=== PATIENT | female | born 1965 | race Caucasian/White ===

== ENCOUNTER 2024-10-20 07:59 | Outpatient (AMB) | payer BC, SELFPAY ==
--- NOTE | 2024-10-19 09:06 | MHC.NURWM ---
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
[2024-10-19 09:09] VITALS: BMI 35.2
--- NOTE | 2024-10-19 14:45 | MHC.NURWM ---
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
--- OUTSIDE RECORDS SUMMARY | 2024-10-20 08:08 | XMS_ITS | Encounter Summary ---
Author Organization [facility]: [facility] & [facility] Address [address] [facility] [address] [place] [address] Care Team Providers Care Crude Oil Treater Name Role Phone Generic, Provider Primary Care Provider [phone] Encounter Details Date Type Department Care Team (Late st Contact Info) Description 12/24/2011 [facility] Medicine at [address] [address] [address] Horner Social History Tobacco Use Types Packs/Day Years Used Date Smoking Tobacco: Every Day Cigarettes Comments:intermittent > 10 y ears Alcohol Use Standard Drinks/Week Comments Yes 0 (1 standard drink = 0.6 oz pur e alcohol) occasionally Sex and Gender Information Value Date Recorded Sex Assigned at Not on file Gender Identity Not on file Sexual Orientation Not on file documented as of this encounter Plan of Treatment Not on file documented as of this encounter Visit Diagnoses Not on filedocumented in this encounter Care Teams Crude Oil Treater Relationship Specialty Start Date End Date Generic, Provider [address] [address] PCP - General Generic/Test/No PCP 09/06/12 documented as of this encounter
--- OUTSIDE RECORDS SUMMARY | 2024-10-20 08:08 | XMS_ITS | Clinical Summary ---
Author Organization [facility] Address [address] [facility] [address] [place] [address] Care Team Providers Care Bush Hog Operator Name Role Phone No Pcp, Per Patient Primary Care Provider Unavai lable Allergies Active Allergy Reactions Criticality Noted Date Comments Codeine High 04/24/2024 Medications Medication Sig Dispensed Refills Start Date End Date Status ibuprofen 100 mg chewable tablet Chew 400 mg every 8 (eight) hours if needed for pain score 1-3. Active minoxidil (Loniten) 2.5 mg tabletIndications:And rogenetic alopecia Take 1/2 tablet nightly by mouth. 45 tablet 2 04/24/2024 Active finasteride (Proscar) 5 mg tabletIndications:And rogenetic alopecia TAKE 1 TABLET BY MOUTH DAILY BY MOUTH. 90 tablet 07/21/2024 Active Active Problems No known active problems Social History Tobacco Use Types Packs/Day Years Used Date Smoking Tobacco: Former Cigarettes Smokeless Tobacco: Never Tobacco Cessation:Counseling Given: Not Answered Sex and Gender Information Value Date Recorded Sex Assigned at Not on file Gender Identity Not on file Sexual Orientation Not on file Job Start Date Occupation Industry Not on file Not on file Not on file Plan of Treatment Upcoming Encounters Date Type Department Care Team (Late st Contact Info) Description 11/13/2024 4:00 PM EDT Office Visit [facility] Dermatology [address] [place] [address] Jade Jernigan MD [address] [place] [address] Health Maintenance Due Date Last Done Comments CT Colonography 1966 Colonoscopy 1966 Colorectal Cancer Screening 1966 FIT-DNA 1966 FIT 1966 FOBT 1966 HIV Screening 1966 Sigmoidoscopy 1966 Hepatitis B Vaccines (1 of 3 - 19+ 3-dose series) 1985 HPV/Cotest 02/04/1996 Pneumococcal Vaccine: 50+ Years (1 of 1 - PCV) 02/04/2016 COVID-19 Vaccine (4 - 2023-2 5 season) 2024 07/15/2021, 09/28/2020, 08/31/2020 Depression Screening 07/19/2024 Mammogram 09/02/2024 09/02/2022 Influenza Vaccine (Season Ended) 2025 Cervical Cancer Screening 07/27/2025 Pap Smear 07/27/2025 07/27/2022 DTaP/Tdap/Td Vaccines (2 - T d or Tdap) 04/17/2029 04/17/2019 Hepatitis A Vaccines Aged Out 04/17/2019 No long er eligible based on patient's age to complete this topic MMR Vaccines Completed 04/17/2019 Hepatitis C Screening Completed 07/27/2022 Zoster Vaccines Completed 08/04/2023, 04/18/2023 HIB Vaccines Aged Out No longer eligi ble based on patient's age to complete this topic HPV Vaccines Aged Out No longer eligi ble based on patient's age to complete this topic IPV Vaccines Aged Out No longer eligi ble based on patient's age to complete this topic Meningococcal B Vaccine Aged Out No l onger eligible based on patient's age to complete this topic Meningococcal Vaccine Aged Out No delfina arsenio eligible based on patient's age to complete this topic Rotavirus Vaccines Aged Out No longer eligible based on patient's age to complete this topic Care Teams Bush Hog Operator Relationship Specialty Start Date End Date No Pcp, Per Patient [place] PCP - General Seat Scooper Machine 04/24/24
--- OUTSIDE RECORDS SUMMARY | 2024-10-20 08:08 | XMS_ITS | Clinical Summary ---
Author Organization [facility] Address [address] [place] [phone] Phone Care Team Providers Care Pick Remover Name Role Phone Yas Alvarez MD Primary Care Provider [phone] Yas Alvarez MD Unavailable [phone] Allergies Active Allergy Reactions Criticality Noted Date Comments Codeine 02/07/2019 Medications Medication Sig Dispensed Refills Start Date End Date Status ergocalciferol (DRISDOL) 50,000 unit capsule take 1 capsule by mouth one time per week 8 capsule 5 03/21/2024 Active diclofenac sodium (VOLTAREN) 75 MG EC tablet TAKE 1 TABLET BY MOUTH TWICE A DAY NEEDED 60 tablet 5 08/22/2024 Active finasteride (PROSCAR) 5 mg tablet Take 5 mg by mouth daily. 07/21/2024 Active hydroCHLOROthiazide 12.5 mg capsuleIndications:L eg swelling Take 1 capsule (12.5 mg total) by mouth daily as needed (leg swelling). 30 capsule 3 10/18/2024 Active tirzepatide, weight loss, (ZEPBOUND) 2.5 mg/0.5 mL subcutaneous injection INJECT 0.5 ML (2.5 MG TOTAL) UNDER THE SKIN EVERY 7 DAYS 2 mL 1 01/03/2024 Discontinue d(No longer taking) tirzepatide, weight loss, (ZEPBOUND) 5 mg/0.5 mL subcutaneous injection Inject 0.5 mL (5 mg total) under the skin every 7 days. 4 mL 01/17/2024 Discontinue d(No longer taking) ondansetron (ZOFRAN-ODT) 4 MG disintegrating tablet Take 1 tablet (4 mg total) by mouth every 8 (eight) hours as needed for nausea. 20 tablet 01/17/2024 Discontinue d(No longer taking) Active Problems Problem Noted Date Diagnosed Date Class 1 obesity without seri ous comorbidity with body mass index (BMI) of 32.0 to 32.9 in adult 10/19/2024 Assessment & Plan (10/19/2024 8:25 AM EDT): Unable to tolerate GLP-1 medication She has consult with Dr. Tyrell Lr, I will send note and labs to his office Lab work she will do tomorrow through [facility] when she's fasting Prediabetes 10/19/2024 Assessment & Plan (10/19/2024 8:25 AM EDT): Recheck A1c today Low carb diet Weight loss Leg swelling 10/19/2024 Assessment & Plan (10/19/2024 8:26 AM EDT): She has responded well to HCTZ in the past She can use it as needed to help with the swelling Her BP is also borderline today. If her BP remains elevated, then she may need to be on this daily Weight loss, low sodium, and exercise will decrease BP too, and will help with the swelling Pre-op evaluation 01/17/2024 Assessment & Plan (01/17/2024 9:14 AM EDT): Cleared for surgery VSS, PE normal Meds: taking NSAIDs, which she will stop 1 week prior to surgery Previous surgeries: tolerated well without issue Denies personal or family history of bleeding/clotting disorder Cardiac: EKG not needed. Age <65, no history. BP normal, HR normal, heart sounds normal Respiratory: LS normal, normal O2 sat Blood work: CBC, CMP and PT/INR ordered Low risk for procedure Will fax note to: Dr. Lucia [phone]. Will send labs with the note Hyperlipidemia 08/03/2023 Assessment & Plan (10/19/2024 8:25 AM EDT): Recheck lipid panel Low fat diet, weight loss Grief reaction 01/01/2023 Assessment & Plan (01/01/2023 1:54 PM EDT): Low mood due to grief I recommend she speak with a therapist Go to [employer] to find someone, she would prefer to go in person As her mood stabilizes, I expect her compensatory reaction to gravitate towards sweets should subside as well If mood not getting better, then reach out and we can discuss medication management if she desires Hammer toe of left foot 11/05/2021 Toe pain, right 11/05/2021 Resolved Problems Problem Noted Date Diagnosed Date Resolved Date Overweight (BMI 25.0-29.9) 04/16/2023 0 10/19/2024 Assessment & Plan (01/17/2024 9:16 AM EDT): She is no longer obese, BMI is 29.57 Zepbound working well with tolerable side effects The left shoulder injury has impacted her ability to exercise, but after surgery/repair/rehab, she should be able to exercise more Continue with low carb diet Continue with Zepbound F/u in 6 months Assessment & Plan (06/25/2023 1:50 PM EST): Current weight of 194, she's lost 10lbs per our scale, since starting medication, which is greater than 5% of body weight Tolerating without any side effects She continues to qualify for Wegovy usage. Send this note along to get prior authorization Continue monitoring for symptoms and monitoring weight at home Continue with physical activity and low carb diet F/u in July for annual exam or sooner as needed Assessment & Plan (04/16/2023 11:35 AM EDT): Wegovy still in shortaged Ozempic too expensive OOP I will try to get this authorized again d/t continued supply issues with Wegovy. If we are unable to get it authorized, then she will go to [facility] prescribed if we start ozempic F/u in Jul or sooner as needed Hypertension 04/17/2019 08/09/2023 Lower extremity edema 06/27/2018 01/01/20232023 Assessment & Plan (06/25/2023 1:51 PM EST): No longer needs HCTZ d/t weight loss and swelling going away Assessment & Plan (04/16/2023 11:33 AM EDT): Better on 12.5 HCTZ. She never increased, stayed on this dose Continue, BP stable Hopefully she can come off the medicine once she loses weight Assessment & Plan (01/01/2023 1:53 PM EDT): She had edema in the past with weight gain, tried furosemide which didn't help I will try HCTZ. Reviewed SE. Her blood pressure is stable today. She has a BP cuff at home and at work that she can use to periodically check while taking Keep legs as elevated as she can She could also try compression stockings Agree with dietary changes- decreased carb/sugar consumption. She already follows low sodium diet Follow up in 1-2 months Encounters Date Type Department Care Team Description 10/18/2024 2:30 PM EDT Follow-Up [address] [address] Claire John, KID CLUB ATTENDANT Class 1 obesity without serious comorbidity with body mass index (BMI) of 32.0 to 32.9 in adult, unspecified obesity type (Primary Dx); Leg swelling; Vitamin D deficiency, unspecified; Iron deficiency; Prediabetes; Hyperlipidemia, unspecified hyperlipidemia type 08/22/[address] [address] Yas Alvarez MD Medication Refill from Last 3 Months Immunizations Name Administration Dates Next Due Hepatitis A, Adult 04/17/2019 MMR 04/17/2019 Tdap 04/17/2019 Typhoid, ViCPs 04/17/2019 Yellow Fever 04/17/2019,04/17/2019 Zoster recombinant 08/04/2023,04/18/2023 Family History Medical History Relation Comments Cardiomyopathy Father Diabetes Mother Colon cancer Paternal Grandmother Heart disease Paternal Uncle tachycardia Breast cancer Neg Hx Dementia Neg Hx Melanoma Neg Hx Stroke Neg Hx Relation Status Comments Father Alive Mother Alive Paternal Grandmother Paternal Uncle Social History Tobacco Use Types Packs/Day Years Used Date Smoking Tobacco: Former Cigarettes 0.3 15.6 1 08/02/2000 - 01/16/2017 Smokeless Tobacco: Never Tobacco Cessation:Counseling Given: Not Answered Alcohol Use Standard Drinks/Week Comments Never 0 (1 standard drink = 0.6 oz pur e alcohol) Education Answer Date Recorded Are you interested in more education? Not on shakeel e 11/13/2022 Are you concerned about learning? Not on file 11/13/2022 No 11/13/2022 No 11/13/2022 Digital Access Answer Date Recorded No 12/14/2022 No 12/14/2022 Reliable internet access at home? Not on file 12/14/2022 Device with a working camera? Not on file Sex and Gender Information Value Date Recorded Sex Assigned at Female 10/13/2024 10:44 AM EDT Gender Identity Female 10/13/2024 10:44 AM EDT Sexual Orientation Straight 10/13/2024 10 :44 AM EDT Last Filed Vital Signs Vital Sign Reading Time Taken Comments Blood Pressure 140/70 10/18/2024 2:40 PM EDT Pulse 73 10/18/2024 2:40 PM EDT Temperature 36.5 ??C (97.7 ??F) 10/18/2024 2:40 PM ED T Respiratory Rate - - Oxygen Saturation 95% 10/18/2024 2:40 PM EDT Inhaled Oxygen Concentration - - Weight 94.8 kg (209 lb) 10/18/2024 2:40 PM EDT Height 170 cm (5' 6.93 ) 08/03/2023 2:37 PM EST Body Mass Index 32.8 08/03/2023 2:37 PM EST Plan of Treatment Health Maintenance Due Date Last Done Comments COLOGUARD 2011 FIT TEST 2011 FOBT 2011 SIGMOIDOSCOPY 2011 VIRTUAL COLONOSCOPY 2011 PNEUMOCOCCAL VACCINES (50+ years) (1 of 1 - PCV) 02/04/2016 INFLUENZA VACCINE (#1) 2024 COVID-19 VACCINE (4 - 2023- season) 2024 07/15/2021, 09/28/2020, 08/31/2020 MAMMOGRAM 09/02/2024 09/02/2022, 09/02/2022 POTASSIUM LEVEL 01/16/2025 01/17/2024, 07/20, 07/27/2022, Additional history exists PAP SMEAR 07/27/2025 07/27/2022, 05/19, 02/07/2019, Additional history exists DEPRESSION SCREENING 10/18/2025 10/18/2024, 10/19/19 SCREENING FOR DIABETES 01/16/2027 01/17/2024, 2023 COLONOSCOPY 10/24/2027 10/23/2022 COLORECTAL CANCER SCREENING 10/24/2027 HIV ONE-TIME SCREENING (18-65 YEARS) 05/19/2028 Postponed from 02/04/1984 (Patient Declines / Guardian Declines) LIPID PANEL 08/12/2028 08/12/2023, 03/2023, 07/27/2022, Additional history exists SMOKING STATUS SCREENING (Every 5 Years) 01/16/2029 01/17/2024 Adult Td,Tdap Booster 04/17/2029 04/17/2019 HEPATITIS A VACCINES Aged Out 04/17/2019 No long er eligible based on patient's age to complete this topic HEPATITIS C SCREENING Completed 07/27/2022, 023 ZOSTER VACCINES Completed 08/04/2023, 04/18/2023 HIB VACCINES Aged Out No longer eligi ble based on patient's age to complete this topic MENINGOCOCCAL VACCINES (ACWY) Aged Out No longer eligible based on patient's age to complete this topic Medical Devices Not on file Procedures Procedure Name Priority Date/Time Associated Diagnosis Comments COMPREHENSIVE METABOLIC PANEL Routine 01/17/2024 5:12 PM EDT LIPID PANEL Routine 08/12/2023 11:16 AM EST HM COLONOSCOPY FOR RESULT ENTRY ONLY Routine 10/23/2022 THINPREP PAP & HPV Routine 07/27/2022 7: 10 PM EST HEPATITIS C ANTIBODY, QUALITATIVE Routine 07/27/2022 7:08 PM EST from Last 3 Months or Most Recently Relevant to Health Maintenance Results * Comprehensive metabolic panel (01/17/2024 5:12 PM EDT) Sodium 146 135 - 146 mEq/L [facility] Potassium 4.2 3.5 - 5.3 mEq/L [facility] Chloride 107 98 - 107 mEq/L [facility] CO2 30 20 - 31 mEq/L [facility] Anion Gap 9 4 - 14 [facility] Glucose 84 70 - 99 mg/dL [facility] BUN 13 6 - 20 mg/dL [facility] Creatinine 0.8 0.6 - 1.1 mg/dL [facility] GFR 77 >60 mL/min/1.7 3m^2 [facility] Calcium 10.1 8.4 - 10.2 mg/dL [facility] Corrected Calcium 9.6 8.4 - 10.2 mg/dL [facility] Protein, Total 6.8 6.2 - 8.2 g/dL [facility] Alkaline Phosphatase 51 0 - 130 U/L [facility] Albumin 4.6 3.4 - 5.2 g/dL [facility] ALT (SGPT) 16 0 - 40 U/L [facility] AST (SGOT) 14 0 - 33 U/L [facility] Bilirubin, Total 0.5 0.3 - 1.2 mg/dL [facility] 01/17/2024 5:12 PM EDT 01/17/2024 5:12 PM EDT Narrative Resulting Agency Comment No Claire John KID CLUB ATTENDANT LAB BLOOD ORDERABLES [facility] [address] [place] [address], [facility] * (ABNORMAL) Lipid panel (08/12/2023 11:16 AM EST) Cholesterol 228(H) <200 mg/dL [facility] Triglycerides 178(H) <150 mg/dL [facility] Cholesterol, HDL 51 >40 mg/dL [facility] LDL Cholesterol, Calculated 141(H) <129 mg/dL [facility] Cholesterol/HDL Ratio 4.47(H) <4.43 [facility] 08/12/2023 11:1 6 AM EST 08/12/2023 11:16 AM EST Narrative Resulting Agency Comment No Yas Alvarez MD LAB BLOOD ORDERABLES [facility] [address] * COLONOSCOPY FOR RESULT ENTRY ONLY (10/23/2022) Historical Provider [facility] * ThinPrep Pap & HPV (07/27/2022 7:10 PM EST) Clinical Information: Routine exam [facility] LMP: 0 [facility] Prev. PAP: NONE GIVEN [facility] Prev. BX: NONE GIVEN [facility] Source: Cervix [facility] Statement of Adequacy: Satisfactory for evaluation. Endocervical/camara sformation zone component present. [facility] Interpretation/ Result: Negative for intraepithelial lesion or malignancy. [facility] Comment: This Pap test has been evaluated with computer assisted technology. [facility] Cytotechnologis t: SXA, CT(ASCP) CT screening location: [address] LABORATORY Comment SEE NOTE [facility] Comment: EXPLANATORY NOTE: The Pap is a screening test for cervical cancer. It is not a diagnostic test and is subject to false negative and false positive results. It is most reliable when a satisfactory sample, regularly obtained, is submitted with relevant clinical findings and history, and when the Pap result is evaluated along with historic and current clinical information. HPV MRNA E6/E7 Not Detected Not Detected [facility] Comment: Methodology: Development Manager-Mediated Amplification This assay detects E6/E7 viral messenger RNA (mRNA) from 14 high-risk HPV types (16,18,31,33,35,39,45,51,52,56,58,59,66,68). Cervical sources are required for HPV testing. If a vaginal source from a patient who has had a total hysterectomy with removal of cervix was submitted, please contact the testing laboratory for alternative testing options. For additional information, please refer to http://education.[employer]/faq/DVS199k0 (This link if provided for information/ educational purposes only.) 07/27/2022 7:10 PM EST 07/27/2022 7:[address] [facility] - 07/31/2022 12:34 PM EST Testing performed at: [employer] [facility], [address] [place] [address] ([facility], [address], [place] Judge: ANTON TYLER MD Resulting Agency Comment No Yas Alvarez MD LAB BLOOD ORDERABLES Performing Organization Address [facility] Co de Phone Number [facility] [address] [address], [facility] * Hepatitis C antibody, qualitative (07/27/2022 7:08 PM EST) HepC AB Non Reactive Non Reactive;E quivocal;R eactive [facility] 07/27/2022 7:08 PM EST 07/27/2022 7:08 PM EST Yas Alvarez MD LAB BLOOD ORDERABLES Performing Organization Address [facility] [place] [address] from Last 3 Months or Most Recently Relevant to Health Maintenance Shikha Maloney M Personal/Family Self 1965 [address] [facility] [place] Joann Leonard, Shikha M Personal/Family Self 1965 [address] [place], [place] Joann Leonard, Shikha M Personal/Family Self 1965 [address] [place], [place] Joann Leonard, Shikha M Personal/Family Self 1965 [address] [place], [place] Shikha Maloney M Personal/Family Self 1965 [address] [place] [address]Shikha Beverly M Personal/Family Self 1965 [address] [place], [place] Shikha Maloney M Personal/Family Self 1965 [address] [place] Shikha Maloney M Personal/Family Self 1965 [address] [place], [place] Shikha Maloney M Personal/Family Self 1965 [address] [place], [place] Richard Maloneyna M Personal/Family Self 1965 [address] [place], [place] Shikha Maloney M Personal/Family Self 1965 [address] [place], [place] Joann Care Teams Pick Remover Relationship Specialty Start Date End Date Yas Alvarez MD [address] [place] [address] LOGAN Barnes [address] [email or web address] PCP - General Internal Medicine 02/07/19 Yas Alvarez MD [address] [place] [address] [place] [address] [email or web address] Insurance Assigned Provider 10/23/23 Additional Source Comments The information contained in this document represents components of the legal health record. It is not the complete legal health record.[facility]
--- OUTSIDE RECORDS SUMMARY | 2024-10-20 08:08 | XMS_ITS | Data Portability ---
Author Organization [place] [facility], [facility] Address [address] [place] [address] Care Team Providers Care Manager Of Compliance Name Role Phone JULIUS FLOREZ Primary Care Provider [phone] Assessment No assessment recorded. Plan of Treatment Reminders Order Date Submit Date Provider Last Modified By Organization Details Last Modified Time Details Appointments None recorded. Lab None recorded. Referral physical therapist referral - S/P Arthrosco pic Cuff Repair-Le ft Shoulder 2023 024 [email or web address] [facility] Physical [facility]), [address], [place], [address], 4 11:14:48 physical therapist referral - S/P Arthrosco pic Cuff Repair-Le ft Shoulder 2023 024 [facility] 2 [facility]), [address], [place], [address], 4 13:38:56 physical therapist referral - S/P LEFT Arthrosco pic Cuff Repair 2023 024 LAURA [facility]), [address], [place], [address], 4 15:27:23 Procedures None recorded. Surgeries None recorded. Imaging None recorded. Medication Orders Celebrex 200 mg capsule 2023 024 [email or web address] [facility] #[id number], [address] [place], [address], 13:26:02 tramadol 50 mg tablet 2023 024 [id number], [address] [place], [address], 13:37:14 tramadol 50 mg tablet 2023 024 [facility] #[id number], [address] [place], [address], 13:37:14 Patient TargetsNo targets recorded. Patient InstructionsNo instructions recorded. Reason for Referral Physical Therapist Referral for Rupture of rotator cuff of left shoulder POST OP REHAB S/P LEFT Arthroscopic Cuff Repair IF BICEP TENODESIS: NO ACTIVE ELBOW FLEXION X 3WEEKS NO RESISITED ELBOW FLEXION X 8 WEEKS Referring Physician: Saundra Chase, Physician Volunteer Services Assistant, Encounter Date: 02/11/2024 Physical Therapist Referral for Shoulder pain POST OP REHAB S/P Arthroscopic Cuff Repair-Left Shoulder IF BICEP TENODESIS: NO ACTIVE ELBOW FLEXION X 3WEEKS NO RESISITED ELBOW FLEXION X 8 WEEKS Referring Physician: Gertrude Lucia, Orthopedic Surgery, Encounter Date: 03/14/2024 Physical Therapist Referral for Strain of rotator cuff of shoulder POST OP REHAB S/P Arthroscopic Cuff Repair-Left Shoulder IF BICEP TENODESIS: NO ACTIVE ELBOW FLEXION X 3WEEKS NO RESISITED ELBOW FLEXION X 8 WEEKS Referring Physician: Gertrude Lucia, Orthopedic Surgery, Encounter Date: 04/25/2024 Problems No Known Problems Procedures Surgical History Date Name Laterality Status Provider Name and Address Organization Details Recorded Time 4 Orthopaedic Surgery completed Donnie Joy [facility] 02/11/2024 13:20:10 5 Other completed Murali Bowie [facility] 10/29/2023 08:58:29 Imaging Results None recorded. Procedure Notes None recorded. Medical Equipment None Reported. Allergies Allergen ID Allergen Name Allergen Category Reaction Reaction Severity Criticality Documentation Date Start Date Code Code System Note Provider Name and Address Organization Details Recorded Time [id number] codeine medicatio n Not available Not available Not available 10/29/2023 2670 RxNorm Murali mora [facility] 08:58:21 Medications Name Sig Start Date Stop Date Status Note LastModified by Organization Details LastModified Time hydrocodon e 5 mg-acetami nophen 325 mg tablet Take 1 tabs every 4-6 hours by oral route PRN pain. 02/10 completed Not Available Not Available Not Available tramadol 50 mg tablet 1 PO Q HS PRN PAIN 04/25 completed Not Available Not Available Not Available Kenalog 40 mg/mL suspension for injection Take 2 mL by injectio n route. 03/14 completed US Guided Not Available Not Available Not Available Celebrex 200 mg capsule 2023 active Not Available Not Available Not Avai lable Advil 200 mg tablet Take 2 tablets every 12 hours by oral route. active Not Available Not Available No t Available finasterid e active Not Available Not Available Not Available diclofenac sodium active Not Available Not Available Not Available Tylenol active prn Not Available Not Avail able Not Available Vitals Date Recorded Body height Provider Name an d Address Organization Details Last Updated DateTime 02/11/2024 170.18 cm Donnie Joy [facility] 02/11/2024 13:19:44 Date Recorded Body height Body mass index (BMI) Body weight Provider Name and Address Organization Details Last Updated DateTime 03/14/2024 170.18 cm 28.2 kg/m2 12619.63 g Shea booth [facility] 03/14/2024 12:52:38 Date Recorded Body height Provider Name an d Address Organization Details Last Updated DateTime 04/25/2024 170.18 cm Shea Amos [facility] 04/25/2024 13:37:04 Date Recorded Body height Provider Name an d Address Organization Details Last Updated DateTime 06/27/2024 170.18 cm Josefina Kong [facility] Kareem riddle [facility] 06/27/2024 13:17:05 Date Recorded Body height Provider Name an d Address Organization Details Last Updated DateTime 08/31/2024 170.18 cm Donnie Joy [facility] 08/31/2024 17:02:54 Social History Question Answer Notes LastModified by Organizat ion Details LastModified Time Tobacco Smoking Status Former Smoker Murali mora [facility] 10/29/2023 08:58:26 What Is Your Level Of Alcohol Consumption? None [email or web address] Information not available 10/29/2023 Are You Currently Employed? Yes Information not available 03/14/2024 Do You Or Have You Ever Used E-cigarettes Or Vape? 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 1-2 Times Per Week Information not available 03/14/2024 Do You Or Have You Ever Used Smokeless Tobacco? Never Used Smokeless Tobacco [email or web address] Information not available 10/29/2023 How Much Tobacco Do You Smoke? No [email or web address] Information not available 10/29/2023 How Many Years Have You Smoked Tobacco? 10 Information not available 03/14/2024 Sex: Unknown Functional Status Question Answer Note LastModified by Organizat ion Details LastModified Time What is your exercise level? Occasional Information not available 03/14/2024 Mental Status None recorded. Family History Relationship Description Onset Age of this Age Resolved Age Notes LastModified by Organization Details LastModified Time Maternal Uncle Pulmonary embolism Not available 2023 12:55:13 Maternal Grandmother Deep venous thrombosis Not available 03/14 12:55:22 Medical History Condition Response HIV or AIDS N High Blood Pressure N Irregular Heartbeat N MRSA N Any Other Significant Medical Issues Y Weight Gain / Loss N Hearing Loss N Angina, Heart Failure or Attack N Night Sweats N Seizures / Epilepsy N Osteoarthritis / Rheumatoid arthritis / Other N Cancer N Stroke N Ulcer / Stomach Bleeding / Indigestion N Visual Loss or Glaucoma N Blood Clots / Phlebitis N Heart Problems N Depression or Anxiety N Emphysema / Chronic Bronchitis N Reaction to General/Local Anesthesia N Hepatitis / Jaundice N Kidney / Bladder Infections N Diabetes N Bleeding Disorder N Chemical Dependency / Alcoholism N Psoriasis / Skin Rash N Thyroid Disorder N Heart Disease N Asthma / Shortness of Breath / Sleep Party Plan Sales Unit Advisor ea (please specify) N Pulmonary Embolism N Gynecological HistoryNo gynecological history recorded. Obstetrics History GPAL:G 0 P 0 0 0 0 Past Encounters Encounter ID Performer Location Encounter Start Date Encounter Closed Date Diagnosis/Indication Diagnosis SNOMED-CT Code Diagnosis ICD10 Code Diagnosis Note [id number] RASHMI DEL VALLE [facility] [address] [place] [address] 10/29/2023 08:21:29 10/29/2023 09:25:25 Bursitis of left shoulder 5340305392 97908 M75.52 [id number] RASHMI DEL VALLE [address] [address] 11/08/2023 14:12:08 11/08/2023 15:05:40 Strain of rotator cuff of shoulder 216806113 S46.012A [id number] GERTRUDE LUCIA MD [address] [address] 11/11/2023 13:25:14 11/11/2023 14:52:31 Bursitis of left shoulder 3247234690 05112 M75.52 Impingemen t syndrome of left shoulder region 1226600705 52429 M75.42 Pain of ri ght shoulder joint 8930547990 5827780 M25.511 Strain of rotator cuff of shoulder 683246964 S46.011A [id number] RASHMI DEL VALLE [address] [address] 12/02/2023 09:45:14 12/02/2023 11:30:03 Bone spur of left shoulder 9059880367 46174 M25.712 Impingemen t syndrome of left shoulder region 1904574189 43414 M75.42 [id number] RASHMI DEL VALLE [facility] Office [address] [address] 02/11/2024 13:00:48 02/11/2024 13:59:33 Pain of left shoulder joint 0253612649 3690647 M25.512 Rupture of rotator cuff of left shoulder 5284806195 5465694 M75.102 Shoulder pain 48609149 M 25.229 [id number] [facility] [address] [place] [address] 03/14/2024 12:47:57 03/14/2024 13:38:56 Strain of rotator cuff of shoulder 972602210 S46.012A Shoulder pain 11799807 M 25.623 [id number] [facility] [address] [place] [address] 04/25/2024 13:34:23 04/25/2024 13:59:12 Strain of rotator cuff of shoulder 059700224 S46.012D [id number] GERTRUDE LUCIA MD [facility] [address] [place] [address] 06/27/2024 13:08:38 06/27/2024 14:00:23 Bursitis of left shoulder 2451510268 94177 M75.52 Bone spur of left shoulder 9238022557 43735 M25.712 Impingemen t syndrome of left shoulder region 4590682737 97921 M75.42 Strain of rotator cuff of shoulder 236336540 S46.012D [id number] Gertrude Lucia MD [place] [facility] [address] [place] [address] 08/31/2024 17:02:38 08/31/2024 18:04:43 Strain of rotator cuff of shoulder 218867301 S46.011D Health Concerns Section Related Observation LastModified by Organization Detai ls LastModified Time None Recorded Concern Status LastModified by Organization Details LastModified Time None Recorded Advance Directives Directive None Recorded Payers Encounter Date Sequence Insurance Name Policy Number Policy Jin Covered Member ID Jin Member ID Guarantor Name 02/11/2024 1 [place] [id number] Herminio Leonard [id number] Shikha Leonard 03/14/2024 1 [place] [id number] Herminio Leonard [id number] Shikha Leonard 04/25/2024 1 [place] [id number] Herminio Leonard [id number] Shikha Leonard 06/27/2024 1 [place] [id number] Herminio Destini AlbertoHoracio [id number] Shikha Leonard 08/31/2024 1 [place] [id number] Herminio Leonard [id number] Shikha Leonard Notes Date Note Type Note Provider Name and Address Organization Details Recorded Time 02/11/2024 text/html Shikha presents today for her first postop visit status post left shoulder rotator cuff repair. He is doing okay. Nighttime is the worst for her. On exam, portals are healing well without evidence of infection, there is no erythema, no drainage. Sutures are removed today. Normal elbow, wrist and hand motion. Neurovascular intact. We discussed post op care. We reviewed the surgery. Physical therapy can start next week, one - two times per week. Sling is to be worn at all times including bedtime, but should be removed multiple times a day, typically meals and showers are a good time to do this. Ice and anti-inflammatories are recommended for pain. No lifting or overhead activities at this time. Follow up is [address] Lucia. RASHMI DEL VALLE [address] [place] [address], [phone], [facility] 02/15/2024 17:37:34 03/14/2024 text/html Shikha comes in today, doing okay. She is very protective of the shoulder that is a bit stiff, so I have encouraged her to wean out of the sling, really work on stretching. Continue physical therapy. Back in 6 weeks. GERTRUDE LUCIA MD [address] [place] [address], [phone], [facility] 03/15/2024 08:20:55 04/25/2024 text/html Shikha is doing great 3 months out, full range of motion, minimal discomfort. Very happy with where she is. Continue PT. Let us add some massage for rhomboid pain and recheck in 2 months. GERTRUDE LUCIA MD [address] [place] [address], [phone], [facility] 04/26/2024 08:24:44 06/27/2024 text/html Shikha comes in today 5 months out, doing remarkably well. She has full range of motion. No pain. She is very happy with her progress. Home exercise program. Recheck via telehealth in 2 months. GERTRUDE LUCIA MD [address] [place] [address], [phone], [facility] 06/28/2024 10:53:21 08/31/2024 text/html Shikha is a cqmd-[id number]-j-half months out from repair of the rotator cuff, doing great. She has great motion except for internal rotation is improving, but she has no pain. She can continue home exercise program. Follow up p.r.n., [id number] encounter. This visit was conducted as a real time interactive TeleHealth audio & visual via [employer]. The patient was identified by name and date of and consented to this TeleHealth visit. The patient was at their home in [place] and I was at my [place] office. Participants of the telehealth visit included myself and the patient. This was done over the course of 10 minutes including record review. Gertrude Lucia MD [address] [place] [address], [place], [phone], [facility] 09/01/2024 08:04:46 OBGyn Episode No OBEpisode recorded.
--- OUTSIDE RECORDS SUMMARY | 2024-10-20 08:08 | XMS_ITS | Referral Summary ---
Author Organization [facility]: [facility] & [facility] Care Address [address] [place] [address] [address] [place] [address] Care Team Providers Care Breast Worker Name Role Phone Generic, Provider Primary Care Provider +[phone] [phone] Allergies Active Allergy Reactions Criticality Noted Date Comments Codeine 11/15/2009 Medications Medication Sig Dispensed Refills Start Date End Date Status buPROPion SR (WELLBUTRIN-SR) 100 MG PO TB12 Take 1 Tab by mouth DAILY. Wellbutrin SR 30 3 11/15/2009 Active Social History Tobacco Use Types Packs/Day Years Used Date Smoking Tobacco: Every Day Cigarettes Comments:intermittent > 10 y ears Alcohol Use Standard Drinks/Week Comments Yes 0 (1 standard drink = 0.6 oz pur e alcohol) occasionally Sex and Gender Information Value Date Recorded Sex Assigned at Not on file Gender Identity Not on file Sexual Orientation Not on file Last Filed Vital Signs Vital Sign Reading Time Taken Comments Blood Pressure 108/72 11/15/2009 3:40 PM EDT Pulse - - Temperature - - Respiratory Rate - - Oxygen Saturation - - Inhaled Oxygen Concentration - - Weight 75.8 kg (167 lb) 11/15/2009 3:40 PM EDT Height 172.7 cm (5' 8 ) 11/15/2009 3:40 PM EDT Body Mass Index 25.39 11/15/2009 3:40 PM EDT Plan of Treatment Not on file Care Teams Breast Worker Relationship Specialty Start Date End Date Generic, Provider [address] [address] PCP - General Generic/Test/No PCP 09/06/12
--- OUTSIDE RECORDS SUMMARY | 2024-10-20 08:08 | XMS_ITS | Clinical Summary ---
Author Organization [facility] lin Address [address] [facility] [place] [address] Care Team Providers Care Dish Carrier Name Role Phone Unavailable Primary Care Provider Unavailabl e Immunizations Name Administration Dates Next Due Shingrix Recombinant Dose 04/18/2023 Social History Tobacco Use Types Packs/Day Years Used Date Smoking Tobacco: Never Assessed Comments Unknown Sex and Gender Information Value Date Recorded Sex Assigned at Not on file Legal Sex Female 8:35 PM EDT Gender Identity Not on file Sexual Orientation Not on file Plan of Treatment Health Maintenance Due Date Last Done Comments Colorectal Cancer: COLONOSCO PY Screening every 10 yrs (or Modifier) 1966 Depression: Screening Annual ly using PHQ-2/9 in Adults 18 yrs or above (or HM Modifier)([facility]) 02/04/1984 Hepatitis C Virus Infection in Adolescents and Adults: Screening (or Modifier) ([facility]) 02/04/1984 [facility] Screening Reminder: Kaylene barahona for all adults ([facility]) 02/04/1984 Tobacco Smoking Cessation: i n Adults excluding Women: Behavioral and Pharmacotherapy Interventions ([facility]) 02/04/1984 Cervical Cancer Screenin 1-65 yrs of age (or Modifier) 1987 Cervical Cancer Screening: P ap every 3 yrs pts age 21-65 1987 Cervical Cancer: Pap Screeni ng with Modifier timing ([facility]) 1987 Cervical Cancer: hrHPV alone or with cotesting Pap for Pts 30-65yrs screening every 5yrs ([facility]) 1987 Colorectal Cancer Screening 45 -75 Yrs (or HM Modifier) 2011 Colorectal Cancer: FLEXIBLE SIGMOIDOSCOPY Screening every 5 yrs 2011 Colorectal Cancer: Fecal Immunochemical Test (FIT) Annually [facility] 2011 Colorectal Cancer: High-sens itivity gFOBT Screening Annually [facility] 2011 Colorectal Cancer: Stool Col oguard Screening every 3 yrs 2011 Colorectal Cancer:CT Colonog owen Screening every 5 yrs 2011 Lipid Screening: Every 5 yrs for Women aged 45+ (or HM Modifier) ([facility]) 02/04/2012 Breast Cancer: Screening Kaylene ually age 50-74 yrs (or HM Modifier)([facility]) 02/04/2016 Zoster/Shingles Vaccine Seri es Screening: Adults aged 18+ yrs (or HM Modifiers)([facility]) (2 of 2) 06/13/2023 04/18/2023 Flu Vaccination: Yearly for ages 18mos through 64 years (or Modifier)([facility]) 02/17/2024 COVID-19 Vaccine Screening: Initial Series and Booster Status ([facility]) ( - 2023- season) 2024 DTaP/Tdap/Td Vaccines ([facility]) (2 - Td or Tdap) 04/17/2029 04/17/2019 Pneumococcal Vaccination Scr eening: Pts 0-19 & 19-49 yrs of age ([facility]) Aged Out No longer eligible b ased on patient's age to complete this topic Medical Devices Not on file Insurance [facility]
--- OUTSIDE RECORDS SUMMARY | 2024-10-20 08:08 | XMS_ITS | Encounter Summary ---
Author Organization [facility]: [facility] & [facility] Care Address [address] [facility] [address] [place] [address] Care Team Providers Care Freight Car Cleaner Name Role Phone Generic, Provider Primary Care Provider +1-000-0 00-0000 Encounter Details Date Type Department Care Team (Late st Contact Info) Description 03/04/2010 [facility] at [address] [address] MRI of the Lumbar Spine-02/28/10 Social History Tobacco Use Types Packs/Day Years [...] on filedocumented in this encounter Care Teams Freight Car Cleaner Relationship Specialty Start Date End Date Generic, Provider [address] [address] PCP - General Generic/Test/No PCP 09/06/12 documented as of this encounter
--- OUTSIDE RECORDS SUMMARY | 2024-10-20 08:08 | XMS_ITS | Encounter Summary ---
Author Organization [facility] Address [address] [facility] [address] [place] [address] Care Team Providers Care Data Integrity Specialist Name Role Phone No Pcp, Per Patient Primary Care Provider Unajenniferi labbubba Reason for Visit * Reason Comments Med Refill Encounter Details Date Type Department Care Team (Late st Contact Info) Description 07/21/2024 Refill [facility] [address] [place] [address] Jade Jernigan MD [address] [place] [address] Androgenetic alopecia Social History Tobacco Use Types Packs/Day Years Used Date Smoking Tobacco: Former Cigarettes Smokeless Tobacco: Never Sex and Gender Information Value Date Recorded Sex Assigned at Not on file Gender Identity Not on file Sexual Orientation Not on file Job Start Date Occupation Industry Not on file Not on file Not on file documented as of this encounter Miscellaneous Notes * Telephone Encounter - Jade Jernigan MD - 07/21/2024 1:14 PM EST Approving, but needs appt for additional refills. * Telephone Encounter - Claire Wilkinson - 07/21/2024 12:57 PM EST LV 04/24/24, rx pended. documented in this encounter Plan of Treatment Upcoming Encounters Date Type Department Care Team (Late st Contact Info) Description 11/13/2024 4:00 PM EDT Office Visit [facility] [address] [place] [address] Jade Jernigan MD [address] [place] [address] documented as of this encounter Visit Diagnoses Diagnosis Androgenetic alopecia documented in this encounter Care Teams Data Integrity Specialist Relationship Specialty Start Date End Date No Pcp, Per Patient NM PCP - General Radiotelegraphist 04/24/24 documented as of this encounter
--- OUTSIDE RECORDS SUMMARY | 2024-10-20 08:08 | XMS_ITS | Clinical Summary ---
Author Organization [facility]: [facility] & [facility] Care Address [address] [place] [address] [address] [facility] [address] [place] [address] Care Team Providers Care Regional Ehs Manager Name Role Phone Generic, Provider Primary Care Provider +1-000-0 00-0000 Allergies Active Allergy Reactions Criticality Noted Date Comments Codeine 11/15/2009 Medications Medication Sig Dispensed Refills Start Date End Date Status buPROPion SR (WELLBUTRIN-SR) 100 MG PO TB12 Take 1 Tab by mouth DAILY. Wellbutrin SR 30 3 11/15/2009 Active Family History Medical History Relation Comments GI Father diverticolosis Diabetes Type 1 Mother Colon Cancer Paternal Grandmother Heart Disorder Paternal Grandmother cardiomyopt hy Heart Surgery Paternal Uncle cardiomyopathy Relation Status Comments Father Mother Paternal Grandmother Paternal Uncle Social History Tobacco [...] 11/15/2009 3:40 PM EDT Plan of Treatment Health Maintenance Due Date Last Done Comments Cholesterol 1966 HIV Screening 1981 Hepatitis C Screening 02/04/1984 DTaP/Tdap/Td Vaccines (1 - Tdap) 1985 Hepatitis B Vaccines (1 of 3 - 19+ 3-dose series) 1985 PAP Smear 1987 Colonoscopy 2011 Colorectal Cancer Screening 2011 FIT-DNA 2011 FIT 2011 FOBT 2011 Flexible Sigmoidoscopy 2011 Zoster (Shingles) Vaccines ( 1 of 2) 02/04/2016 COVID-19 Vaccine (2023-2 5 season) 2024 Influenza Vaccine (#1) 2024 Screening Mammogram Discontinued 07/18/2008 HIB Vaccines Aged Out No longer eligi ble based on patient's age to complete this topic HPV Vaccines Aged Out No longer eligi ble based on patient's age to complete this topic Hepatitis A Vaccines Aged Out No long er eligible based on patient's age to complete this topic IPV Vaccines Aged Out No longer eligi ble based on patient's age to complete this topic Meningococcal B (MenB) Vaccines Aged Out No longer eligible based on patient's age to complete this topic Meningococcal Vaccines Aged Out No lo nger eligible based on patient's age to complete this topic Pneumococcal Vaccine: Pediat rics (0-5 years) and At-Risk Patients (6-50 years) Aged Out No longer eligible b ased on patient's age to complete this topic Care Teams Regional Ehs Manager Relationship Specialty Start Date End Date Generic, Provider [address] [address] PCP - General Generic/Test/No PCP 09/06/12
--- OUTSIDE RECORDS SUMMARY | 2024-10-20 08:08 | XMS_ITS | Encounter Summary ---
Author Organization Formerly [facility] Address [address] [place] [address] [place] [phone] Phone Care Team Providers Care Dyed Raw Stock Blower Feeder Name Role Phone Yas Alvarez MD Primary Care Provider [phone] Yas Alvarez MD Unavailable [phone] Encounter Details Date Type Department Care Team (Late st Contact Info) Description 10/18/2024 2:30 PM EDT Follow-Up [facility] [address] [address] Claire John, [facility] [address] [facility]. [address] [place] [address] Class 1 obesity without serious comorbidity with body mass index (BMI) of 32.0 to 32.9 in adult, unspecified obesity type (Primary Dx); Leg swelling; Vitamin D deficiency, unspecified; Iron deficiency; Prediabetes; Hyperlipidemia, unspecified hyperlipidemia type Social History Tobacco Use Types Packs/Day Years Used Date Smoking Tobacco: Former Cigarettes 0.3 15.6 1 08/02/2000 - 01/16/2017 Smokeless Tobacco: Never Alcohol Use Standard Drinks/Week Comments Never 0 [...] Orientation Straight 10/13/2024 10 :44 AM EDT documented as of this encounter Last Filed Vital Signs Vital Sign Reading Time Taken Comments Blood Pressure 140/70 10/18/2024 2:40 PM EDT Pulse 73 10/18/2024 2:40 PM EDT Temperature 36.5 ??C (97.7 ??F) 10/18/2024 2:40 PM ED T Respiratory Rate - - Oxygen Saturation 95% 10/18/2024 2:40 PM EDT Inhaled Oxygen Concentration - - Weight 94.8 kg (209 lb) 10/18/2024 2:40 PM EDT Height - - Body Mass Index 32.8 08/03/2023 2:37 PM EST documented in this encounter Progress Notes * Claire John, S[employer] - 10/18/2024 2:30 PM EDT HPI: Shikha is a 59 yo F with PMHx including but not limited to obesity, hair loss, and HLD presenting for follow up on obesity chronic problems. She has recovered well since her left shoulder surgery lastsummer. Now has a new job she likes. However, her weight continues to be a source of stress for her. She tried using injectable GLP medication, but was unable to tolerate them. When she has some weight gain, she gets swelling and often pitting edema in her legs. This causes pain, and then she can'texercise, so she gains more weight. She also sometimes uses food as a coping mechanism. She doesn'tfeel good with the added weight- increased anxiety, lower mood, fatigue, joint pain. She also worries about the potential for chronic disease, such as diabetes and heart disease. She has a consult with bariatric surgeon, Dr. Tyrell Lr this Wednesday. Problem List: Patient Active Problem List Diagnosis Hammer toe of left foot Toe pain, right Grief reaction Hyperlipidemia Pre-op evaluation Class 1 obesity without serious comorbidity with body mass index (BMI) of 32.0 to 32.9 in adult Prediabetes Leg swelling Current Medications: Current Outpatient Medications Medication Sig Dispense Refill Last Dispense diclofenac sodium (VOLTAREN) 75 MG EC tablet TAKE 1 TABLET BY MOUTH TWICE A DAY NEEDED 60 tablet5 Unknown (outside pharmacy) finasteride (PROSCAR) 5 mg tablet Take 5 mg by mouth daily. Unknown (patient-reported) ergocalciferol (DRISDOL) 50,000 unit capsule take 1 capsule by mouth one time per week 8 capsule 5 Unknown (outside pharmacy) hydroCHLOROthiazide 12.5 mg capsule Take 1 capsule (12.5 mg total) by mouth daily as needed (leg swelling). 30 capsule 3 Unknown (outside pharmacy) No current facility-administered medications for this visit. Allergies Allergies Allergen Reactions Codeine Review of Systems: Review of Systems Constitutional: Positive for fatigue. Negative for fever. Respiratory: Negative for cough and shortness of breath. Cardiovascular: Positive for leg swelling. Negative for palpitations. Gastrointestinal: Negative for constipation, diarrhea and vomiting. Musculoskeletal: Positive for arthralgias. Neurological: Negative for dizziness. Vitals: Vitals: 10/18/24 1440 BP: (!) 140/70 Pulse: 73 Temp: 36.5 ??C (97.7 ??F) SpO2: 95% Weight: 94.8 kg (209 lb) Body mass index is 32.8 kg/m??. Physical Exam: Physical Exam Vitals reviewed. Constitutional: Appearance: She is obese. She is not ill-appearing. Eyes: General: No scleral icterus. Extraocular Movements: Extraocular movements intact. Cardiovascular: Rate and Rhythm: Normal rate. Pulmonary: Effort: Pulmonary effort is normal. Neurological: Mental Status: She is alert and oriented to person, place, and time. Gait: Gait normal. Assessment/Plan: Problem List Items Addressed This Visit Endocrine Hyperlipidemia Current Assessment & Plan Recheck lipid panel Low fat diet, weight loss Relevant Orders Lipid panel Class 1 obesity without serious comorbidity with body mass index (BMI) of 32.0 to 32.9 in adult Current Assessment & Plan Unable to tolerate GLP-1 medication She has consult with Dr. Tyrell Lr, I will send note and labs to his office Lab work she will do tomorrow through [facility] when she's fasting Relevant Orders Hemoglobin A1c CBC and differential Comprehensive metabolic panel Prediabetes Current Assessment & Plan Recheck A1c today Low carb diet Weight loss Relevant Orders Hemoglobin A1c RESOLVED: Overweight (BMI 25.0-29.9) Other Leg swelling Current Assessment & Plan She has responded well to HCTZ in the past She can use it as needed to help with the swelling Her BP is also borderline today. If her BP remains elevated, then she may need to be on this daily Weight loss, low sodium, and exercise will decrease BP too, and will help with the swelling Relevant Medications hydroCHLOROthiazide 12.5 mg capsule Other Visit Diagnoses Vitamin D deficiency, unspecified Relevant Orders 25-OH vitamin D Iron deficiency Relevant Orders CBC and differential Iron and iron binding capacity Ferritin documented in this encounter Miscellaneous Notes * Assessment & Plan Note - Claire John FNP - 10/19/2024 8:26 AM EDT Associated Problem(s): Leg swelling She has responded well to HCTZ in the past She can use it as needed to help with the swelling Her BP is also borderline today. If her BP remains elevated, then she may need to be on this daily Weight loss, low sodium, and exercise will decrease BP too, and will help with the swelling * Assessment & Plan Note - Claire John FNP - 10/19/2024 8:25 AM EDT Associated Problem(s): Hyperlipidemia Recheck lipid panel Low fat diet, weight loss * Assessment & Plan Note - Claire John FNP - 10/19/2024 8:25 AM EDT Associated Problem(s): Prediabetes Recheck A1c today Low carb diet Weight loss * Assessment & Plan Note - Claire John FNP - 10/19/2024 8:25 AM EDT Associated Problem(s): Class 1 obesity without serious comorbidity with body mass index (BMI) of 32.0 to 32.9 in adult Unable to tolerate GLP-1 medication She has consult with Dr. Tyrell Lr, I will send note and labs to his office Lab work she will do tomorrow through [facility] when she's fasting documented in this encounter Plan of Treatment Scheduled Orders Name Type Priority Associated Diagnoses Orde r Schedule Hemoglobin A1c Lab Routine Prediabetes Class 1 obesity without serious comorbidity with body mass index (BMI) of 32.0 to 32.9 in adult, unspecified obesity type Expected: 10/18/2024, Expires: 10/18/2025 CBC and differential Lab Routine Iron deficiency Class 1 obesity without serious comorbidity with body mass index (BMI) of 32.0 to 32.9 in adult, unspecified obesity type Expected: 10/18/2024, Expires: 10/18/2025 Iron and iron binding capacity Lab Routine Iron deficiency Expected: 10/18/2024, Expires: 10/18/2025 Comprehensive metabolic panel Lab Routine Class 1 obesity without serious comorbidity with body mass index (BMI) of 32.0 to 32.9 in adult, unspecified obesity type Expected: 10/18/2024, Expires: 10/18/2025 Lipid panel Lab Routine Hyperlipidemia, unspecified hyperlipidemia type Expected: 10/18/2024, Expires: 10/18/2025 25-OH vitamin D Lab Routine Vitamin D deficiency, unspecified Expected: 10/18/2024, Expires: 10/18/2025 Ferritin Lab Routine Iron deficiency Expected: 10/18/2024, Expires: 10/18/2025 documented as of this encounter Visit Diagnoses Diagnosis Class 1 obesity without serious comorbidity with body mass index (BMI) of 32.0 to 32.9 in adult, unspecified obesity type- Primary Leg swelling Swelling of limb Vitamin D deficiency, unspecified Iron deficiency Disorders of iron metabolism Prediabetes Other abnormal glucose Hyperlipidemia, unspecified hyperlipidemia type documented in this encounter Additional Health Concerns Assessment Noted Time PHQ-9 Depression Total Score: 5 10/19/19 25 2:44 PM EDT PHQ-2 Depression Total Score: 2 10/19/19 25 2:44 PM EDT documented as of this encounter Care Teams Dyed Raw Stock Blower Feeder Relationship Specialty Start Date End Date Yas Alvarez MD [address] [place] [phone] [email or web address] PCP - General Internal Medicine 02/07/19 Yas Alvarez MD [address] [place] [id number] Insurance Assigned Provider 10/23/23 documented as of this encounter Additional Source Comments The information contained in this document represents components of the legal health record. It is not the complete legal health record.Formerly [facility]
--- OUTSIDE RECORDS SUMMARY | 2024-10-20 08:08 | XMS_ITS | Clinical Summary ---
Author Organization [facility] Address [address] [place] [address] Care Team Providers Care Librarian Special Library Name Role Phone Yas Alvarez MD Primary Care Provider [phone] Allergies Active Allergy Reactions Criticality Noted Date Comments Codeine Nausea/GI Upset 11/15/2009 Medications Diclofenac Sodium (VOLTAREN) 75 MG EC tablet Take 75 mg by mouth 2 (two) times a day if needed. Active Zepbound 2.5 MG/0.5ML auto-injector Inject 2.5 mg under the skin every 7 (seven) days Active Ketoconazole (NIZORAL) 2 % creamIndication s:Intertrigo Apply topically 2 (two) times a day Apply to affected area. 30 g 4 04/11/20 25 Active Triamcinolone Acetonide (KENALOG) 0.1 % ointmentIndicat ions:Intertrigo Apply topically 2 (two) times a day if needed for rash APPLY TO AFFECTED AREA. 60 g 2 4 04/11/20 25 Active Social History Tobacco Use Types Packs/Day Years Used Date Smoking Tobacco: Never Assessed Intimate Partner Violence Answer Date R ecorded Fear of Current or Ex-Partner Not on file Emotionally Abused Not on file 03/11/2023 Physically Abused Not on file 03/11/2023 Sexually Abused Not on file 03/11/2023 Feel Safe at Home Not on file 03/11/2023 Comments No Sex and Gender Information Value Date Recorded Sex Assigned at Not on file Legal Sex Female 10:05 AM EST Gender Identity Not on file Sexual Orientation Not on file Last Filed Vital Signs Vital Sign Reading Time Taken Comments Blood Pressure 103/69 01/02/2024 11:18 AM EDT Pulse 98 01/02/2024 11:18 AM EDT Temperature 37.2 ??C (99 ??F) 01/02/2024 11:18 AM EDT Respiratory Rate - - Oxygen Saturation - - Inhaled Oxygen Concentration - - Weight - - Height - - Body Mass Index - - Plan of Treatment Health Maintenance Due Date Last Done Comments Hepatitis C Screening 1966 Pap Smear 1982 DTaP/Tdap/Td (1 - Tdap) 02/04/1984 Hep B (1 of 3 - 19+ 3-dose series) 1985 Colon Cancer Screening 2011 Pneumococcal 50+ years (1 of 1 - PCV) 02/04/2016 Zoster (Shingrix) (1 of 2) 02/04/2016 Mammogram/Breast Imaging 09/02/2023 023, 09/02/2022, 07/25/2015, Additional history exists COVID-19 Vaccine ( season) 2024 Influenza (#1) 2024 Bone Density Discontinued 09/02/2022 LDL Cholesterol Discontinued 08/12/2023, 03/2023, 02/07/2019 HPV Vaccine Aged Out No longer eligi ble based on patient's age to complete this topic Hep A Aged Out No longer eligi ble based on patient's age to complete this topic Hib Aged Out No longer eligi ble based on patient's age to complete this topic Meningococcal ACWY Aged Out No longer eligible based on patient's age to complete this topic Procedures * Due to [place] law, this organization might not be sharing negative HIV tests. Procedure Name Priority Date/Time Associated Diagnosis Comments DXA BONE DENSITY STUDY AXIAL (LSSPINE, HIP) (DX: OSTEOPENIA) Routine 09/02/2022 3:30 PM EST MAMMOGRAM SCREENING TOMOSYNTHESIS, BILATERAL Routine 09/02/2022 3:23 PM EST Breast cancer screening by mammogram from Last 3 Months or Most Recently Relevant to Health Maintenance Results * Due to [place] [employer] law, this organization might not be sharing negative HIV tests. * DXA BONE DENSITY STUDY AXIAL (LSSPINE, HIP) (DX: OSTEOPENIA 85.89) FC (09/02/2022 3:30 PM EST) Anatomical Region Laterality Modality BONE DENSITY Impressions 09/03/2022 10:15 AM EST : Osteopenia (low bone mineral density/mass) RECOMMENDATIONS: Treatment decisions should be based on the combination of BMD scores and assessment of other risk factors for fracture. This patient's BMD is in the range that pharmacologic therapy is usually not required. FOLLOWUP: Approximately 2 years. FRAX GENERAL INFORMATION: The fracture risk assessment tool for FRAX was developed by the WHO to help the clinician make treatment decisions in postmenopausal women and men aged 50-year-old or who have low bone mass. Current recommendations for pharmacologic treatment using the FRAX assessment is osteopenia with greater than or equal to 20% for a major osteoporotic fracture, and greater than or equal to 3% for an estimated fracture of the hip. Please refer also to the webpage: http://www.shef.ac.uk/FRAX/. WHO DIAGNOSTIC CRITERIA: (Applicable for ??postmenopausal women and men age 50 and older.) Normal: ?T-score at or above -1 SD Osteopenia: ?T-score between -1 and -2.5 SD Osteoporosis: ?T-score at or below -2.5 SD Established (Severe) Osteoporosis : T-score at or below -2.5 SD plus ?? fragility fracture Narrative 09/03/2022 10:15 AM EST DUAL-ENERGY X-RAY ABSORPTIOMETRY (DXA) SCAN: ?? DXA MODEL: EdgeConneX A in fast scan mode RISK FACTORS: The patient reports parent with a hip fracture. TREATMENT: The patient reports none. LIMITATIONS: Degenerative changes appear to be present in the lumbar spine which may cause an artifactual increase in BMD. RESULTS: Lumbar Spine L1-L4: 1.139 g/cm2, T-score 0.8, Z-score 2.0 Right femoral Neck: 0.663 g/cm2, ??T- score -1.7, Z-score -0.6 Right Total Hip: 0.882 g/cm2, ??T-score -0.5, Z-score 0.3 FRAX 10-year Fracture Risk: Major osteoporotic fracture 14% and hip fracture 0.6% Yas Alvarez MD IMG DEXA IMAGING Final Result * MAMMOGRAM SCREENING TOMOSYNTHESIS, BILATERAL FC (09/02/2022 3:23 PM EST) Anatomical Region Laterality Modality BREAST Bilateral Mammography Impressions 09/09/2022 3:42 PM EST : No mammographic evidence of malignancy BI-RADS: 1 - Negative (overall) RECOMMENDATION: ?- Routine Screening Mammogram. A result letter has been sent to the patient. Narrative 09/09/2022 3:42 PM EST EXAMINATION: SCREENING MAMMOGRAM HISTORY: Screening, bilateral implants 2006. TECHNIQUE: Standard Bilateral 2D digital mammography and tomosynthesis were obtained and interpreted with CAD COMPARISON: Comparison is made to prior exams dated back to 2007 BREAST COMPOSITION: The breasts are almost entirely fatty. FINDINGS: There are no suspicious masses, calcifications or areas of unexplained architectural distortion. ??Implants are unremarkable. Yas Alvarez MD IMG MAMMO ORDERABLES Final Res ult from Last 3 Months or Most Recently Relevant to Health Maintenance Insurance [employer] FEE FOR SERVICE PPO Care Teams Librarian Special Library Relationship Specialty Start Date End Date Yas Alvarez MD [address] [place] [address] PCP - General Internal Medicine 08/07/22
--- NOTE | 2024-10-20 09:03 | A.OFFVIS_ITS ---
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 *See Comments*: Details: Start time: 9am, End time: 10.05am ?I spent 60 minutes speaking with the patient on the phone plus an additional 5 minutes reviewing and updating records for a total of 65 minutes HPI Comments Details: Previous weight loss efforts: Wegovy for 3 months (20lbs but with significant v omiting), Zepbound (persistent vomiting) Wakes up: 6.30am, Sleeps: 10pm Breakfast: 9am (yogurt with granola) Lunch: 12.30pm (tacos, or sandwich, WW meal with [place] Islander muffin) Dinner: 6pm (steak with potatoes, Lasagna, pasta and meatballs) Snacks: orange at 10am, 4pm (candy), 8pm (ice cream, cookies) Exercise: None, has gym membership Beverages: Coffee: none, tea: 1/wk, soda: regular Sprite or Pepsi 8oz/wk, juice: (Louisa juice/wk), ETOH: 1-2/month PFSH Medical History (Updated 10/20/24 @ 10:01 by Tyrell Lr MD) Hyperlipidemia Lower extremity edema Hypertension GERD (gastroesophageal reflux disease) DJD (degenerative joint disease) Pre-diabetes Pitting edema Obesity Hx of degenerative disc disease Surgical History (Updated 10/19/24 @ 08:42 by GERARDO Casas) S/P rotator cuff repair Hx of colonoscopy Hx of breast augmentation Hx of LASIK History of left oophorectomy Hx of tubal ligation Hx of cholecystectomy Hx of umbilical hernia repair Family History (Updated 10/19/24 @ 09:17 by GERARDO Casas) Mother Diabetes Congestive heart failure Father Colon polyp Tachycardia Paternal Grandmother Colon cancer Colostomy care Tachycardia Physical Exam Vital Signs: BMI result Body Mass Index 35.2 Quality Reporting (2019) Adult ([facility] 138//69) Body Mass Index: 35.2 Telehealth Telehealth Telehealth Platform: Telephone Location of provider rendering services: practice address Location of patient: address on file Patient Identification confirmed using: Name, : Yes Telehealth method: voice only Patient verbally consented to treatment: Yes Patient verbally consented to billing insurance company: Yes Patient informed of any privacy concerns related to visit: Yes Minutes spent on Phone/Video with Pt.: 65 Assessment & Plan Assessment & Plan (1) Obesity: Code(s): E66.9 - Obesity, unspecified Category: Medical Qualifiers: Obesity type: due to excess calories Obesity classification: adult class 1 (BMI 30 - 34.9) Serious obesity comorbidity presence: with serious comorbidity Body mass index: BMI 34.0-34.9 Qualified Code(s): E66.811 - Obesity, class 1; E66.09 - Other obesity due to excess calories; Z68.34 - Body mass index [BMI] 34.0-34.9, adult Plan: 1.? Plan for lap sleeve gastrectomy. If diaphragmatic or ventral hernias are present at time of surgery, these will be repaired laparoscopically as well. I emphasized the importance of close follow-up, adherence to instructions and good communication. The surgery does not replace the need to change your lifestlyle which is the cause of the obesity problem. The surgery provides the motivation to try again to change your lifestyle, it reduces the appetite and make the transition to a better lifestyle easier and doubles the amount of weight you would lose compared to doing the lifestyle change without the surgery. You will need to be on a liquid diet with protein shakes for 2 weeks before surgery to maximize weight loss and boost your nutritional status to recover better from surgery and also for the first two weeks after surgery to let the stomach heal before we introduce other foods. After the first 2 weeks we will introduce protein bars and soft foods like scrambled eggs, cottage cheese and yogurt and after the 6th week will introduce meat, fish and cooked vegetables in small amounts. Over time you should be able to eat everything in small amounts. Side effects like nausea, vomiting, heartburn or abdominal pain are not common in the practice unless you are not following in the practice. This operation requires lifetime commitment to following in our practice and communication with me. You will much less weight and experience side effects if you don?t communicate or not following in the practice. Complications are rare and in our practice is about 1/10 of the national average. However, you can develop bleeding that may require transfusion (hasn?t happened for year in the practice), you may from complications (we did not have any deaths in the practice) and infections. Infections are usually a result of breakdown in communication or not understanding or following directions correctly. They are difficult to treat, they can happen during the first 6 weeks, they may require to be in the hospital for weeks or even months, not being able to eat by mouth and you may have drains and surgeries to try and correct the issue. Other risks and complications include possible conversion to an open procedure, leaks, small bowel obstruction, blood clots, cardiac, or pulmonary complications, as intermodal owner operator truck driver complications such as ulcers, insufficient weight loss and vitamin deficiencies. 2. You will receive a link of our software pasha to generate an individualized nutritional and exercise plan specific for you. Please send me a screenshot of the plans you will generate Meal to include lean meat (beef, fish, pork, turkey, chicken), or vietnamese yogurt, or egg whites, or beans with a salad with olive oil and fruits (berries, pears, apples, kiwi). Avoid salt, breads, potatoes, rice, pasta, desserts. ?3. If you choose shakes, each shake would be drunk slowly, like coffee in a period of 2 hours. ?4. If you choose bars, cut each bar in 4 pieces and eat each piece in 30min ?to make each bar last 2 hours. ?5. I emphasized the importance of measuring accurately the food portion and measure it when serving the food in plate ?6. The meal portions include a specific number of forks of meat and salad. You always eat the meat portion but you can replace up to half of salad/vegetables portion with rice, potatoes or pasta, or a fruit ?if you like. The less you do it the better weight loss will be. ?7. One full-size fork is what it can be scooped on the fork without falling aside and not what can be bit with the fork. Use regular forks like those you find in a typical restaurant. ?8.? Please use your body composition scale we discussed and send me weight measurements as soon as possible and then once a week. Always include your diet and exercise plan. 9. The best exercise choice would be to use your treadmill at home or at the Gym that can track calories. You can create and exercise plan with the [facility] [employer] pasha. ?10. Goal is to lose at least 1.5-2lbs per week ?11. Goal to lose 10% of your weight before surgery, which is about 21lbs. Ultimate weight goal: 190lbs before surgery 12. Please follow the diet plan exactly without any change. If you don't like something about the plan or you feel hungry you need to communicate with me so I can help you revise the plan. You should not change the plan yourself. 13. To be scheduled for EGD due to the history of GERD. The possibility of biopsies was discussed. Patient needs to avoid use of NSAIDs and aspirin for 1 week prior to EGD. You must be on liquids only the day before your endoscopy. Risks of perforation and bleeding was discussed with the patient. This will be an outpatient procedure with IV sedation. Orders: Orders Insulin Today E66.9 - Obesity, unspecified, E78.5 - Hyperlipidemia, unspecified, I10 - Essential (primary) hypertension, R73.03 - Prediabetes, Z68.34 - Body mass index [BMI] 34.0-34.9, adult H Pylori Breath Test Today E66.9 - Obesity, unspecified, E78.5 - Hyperlipidemia, unspecified, I10 - Essential (primary) hypertension, R73.03 - Prediabetes, Z68.34 - Body mass index [BMI] 34.0-34.9, adult Complete Blood Count Auto Diff Today E66.9 - Obesity, unspecified, E78.5 - Hyperlipidemia, unspecified, I10 - Essential (primary) hypertension, R73.03 - Prediabetes, Z68.34 - Body mass index [BMI] 34.0-34.9, adult Lipid Panel Today E66.9 - Obesity, unspecified, E78.5 - Hyperlipidemia, unspecified, I10 - Essential (primary) hypertension, R73.03 - Prediabetes, Z68.34 - Body mass index [BMI] 34.0-34.9, adult Comprehensive Met. Panel Today E66.9 - Obesity, unspecified, E78.5 - Hyperlipidemia, unspecified, I10 - Essential (primary) hypertension, R73.03 - Prediabetes, Z68.34 - Body mass index [BMI] 34.0-34.9, adult Vitamin B12 and Folate Today E66.9 - Obesity, unspecified, E78.5 - Hyperlipidemia, unspecified, I10 - Essential (primary) hypertension, R73.03 - Prediabetes, Z68.34 - Body mass index [BMI] 34.0-34.9, adult Vitamin B1 Today E66.9 - Obesity, unspecified, E78.5 - Hyperlipidemia, unspecified, I10 - Essential (primary) hypertension, R73.03 - Prediabetes, Z68.34 - Body mass index [BMI] 34.0-34.9, adult Vitamin A Today E66.9 - Obesity, unspecified, E78.5 - Hyperlipidemia, unspecified, I10 - Essential (primary) hypertension, R73.03 - Prediabetes, Z68.34 - Body mass index [BMI] 34.0-34.9, adult Ferritin Today E66.9 - Obesity, unspecified, E78.5 - Hyperlipidemia, unspecified, I10 - Essential (primary) hypertension, R73.03 - Prediabetes, Z68.34 - Body mass index [BMI] 34.0-34.9, adult US abdomen comp w elastography Today E66.9 - Obesity, unspecified, E78.5 - Hyperlipidemia, unspecified, I10 - Essential (primary) hypertension, R73.03 - Prediabetes, Z68.34 - Body mass index [BMI] 34.0-34.9, adult Hemoglobin A1c Today E66.9 - Obesity, unspecified, E78.5 - Hyperlipidemia, unspecified, I10 - Essential (primary) hypertension, R73.03 - Prediabetes, Z68.34 - Body mass index [BMI] 34.0-34.9, adult IRON PROFILE Today E66.9 - Obesity, unspecified, E78.5 - Hyperlipidemia, unspecified, I10 - Essential (primary) hypertension, R73.03 - Prediabetes, Z68.34 - Body mass index [BMI] 34.0-34.9, adult Zinc Today E66.9 - Obesity, unspecified, E78.5 - Hyperlipidemia, unspecified, I10 - Essential (primary) hypertension, R73.03 - Prediabetes, Z68.34 - Body mass index [BMI] 34.0-34.9, adult C Reactive Protein Today E66.9 - Obesity, unspecified, E78.5 - Hyperlipidemia, unspecified, I10 - Essential (primary) hypertension, R73.03 - Prediabetes, Z68.34 - Body mass index [BMI] 34.0-34.9, adult TSH reflex Free T4 Today E66.9 - Obesity, unspecified, E78.5 - Hyperlipidemia, unspecified, I10 - Essential (primary) hypertension, R73.03 - Prediabetes, Z68.3 4 - Body mass index [BMI] 34.0-34.9, adult Vitamin D 25-OH Total Today E66.9 - Obesity, unspecified, E78.5 - Hyperlipidemia, unspecified, I10 - Essential (primary) hypertension, R73.03 - Prediabetes, Z68.34 - Body mass index [BMI] 34.0-34.9, adult XR chest 2V Today E66.9 - Obesity, unspecified, E78.5 - Hyperlipidemia, unspecified, I10 - Essential (primary) hypertension, R73.03 - Prediabetes, Z68.34 - Body mass index [BMI] 34.0-34.9, adult ECG 12 lead EKG Today E66.9 - Obesity, unspecified, E78.5 - Hyperlipidemia, unspecified, I10 - Essential (primary) hypertension, R73.03 - Prediabetes, Z68.34 - Body mass index [BMI] 34.0-34.9, adult FL upper GI w air Today E66.9 - Obesity, unspecified, E78.5 - Hyperlipidemia, unspecified, I10 - Essential (primary) hypertension, R73.03 - Prediabetes, Z68.34 - Body mass index [BMI] 34.0-34.9, adult Referrals Behavioral Health Referral E66.9 - Obesity, unspecified, E78.5 - Hyperlipidemia, unspecified, I10 - Essential (primary) hypertension, R73.03 - Prediabetes, Z68.34 - Body mass index [BMI] 34.0-34.9, adult Nutrition/Dietitian Referral E66.9 - Obesity, unspecified, E78.5 - Hyperlipidemia, unspecified, I10 - Essential (primary) hypertension, R73.03 - Prediabetes, Z68.34 - Body mass index [BMI] 34.0-34.9, adult
[2024-10-20 09:20] VITALS: BMI 35.2
== END 2024-10-20 10:06 | disposition home or self-care (01) ==
PROVIDERS: Visit Provider Surgery
DX: E66.811 Obesity, class 1 (principal); E66.09 Other obesity due to excess calories; Z68.34 Body mass index [BMI] 34.0-34.9, adult
CPT/HCPCS: 99205

== ENCOUNTER → 2024-10-27 10:33 | Outpatient (BNV) | payer BC, SELFPAY | PROVIDERS: Visit Provider Radiology Diagnostic Radiology | DX: K76.0 Fatty (change of) liver, not elsewhere classified (principal) | CPT/HCPCS: 76700; 76981 ==

== ENCOUNTER 2024-10-27 11:29 | Outpatient (REF) | payer BC, SELFPAY ==
--- NOTE | ~2024-10-27 | US_ITS ---
EXAMINATION: US ABDOMEN COMPLETE WITH LIVER ELASTOGRAPHY HISTORY: E66.9 - Obesity, unspecified TECHNIQUE: Real-time grayscale ultrasound imaging of the abdomen was performed and images were reviewed. COMPARISON: There are no prior studies for comparison. FINDINGS: Liver: The right lobe of the liver measures 16.2 cm in size. The left lobe of the liver measures 12.1 cm in size. The liver demonstrates increased echotexture, consistent with steatosis. No focal mass or intrahepatic biliary ductal dilatation is identified. There is normal hepatopedal flow in the portal vein. Ultrasound elastography of the liver was performed with 10 separate measurements of the liver parenchyma with the patient in the supine position. Measurements were obtained approximately 2 cm below Dorian's capsule and perpendicular to the capsule. Images are of satisfactory quality. The median shear wave velocity is 1.63 m/s. The interquartile range/median (IQR/median) is 0.05. Gallbladder and biliary tree: The gallbladder is usually absent. The common bile duct is normal in caliber measuring 5 mm. Kidneys: The right kidney measures 11.8 cm in length. The left kidney measures 12.2 cm in length. The kidneys are unremarkable, without evidence of masses, hydronephrosis, or calculi. Pancreas: The pancreatic head, neck, and body are unremarkable. The pancreatic tail is obscured by bowel gas. Spleen: The spleen is normal in size and contour, measuring 10.4 cm in length. Abdominal aorta and inferior vena cava: The visualized portions of the abdominal aorta and inferior vena cava are normal in caliber. There is no free fluid in the abdomen. US/US abdomen comp w elastography IMPRESSION: Hepatic steatosis. The median shear wave velocity in the liver is 1.63 m/s, corresponding to a median liver stiffness of 8.22 kPa. The IQR/median value is 0.05. This is indicative of a quality data set. Findings are indicative of a low elastography value which rules out advanced chronic liver disease in asymptomatic patients. REFERENCE: Society of Radiologists in Ultrasound Liver Stiffness Thresholds (2020): LIVER STIFFNESS THRESHOLDS: *Shear wave velocity less than 1.3 m/s (Liver Stiffness equal or less than 5 kPa): High probability of being normal. *Shear wave velocity less than 1.7 m/s (Liver Stiffness less than 9 kPa): In the absence of other known clinical signs, rules out compensated advanced chronic liver disease. *Shear wave velocity between 1.7-2.1 m/s (Liver Stiffness 9-13 kPa): Suggestive of compensated advanced chronic liver disease but need further test for confirmation. *Shear wave velocity between 2.1-2.4 m/s (Liver Stiffness 13-17 kPa): Rules in compensated advanced chronic liver disease. *Shear wave velocity greater than 2.4 m/s (Liver Stiffness over 17 kPa): Suggestive of clinically significant portal hypertension. QUALITY OF DATA SET: *IQR/Median value equal or less than 0.15 implies a quality data set. *IQR/Median value over 0.15 implies a poor quality data set. SIGNIFICANT CHANGE FROM PRIOR EXAM: Significant change if liver stiffness measurement is 10% or greater from prior exam. OTHER CONSIDERATIONS: The stage of liver fibrosis may be overestimated in the setting of acute hepatitis, liver inflammation, elevated liver function tests, hepatic vascular congestion, obstructive cholestasis, non-fasting state, and infiltrative diseases such as amyloidosis and lymphoma. In some patients with NAFLD, the liver stiffness thresholds for compensated advanced chronic liver disease may be lower. In causes other than viral hepatitis and NAFLD, liver stiffness thresholds are not well established. Electronically signed by: Keron Skinner MD 10/27/2024 12:12 PM EDT
--- NOTE | ~2024-10-27 | XR_ITS ---
CLINICAL HISTORY: E66.9 - Obesity, unspecified 2 view chest x-ray Comparison: None Findings: No consolidation or effusion. Normal size heart. No acute fracture. IMPRESSION: 1. No acute findings. This document has been electronically signed by: Naseem Ojeda MD on 10/28/2024 09:04:03
[2024-10-27 10:31] LABS: MANUAL DIFF FLAG NO
[2024-10-27 10:46] LABS: Basophils Absolute Auto 0.1 X10*3/uL (0.0-0.2); Basophils Percent Auto 1.1 % (0-2); Eosinophils Absolute Auto 0.1 X10*3/uL (0.0-0.4); Eosinophils Percent Auto 1.2 % (0-4); Hematocrit 40.8 % (37.0-47.0); Hemoglobin 13.8 g/dl (12.0-16.0); Imm Gran Abs Auto 0.01 X10*3/uL (0.00-0.03); Imm Gran Pct Auto 0.2 % (0.0-0.4); Lymphocytes Percent Auto 36.3 % (20-40); Mean Corpuscular HGB Conc 33.8 g/dl (31.0-35.0); Mean Corpuscular Hemoglobin 28.7 pg (27.0-33.0); Mean Corpuscular Volume 84.8 fL (80.0-98.0); Mean Platelet Volume 10.3 fL (9.4-12.3); Monocytes Absolute Auto 0.5 X10*3/uL (0.1-1.2); Monocytes Percent Auto 8.2 % (2-11); Platelet Count 238 X10*3/uL (160-400); Red Blood Count 4.81 X10*6/uL (4.20-5.50); Red Cell Distribution Width 12.5 % (11.0-16.0); White Blood Count 5.6 X10*3/uL (4.8-10.8)
[2024-10-27 10:55] LABS: Estimated Average Glucose 111 mg/dL; Hemoglobin A1C 136.8674 umol/L; Hemoglobin A1c % 5.5 % (<6.0); Total Hemoglobin (HGBA1C) 3706.0479 umol/L
[2024-10-27 11:27] LABS: Alanine Aminotransferase 51 U/L (0-31); Albumin Level 4.7 g/dL (3.5-5.0); Alkaline Phosphatase 59 U/L (39-117); Anion Gap 11 (12-20); Aspartate Amino Transferase 40 U/L (5-31); Bilirubin Total 0.6 mg/dL (0.0-1.0); Blood Urea Nitrogen 16 mg/dL (9-16); C Reactive Protein 1.02 mg/dL (< or = 0.50); Calcium 10.1 mg/dL (8.4-10.2); Carbon Dioxide 28 mmol/L (22-29); Chloride 109 mmol/L (96-108); Cholesterol 242 mg/dL (<200); Estimated Glomerular Filt Rate > 60; Glucose Random 93 mg/dL (60-115); HDL Cholesterol 47 mg/dL (>40); Iron 63 mcg/dL (30-160); LDL Cholesterol Calculated 168 mg/dL (<100); Percent Iron Saturation 21 % (15-50); Potassium 4.2 mmol/L (3.3-5.1); Sodium 144 mmol/L (135-145); Total Iron Binding Capacity 298 mcg/dL (228-428); Total Protein 7.6 g/dL (6.5-8.0); Triglycerides 139 mg/dL (<150); Unsaturated Iron Binding 235 ug/dL
[2024-10-27 11:43] LABS: Ferritin 410 ng/mL (10-250); Vitamin D 25-OH Total 66.1 ng/mL (>30)
[2024-10-27 11:44] LABS: TSH reflex Free T4 2.42 uIU/mL (0.32-4.0)
[2024-10-27 11:51] LABS: Insulin 14 uU/mL (2-29)
[2024-10-27 11:53] LABS: Vitamin B12 253 pg/mL (200-900)
--- OUTSIDE RECORDS SUMMARY | 2024-10-27 12:33 | XMS_ITS | Encounter Summary ---
Author Organization [facility] Address [address] [facility] [address] [place] [address] Care Team Providers Care Client Relations Specialist Name Role Phone No Pcp, Per Patient Primary Care Provider Unajenniferi lable Reason for Visit * Reason Comments Med Refill Encounter Details Date Type Department Care Team (Late st Contact Info) Description 07/21/2024 Refill [facility] [address] [place] [address] Jade Jernigan MD [address] [place] [address] Androgenetic alopecia Social History Tobacco Use Types [...] Description 11/13/2024 4:00 PM EDT Office Visit [facility] [address] [place] [address] Jade Jernigan MD [address] [place] [address] documented as of this encounter Visit Diagnoses Diagnosis Androgenetic alopecia documented in this encounter Care Teams Client Relations Specialist Relationship Specialty Start Date End Date No Pcp, Per Patient [place] PCP - General Food Mixer Repairer 04/24/24 documented as of this encounter
--- OUTSIDE RECORDS SUMMARY | 2024-10-27 12:33 | XMS_ITS | Referral Summary ---
Author Organization [facility]: [facility] & [facility] Care Address [address] [place] [address] 101 [facility] 8 [place] [address] Care Team Providers Care Documentation Liaison Name Role Phone Generic, Provider Primary Care [...] of Treatment Not on file Care Teams Documentation Liaison Relationship Specialty Start Date End Date Generic, Provider [address] [address] PCP - General Generic/Test/No PCP 09/06/12
--- OUTSIDE RECORDS SUMMARY | 2024-10-27 12:33 | XMS_ITS | Clinical Summary ---
Author Organization [facility] [employer] [facility] Address [address] [facility] [employer] [place] [address] Care Team Providers Care Fudge Candy Maker Name Role Phone Unavailable Primary Care Provider [...] Adults 18 yrs or above (or HM Modifier)([facility]) 1966 Hepatitis C Virus Infection in Adolescents and Adults: Screening (or Modifier) ([facility]) 02/04/1984 [facility] Screening Reminder: Kaylene barahona for all adults ([facility]) 02/04/1984 Tobacco Smoking Cessation: i n Adults excluding Women: Behavioral and Pharmacotherapy Interventions ([facility]) 02/04/1984 Cervical Cancer Screenin 1-65 yrs of age (or Modifier) 1987 Cervical Cancer Screening: P ap every 3 yrs pts age 21-65 1987 Cervical Cancer: Pap Screeni ng with Modifier timing ([facility]) 1987 Cervical Cancer: hrHPV alone or with cotesting Pap for Pts 30-65yrs screening every 5yrs ([facility]) 1987 Colorectal Cancer Screening 45 -75 Yrs (or HM Modifier) 2011 Colorectal Cancer: FLEXIBLE SIGMOIDOSCOPY Screening every 5 yrs 2011 Colorectal Cancer: Fecal Imm unochemical Test (FIT) Annually [facility] 2011 Colorectal Cancer: High-sens itivity gFOBT Screening Annually [facility] 2011 Colorectal Cancer: Stool Col oguard Screening every 3 yrs 2011 Colorectal Cancer:CT Colonog owen Screening every 5 yrs 2011 Lipid Screening: Every 5 yrs for Women aged 45+ (or HM Modifier) ([facility]) 02/04/2012 Breast Cancer: Screening Kaylene ually age 50-74 yrs (or HM Modifier)([facility]) 02/04/2016 Pneumococcal Vaccination Scr eening: Patients 50+ yrs of age ([facility]) (1 of 1 - PCV) 02/04/2016 Zoster/Shingles Vaccine Seri es Screening: Adults aged 18+ yrs (or HM Modifiers)([facility]) (2 of 2) 06/13/2023 04/18/2023 COVID-19 Vaccine Screening: Initial Series and Booster Status ([facility]) ( - 2023- season) 2024 Flu Vaccination: Yearly for ages 18mos through 64 years (or Modifier)([facility]) 02/16/2025 DTaP/Tdap/Td Vaccines ([facility]) (2 - Td or Tdap) 04/17/2019 [employer] Devices Not on file Insurance [facility]
--- OUTSIDE RECORDS SUMMARY | 2024-10-27 12:33 | XMS_ITS | Encounter Summary ---
Author Organization [facility] Address [address] [place] [address] Phone Care Team Providers Care Dental Equipment Mechanic Name Role Phone Yas Alvarez MD Primary Care Provider Yas Alvarez MD Unavailable [phone] Kike Garcia MD Unavailable [phone] Encounter Details Date Type Department Care Team (Late st Contact Info) Description 10/18/2024 2:30 PM EDT Follow-Up [facility] [address] [address] Claire John, [facility] 873 [facility] 3 [place] [address] [email or web address] Class 1 obesity without serious comorbidity with [...] this encounter Progress Notes * Claire John, [place] - 10/18/2024 2:30 PM EDT HPI: Shikha [...] documented as of this encounter Care Teams Dental Equipment Mechanic Relationship Specialty Start Date End Date Yas Alvarez MD [address] [place] [address] [email or web address] PCP - General Internal Medicine 02/07/19 Yas Alvarez MD [address] [place] [address] [email or web address] Insurance Assigned Provider 10/23/23 10/22/24 Kike Garcia MD [address] [place] [address] [email or web address] Insurance Assigned Provider 10/22/24 documented as of this encounter Additional Source Comments The information contained in this document represents components of the legal health record. It is not the complete legal health record.[facility]
--- OUTSIDE RECORDS SUMMARY | 2024-10-27 12:33 | XMS_ITS | Clinical Summary ---
Author Organization [facility]: [facility] & [facility] Care Address [address] [place] [address] 101 [facility] 8 [place] [address] Care Team Providers Care Drawing In Machine Tender Helper Name Role Phone Generic, Provider Primary Care [...] age to complete this topic Care Teams Drawing In Machine Tender Helper Relationship Specialty Start Date End Date Generic, Provider [address] [address] PCP - General Generic/Test/No PCP 09/06/12
--- OUTSIDE RECORDS SUMMARY | 2024-10-27 12:33 | XMS_ITS | Encounter Summary ---
Author Organization [facility] Address [address] [place] [address] [place] [address] Phone Care Team Providers Care Cyber Security Specialist Name Role Phone Yas Alvarez MD Primary Care Provider [phone] Kike Garcia MD Unavailable [phone] Encounter Details Date Type Department Care Team (Late st Contact Info) Description 10/26/2024 Orders Only [facility] [address] [address] Provider, MD Bud [address] [place] [id number] Social History Tobacco Use Types Packs/Day Years [...] AM EDT documented as of this encounter Plan of Treatment Not on file documented as of this encounter Procedures Procedure Name Priority Date/Time Associated Diagnosis Comments OUTSIDE LAB Routine 10/25/2024 11:21 AM EDT OUTSIDE LAB Routine 07/06/2024 9:03 AM EST documented in this encounter Results * Outside Lab (10/25/2024 11:21 AM EDT) Historical Provider LAB BLOOD ORDERAB LES * Outside Lab (07/06/2024 9:03 AM EST) Historical Provider LAB BLOOD ORDERAB LES documented in this encounter Visit Diagnoses Not on filedocumented in this encounter Additional Health Concerns Assessment Noted Time PHQ-9 Depression Total Score: 5 10/19/19 2:44 PM EDT PHQ-2 Depression Total Score: 2 10/19/19 2:44 PM EDT documented as of this encounter Care Teams Cyber Security Specialist Relationship Specialty Start Date End Date Yas Alvarez MD [address] [place] [phone] [email or web address] PCP - General Internal Medicine 02/07/19 Kike Garcia MD [address] [place] [address] [email or web address] Insurance Assigned Provider 10/22/24 documented as of this encounter Additional Source Comments The information contained in this document represents components of the legal health record. It is not the complete legal health record.[facility]
--- OUTSIDE RECORDS SUMMARY | 2024-10-27 12:33 | XMS_ITS | Encounter Summary ---
Author Organization [facility]: [facility] & [facility] Care Address [address] [facility] [address] [place] [address] Care Team Providers Care Flavorings Compounder Name Role Phone Generic, Provider Primary Care Provider [phone] Encounter Details Date Type Department Care Team (Late st Contact Info) Description 12/24/2011 [facility] [address] [address] [address] Horner Social History Tobacco Use Types [...] on filedocumented in this encounter Care Teams Flavorings Compounder Relationship Specialty Start Date End Date Generic, Provider [address] [address] PCP - General Generic/Test/No PCP 09/06/12 documented as of this encounter
--- OUTSIDE RECORDS SUMMARY | 2024-10-27 12:33 | XMS_ITS | Encounter Summary ---
Author Organization [facility]: [facility] & [facility] Care Address [address] [facility] [address] [place] [address] Care Team Providers Care Carbon Cutter Name Role Phone Generic, Provider Primary Care Provider [phone] Encounter Details Date Type Department Care Team (Late st Contact Info) Description 03/04/2010 [facility] at [address] [address] MRI of the Lumbar Spine-02/28/10 Social History [...] on filedocumented in this encounter Care Teams Carbon Cutter Relationship Specialty Start Date End Date Generic, Provider [address] [address] PCP - General Generic/Test/No PCP 09/06/12 documented as of this encounter
--- OUTSIDE RECORDS SUMMARY | 2024-10-27 12:33 | XMS_ITS | Clinical Summary ---
Author Organization [facility] Address [address] [place] [address] Phone Care Team Providers Care Analysis Manager Name Role Phone Yas Alvarez MD Primary Care Provider Kike Garcia MD Unavailable [phone] Allergies Active Allergy Reactions Criticality Noted Date [...] procedure Will fax note to: Dr. Lucia [phone]. Will send labs with the note Hyperlipidemia 08/03/2023 Assessment & Plan (10/19/2024 8:25 AM EDT): Recheck lipid panel Low fat diet, weight loss Grief reaction 01/01/2023 Assessment & Plan (01/01/2023 1:54 PM EDT): Low mood due to grief I recommend she speak with a therapist Go to [employer] to find someone, she would prefer to [...] Encounters Date Type Department Care Team Description 10/26/2024 Orders Only [address] [address] Provider, MD Bud 10/18/2024 2:30 PM EDT Follow-Up [address] [address] Claire John, HYPERBARIC WELDER DIVER Class 1 obesity without serious comorbidity with body mass index (BMI) of 32.0 to 32.9 in adult, unspecified obesity type (Primary Dx); Leg swelling; Vitamin D deficiency, unspecified; Iron deficiency; Prediabetes; Hyperlipidemia, unspecified hyperlipidemia type 08/22/[address] [place] [address] Yas Alvarez MD Medication Refill from Last [...] Health Maintenance Due Date Last Done Comments AYLEEN 2011 FIT TEST 2011 FOBT 2011 SIGMOIDOSCOPY 2011 VIRTUAL COLONOSCOPY 2011 PNEUMOCOCCAL VACCINES (50+ years) (1 of 1 - PCV) 02/04/2016 INFLUENZA VACCINE (#1) 2024 COVID-19 VACCINE (4 - season) 2024 07/15/2021, 09/28/2020, 08/31/2020 MAMMOGRAM 09/02/2024 [...] OUTSIDE LAB Routine 10/25/2024 11:21 AM EDT COMPREHENSIVE METABOLIC PANEL Routine 01/17/2024 5:12 PM EDT LIPID PANEL Routine 08/12/2023 11:16 AM EST HM COLONOSCOPY FOR RESULT ENTRY ONLY Routine 10/23/2022 THINPREP PAP & HPV Routine 07/27/2022 7: 10 PM EST HEPATITIS C ANTIBODY, QUALITATIVE Routine 07/27/2022 7:08 PM EST from Last 3 Months or Most Recently Relevant to Health Maintenance Results * Outside Lab (10/25/2024 11:21 AM EDT) Historical Provider LAB BLOOD ORDERAB LES * Comprehensive metabolic panel (01/17/2024 5:12 PM EDT) Sodium 146 135 - 146 mEq/L [facility] Potassium 4.2 3.5 - 5.3 mEq/L [facility] Chloride 107 98 - 107 mEq/L [facility] CO2 30 20 - 31 mEq/L [facility] Anion Gap 9 4 - 14 [facility] Glucose 84 70 - 99 mg/dL [facility] BUN 13 6 - 20 mg/dL [facility] Creatinine 0.8 0.6 - 1.1 mg/dL [facility] GFR 77 >60 mL/min/1.7 3m^2 [facility] Calcium 10.1 8.4 - 10.2 mg/dL [facility] Corrected Calcium 9.6 8.4 - 10.2 mg/dL [facility] Protein, Total 6.8 6.2 - 8.2 g/dL [facility] Alkaline Phosphatase 51 0 - 130 U/L [facility] Albumin 4.6 3.4 - 5.2 g/dL [facility] ALT (SGPT) 16 0 - 40 U/L [facility] AST (SGOT) 14 0 - 33 U/L [facility] Bilirubin, Total 0.5 0.3 - 1.2 mg/dL [facility] 01/17/2024 5:12 PM EDT 01/17/2024 5:12 PM EDT Narrative Resulting Agency Comment No Claire John HYPERBARIC WELDER DIVER LAB BLOOD ORDERABLES Performing Organization Address City/[facility]/ZIP Co de Phone Number [facility] [address], Located [facility] [address] * (ABNORMAL) Lipid panel (08/12/2023 11:16 AM EST) Cholesterol 228(H) <200 mg/dL [facility] Triglycerides 178(H) <150 mg/dL [facility] Cholesterol, HDL 51 >40 mg/dL [facility] LDL Cholesterol, Calculated 141(H) <129 mg/dL [facility] Cholesterol/HDL Ratio 4.47(H) <4.43 [facility] 08/12/2023 11:1 6 AM EST 08/12/2023 11:16 AM EST Narrative Resulting Agency Comment No Yas Alvarez MD LAB BLOOD ORDERABLES Performing Organization Address City/[facility]/ZIP Co de Phone Number [facility] [place] [facility] [address] [facility] [address] * HM COLONOSCOPY FOR RESULT ENTRY ONLY (10/23/2022) Historical Provider [facility] TONEY E * ThinPrep Pap & HPV (07/27/2022 7:10 PM EST) Clinical Information: Routine exam [facility] LMP: 0 [facility] Prev. PAP: NONE GIVEN [facility] Prev. BX: NONE GIVEN [facility] Source: Cervix [facility] Statement of Adequacy: Satisfactory for evaluation. Endocervical/camara sformation zone component present. [facility] Interpretation/ Result: Negative for intraepithelial lesion or malignancy. [facility] Comment: This Pap test has been evaluated with computer assisted technology. [facility] Cytotechnologis t: SXA, CT(ASCP) CT screening location: [address] [facility] Comment SEE NOTE [facility] Comment: EXPLANATORY NOTE: The [...] HPV MRNA E6/E7 Not Detected Not Detected [facility] Comment: Methodology: Ornamental Metal Erector Apprentice-Mediated Amplification This assay detects E6/E7 viral messenger RNA (mRNA) from 14 high-risk HPV types (16,18,31,33,35,39,45,51,52,56,58,59,66,68). Cervical sources are required for HPV testing. If a vaginal source from a patient who has had a total hysterectomy with removal of cervix was submitted, please contact the testing laboratory for alternative testing options. For additional information, please refer to http://education.[facility]/faq/SBJ204n6 (This link if provided for information/ educational purposes only.) 07/27/2022 7:10 PM EST 07/27/2022 7:10 PM EST Narrative [facility] - 07/31/2022 12:34 PM EST Testing performed at: [facility], [address] [place] [address] ([address], [phone], Queen'S Counsel: ANTON TYLER MD Resulting Agency Comment No Yas Alvarez MD LAB BLOOD ORDERABLES Performing Organization Address City/[facility]/ZIP Co de Phone Number [facility] [address] [place] [address], [facility] * Hepatitis C antibody, qualitative (07/27/2022 7:08 PM EST) HepC AB Non Reactive Non Reactive;E quivocal;R eactive [facility] 07/27/2022 7:08 PM EST 07/27/2022 7:08 PM EST Yas Alvarez MD LAB BLOOD ORDERABLES [place] [phone] from Last 3 Months or Most Recently Relevant to Health Maintenance Care Teams Analysis Manager Relationship Specialty Start Date End Date Yas Alvarez MD [address] [place] [phone] [email or web address] PCP - General Internal Medicine 02/07/19 Kike Garcia MD [address] [place] [phone] [email or web address] Insurance Assigned Provider 10/22/24 Additional Source Comments The information contained in this document represents components of the legal health record. It is not the complete legal health record.[facility]
--- OUTSIDE RECORDS SUMMARY | 2024-10-27 12:33 | XMS_ITS | Clinical Summary ---
Author Organization [facility] Address [address] [place] [address] Care Team Providers Care Iron Erector Name Role Phone Yas Alvarez MD Primary Care Provider [phone] Allergies Active Allergy Reactions Criticality Noted Date [...] complete this topic Procedures * Due to [employer] law, this organization might not be sharing negative HIV tests. Procedure Name Priority Date/Time Associated Diagnosis Comments DXA BONE DENSITY STUDY AXIAL (LSSPINE, HIP) (DX: OSTEOPENIA) Routine 09/02/2022 3:30 PM EST MAMMOGRAM SCREENING TOMOSYNTHESIS, BILATERAL Routine 09/02/2022 3:23 PM EST Breast cancer screening by mammogram from Last 3 Months or Most Recently Relevant to Health Maintenance Results * Due to [place] [employer] law, this organization might not be sharing [...] X-RAY ABSORPTIOMETRY (DXA) SCAN: ?? DXA MODEL: [facility] A in fast scan mode RISK FACTORS: [...] BC FEE FOR SERVICE PPO Care Teams Iron Erector Relationship Specialty Start Date End Date Yas Alvarez MD [address] [place] [address] PCP - General Internal Medicine 08/07/22
--- OUTSIDE RECORDS SUMMARY | 2024-10-27 12:33 | XMS_ITS | Clinical Summary ---
Author Organization [facility] Address [address] [facility] [address] [place] [address] Care Team Providers Care Insurance Claim Approver Name Role Phone No Pcp, Per Patient [...] Description 11/13/2024 4:00 PM EDT Office Visit [facility] [address] [place] [address] Jade Jernigan MD [address] [place] [address] Health Maintenance Due Date Last Done Comments [...] age to complete this topic Care Teams Insurance Claim Approver Relationship Specialty Start Date End Date No Pcp, Per Patient LOGAN PCP - General Receiving Checker 04/24/24
[2024-10-30 23:43] LABS: Zinc 86 mcg/dL (60-130)
[2024-10-31 18:08] LABS: Vitamin A 87 mcg/dL (38-98)
[2024-11-07 15:18] LABS: Vitamin B1 6 nmol/L (8-30)
== END 2024-10-27 11:30 | disposition home or self-care (01) ==
LOC: HO.US 11:29
PROVIDERS: Visit Provider Surgery
DX: E66.9 Obesity, unspecified (principal); Z68.34 Body mass index [BMI] 34.0-34.9, adult; R73.03 Prediabetes; E78.5 Hyperlipidemia, unspecified; I10 Essential (primary) hypertension; K76.0 Fatty (change of) liver, not elsewhere classified
CPT/HCPCS: 36415; 71046; 76700; 76981; 80053; 80061; 82306; 82607; 82728; 82746; 83036; 83525; 83540; 84425; 84443; 84590; 84630; 85025; 86140

== ENCOUNTER 2024-10-27 11:34 | Day surgery (SDC) | payer BC, SELFPAY ==
--- NOTE | 2024-10-25 13:50 | HO.ANESPROP2 ---
HPI - Anesthesia Eval Consult details Narrative: 59yo F for Upper Endoscopy PMFSH Active Problems Active Problems: All Active Problems Hyperlipidemia (Acute) Lower extremity edema (Acute) Hypertension (Acute) GERD (gastroesophageal reflux disease) (Acute) DJD (degenerative joint disease) (Acute) Pre-diabetes (Acute) BMI 34.0-34.9,adult (Acute) Obesity (Acute) Past Medical History Medical History (Updated 10/20/24 @ 10:01 by Tyrell Lr MD) Hyperlipidemia Lower extremity edema Hypertension GERD (gastroesophageal reflux disease) DJD (degenerative joint disease) Pre-diabetes Pitting edema Obesity Hx of degenerative disc disease Family History Family History (Updated 10/19/24 @ 09:17 by GERARDO Casas) Mother Diabetes Congestive heart failure Father Colon polyp Tachycardia Paternal Grandmother Colon cancer Colostomy care Tachycardia Surgical History Surgical History (Updated 10/19/24 @ 08:42 by GERARDO Casas) S/P rotator cuff repair Hx of colonoscopy Hx of breast augmentation Hx of LASIK History of left oophorectomy Hx of tubal ligation Hx of cholecystectomy Hx of umbilical hernia repair Meds Allergies Allergy/AdvReac Type Severity Reaction Status Date / Time codeine Allergy Mild Unknown Verified 10/20/24 09:04 Home Medications ?Medication ?Instructions ?Recorded ?Confirmed ?Last Taken ?Type calcium carbonate (Tums) 200 mg PO BID 10/19/24 10/20/24 Unknown History diclofenac sodium 75 mg 75 mg PO BID 10/19/24 10/20/24 Unknown History tablet,delayed release ergocalciferol (vitamin D2) 1,250 1,250 mcg PO QWEEK 10/19/24 10/20/24 Unknown History mcg (50,000 unit) capsule finasteride 5 mg tablet 5 mg PO DAILY 10/19/24 10/20/24 Unknown History furosemide 20 mg tablet (Lasix) 20 mg PO Q OTHER DAY 10/19/24 10/20/24 Unknown History nutritional supplements ea PO 10/19/24 10/20/24 Unknown History Assessment and Plan Assessment Anesthesia Assessment: Chart Reviewed
--- OUTSIDE RECORDS SUMMARY | 2024-10-25 14:56 | XMS_ITS | Clinical Summary ---
Author Organization [facility] Address [address] [place] [id number] Phone Care Team Providers Care Wage Conciliator Name Role Phone Yas Alvarez MD Primary Care Provider [phone] Kike Garcia MD Unavailable [phone] Allergies Active Allergy Reactions Criticality Noted Date [...] procedure Will fax note to: Dr. Lucia [phone]. Will send labs with the note Hyperlipidemia 08/03/2023 Assessment & Plan (10/19/2024 8:25 AM EDT): Recheck lipid panel Low fat diet, weight loss Grief reaction 01/01/2023 Assessment & Plan (01/01/2023 1:54 PM EDT): Low mood due to grief I recommend she speak with a therapist Go to [facility] [employer] [facility] to find someone, she would prefer to [...] it authorized, then she will go to [facility] prescribed if we start ozempic F/u [...] Team Description 10/18/2024 2:30 PM EDT Follow-Up [address] [address] Claire John, DEVELOPMENT SCIENTIST Class 1 obesity without serious comorbidity with body mass index (BMI) of 32.0 to 32.9 in adult, unspecified obesity type (Primary Dx); Leg swelling; Vitamin D deficiency, unspecified; Iron deficiency; Prediabetes; Hyperlipidemia, unspecified hyperlipidemia type 08/22/[address] [address] Yas Alvarez MD Medication Refill from Last [...] EDT) Sodium 146 135 - 146 mEq/L [facility] Potassium 4.2 3.5 - 5.3 mEq/L [facility] Chloride 107 98 - 107 mEq/L [facility] CO2 30 20 - 31 mEq/L [facility] Anion Gap 9 4 - 14 [facility] Glucose 84 70 - 99 mg/dL [facility] BUN 13 6 - 20 mg/dL [facility] Creatinine 0.8 0.6 - 1.1 mg/dL [facility] GFR 77 >60 mL/min/1.7 3m^2 [facility] Calcium 10.1 8.4 - 10.2 mg/dL [facility] Corrected Calcium 9.6 8.4 - 10.2 mg/dL [facility] Protein, Total 6.8 6.2 - 8.2 g/dL [facility] Alkaline Phosphatase 51 0 - 130 U/L [facility] Albumin 4.6 3.4 - 5.2 g/dL [facility] ALT (SGPT) 16 0 - 40 U/L [facility] AST (SGOT) 14 0 - 33 U/L [facility] Bilirubin, Total 0.5 0.3 - 1.2 mg/dL [facility] 01/17/2024 5:12 PM EDT 01/17/2024 5:12 PM EDT Narrative Resulting Agency Comment No Claire John DEVELOPMENT SCIENTIST LAB BLOOD ORDERABLES [facility] [address] [place] [address], [facility] * (ABNORMAL) Lipid panel (08/12/2023 11:16 AM EST) Cholesterol 228(H) <200 mg/dL [facility] Triglycerides 178(H) <150 mg/dL [facility] Cholesterol, HDL 51 >40 mg/dL [facility] LDL Cholesterol, Calculated 141(H) <129 mg/dL [facility] Cholesterol/HDL Ratio 4.47(H) <4.43 [facility] 08/12/2023 11:1 6 AM EST 08/12/2023 11:16 AM EST Narrative Resulting Agency Comment No Yas Alvarez MD LAB BLOOD ORDERABLES [facility] [address] * COLONOSCOPY FOR RESULT ENTRY ONLY (10/23/2022) Historical Provider [facility] TONEY E * ThinPrep Pap & HPV (07/27/2022 7:10 PM EST) Clinical Information: Routine exam [facility] LMP: 0 [facility] Prev. PAP: NONE GIVEN [facility] Prev. BX: NONE GIVEN [facility] Source: Cervix [facility] Statement of Adequacy: Satisfactory for evaluation. Endocervical/camara sformation zone component present. [facility] Interpretation/ Result: Negative for intraepithelial lesion or malignancy. [facility] Comment: This Pap test has been evaluated with computer assisted technology. [facility] Cytotechnologis t: SXA, CT(ASCP) CT screening location: [address] LABORATORY Comment SEE NOTE [facility] Comment: EXPLANATORY NOTE: The Pap is [...] HPV MRNA E6/E7 Not Detected Not Detected [facility] Comment: Methodology: Legal Contracts Specialist-Mediated Amplification This assay detects E6/E7 viral messenger RNA (mRNA) from 14 high-risk HPV types (16,18,31,33,35,39,45,51,52,56,58,59,66,68). Cervical sources are required for HPV testing. If a vaginal source from a patient who has had a total hysterectomy with removal of cervix was submitted, please contact the testing laboratory for alternative testing options. For additional information, please refer to http://education.VIEO/faq/EBU185h7 (This link if provided for information/ educational purposes only.) 07/27/2022 7:10 PM EST 07/27/2022 7:10 PM EST Narrative [facility] - 07/31/2022 12:34 PM EST Testing performed at: [facility], [address] [place] [address] ([facility], [address], Food General Manager: ANTON TYLER MD Resulting Agency Comment No Yas Alvarez MD LAB BLOOD ORDERABLES Performing Organization Address [facility] Co de Phone Number [facility] [address] [address], [facility] * Hepatitis C antibody, qualitative (07/27/2022 7:08 PM EST) HepC AB Non Reactive Non Reactive;E quivocal;R eactive [facility] 07/27/2022 7:08 PM EST 07/27/2022 7:08 PM EST Yas Alvarez MD LAB BLOOD ORDERABLES Performing Organization Address [facility] [place] [address] from Last 3 Months or Most Recently Relevant to Health Maintenance Care Teams Wage Conciliator Relationship Specialty Start Date End Date Yas Alvarez MD [address] [place] [address] Louisjamessheri LOGAN [address] [email or web address] PCP - General Internal Medicine 02/07/19 Kike Garcia MD [address] [address] [place] [address] [email or web address] Insurance Assigned Provider 10/22/24 Additional Source Comments The information contained in this document represents components of the legal health record. It is not the complete legal health record.[facility]
--- OUTSIDE RECORDS SUMMARY | 2024-10-25 14:56 | XMS_ITS | Clinical Summary ---
Author Organization [facility]: [facility] & [facility] Care Address [address] [place] [address] [address] [facility] 8 [place] [address] Care Team Providers Care Outbound Sales Advisor Name Role Phone Generic, Provider Primary Care [...] age to complete this topic Care Teams Outbound Sales Advisor Relationship Specialty Start Date End Date Generic, Provider [address] [address] PCP - General Generic/Test/No PCP 09/06/12
--- OUTSIDE RECORDS SUMMARY | 2024-10-25 14:56 | XMS_ITS | Clinical Summary ---
Author Organization [facility] [employer] [facility] lin Address [address] [facility] [place] [address] Care Team Providers Care Tire Man Name Role Phone Unavailable Primary Care Provider [...] Adults 18 yrs or above (or HM Modifier)([facility]) 1966 Hepatitis C Virus Infection in Adolescents and Adults: Screening (or Modifier) ([facility]) 02/04/1984 [facility] Screening Reminder: Kaylene [place] for all adults ([facility]) 02/04/1984 Tobacco Smoking Cessation: i n Adults excluding Women: Behavioral and Pharmacotherapy Interventions ([facility]) 02/04/1984 Cervical Cancer Screenin 1-65 yrs of age (or Modifier) 1987 Cervical Cancer Screening: P ap every 3 yrs pts age 21-65 1987 Cervical Cancer: Pap Screeni ng with Modifier timing ([facility]) 1987 Cervical Cancer: hrHPV alone or with cotesting Pap for Pts 30-65yrs screening every 5yrs ([facility]) 1987 Colorectal Cancer Screening 45 -75 Yrs (or HM Modifier) 2011 Colorectal Cancer: FLEXIBLE SIGMOIDOSCOPY Screening every 5 yrs 2011 Colorectal Cancer: Fecal Imm unochemical Test (FIT) Annually [facility] 2011 Colorectal Cancer: High-sens itivity gFOBT Screening Annually [facility] 2011 Colorectal Cancer: Stool Col oguard Screening every 3 yrs 2011 Colorectal Cancer:CT Colonog owen Screening every 5 yrs 2011 Lipid Screening: Every 5 yrs for Women aged 45+ (or HM Modifier) ([facility]) 02/04/2012 Breast Cancer: Screening Kaylene ually age 50-74 yrs (or HM Modifier)([facility]) 02/04/2016 Pneumococcal Vaccination Scr eening: Patients 50+ yrs of age ([facility]) (1 of 1 - PCV) 02/04/2016 Zoster/Shingles Vaccine Seri es Screening: Adults aged 18+ yrs (or HM Modifiers)([facility]) (2 of 2) 06/13/2023 04/18/2023 COVID-19 Vaccine Screening: Initial Series and Booster Status ([facility]) ( - 2023- season) 2024 Flu Vaccination: Yearly for ages 18mos through 64 years (or Modifier)([facility]) 02/16/2025 DTaP/Tdap/Td Vaccines ([facility]) (2 - Td or Tdap) 04/17/2019 Medical Devices Not on file Insurance [facility]
--- OUTSIDE RECORDS SUMMARY | 2024-10-25 14:56 | XMS_ITS | Clinical Summary ---
Author Organization [facility] Address [address] [place] [address] Care Team Providers Care Canal Structure Operator Name Role Phone Yas Alvarez MD Primary Care Provider [phone] Allergies Active Allergy Reactions Criticality Noted Date [...] complete this topic Procedures * Due to [employer] law, this organization might not be sharing negative HIV tests. Procedure Name Priority Date/Time Associated Diagnosis Comments DXA BONE DENSITY STUDY AXIAL (LSSPINE, HIP) (DX: OSTEOPENIA) Routine 09/02/2022 3:30 PM EST MAMMOGRAM SCREENING TOMOSYNTHESIS, BILATERAL Routine 09/02/2022 3:23 PM EST Breast cancer screening by mammogram from Last 3 Months or Most Recently Relevant to Health Maintenance Results * Due to [place] Card[place] law, this organization might not be sharing [...] X-RAY ABSORPTIOMETRY (DXA) SCAN: ?? DXA MODEL: MongoDB A in fast scan mode RISK FACTORS: [...] BC FEE FOR SERVICE PPO Care Teams Canal Structure Operator Relationship Specialty Start Date End Date Yas Alvarez MD [address] [place] [address] PCP - General Internal Medicine 08/07/22
--- OUTSIDE RECORDS SUMMARY | 2024-10-25 14:56 | XMS_ITS | Referral Summary ---
Author Organization [facility]: [facility] Address [address] [place] [address] 101 [facility] 8 [place] [address] Care Team Providers Care Harness And Bag Inspector Name Role Phone Generic, Provider Primary Care [...] of Treatment Not on file Care Teams Harness And Bag Inspector Relationship Specialty Start Date End Date Generic, Provider [address] [address] PCP - General Generic/Test/No PCP 09/06/12
--- OUTSIDE RECORDS SUMMARY | 2024-10-25 14:56 | XMS_ITS | Clinical Summary ---
Author Organization [facility] Address [address] [facility] [address] [place] [address] Care Team Providers Care Multimedia Engineer Name Role Phone No Pcp, Per Patient [...] Description 11/13/2024 4:00 PM EDT Office Visit [facility] [address] [place] [address] Jade Jernigan MD [address] [place] [address] Health Maintenance Due Date Last Done Comments [...] age to complete this topic Care Teams Multimedia Engineer Relationship Specialty Start Date End Date No Pcp, Per Patient LOGAN PCP - General Electrical Mechanic 04/24/24
--- OUTSIDE RECORDS SUMMARY | 2024-10-25 14:56 | XMS_ITS | Data Portability ---
Author Organization [place] - [facility] [place], [facility] Address [address] [place] [address] Care Team Providers Care Stripper Latex Name Role Phone JULIUS FLOREZ Primary Care Provider Assessment No assessment recorded. Plan of Treatment Reminders Order Date Submit Date Provider Last Modified By Organization Details Last Modified Time Details Appointments None recorded. Lab None recorded. Referral physical therapist referral - S/P Arthrosco pic Cuff Repair-Le ft Shoulder 2023 024 [email or web address] [facility]), [address], [place], [address], 4 11:14:48 physical therapist referral - S/P Arthrosco pic Cuff Repair-Le ft Shoulder 2023 024 [facility] 2 [facility]), [address], [place], [address], 4 13:38:56 physical therapist referral - S/P LEFT Arthrosco pic Cuff Repair 2023 024 LAURA [facility]), [address], [place], [address], 4 15:27:23 Procedures None recorded. Surgeries None recorded. Imaging None recorded. Medication Orders Celebrex 200 mg capsule 2023 024 [email or web address] [facility]acy #[id number], [address] [place], [address], 13:26:02 tramadol 50 mg tablet 2023 024 [id number], [address] [place], [address], 13:37:14 tramadol 50 mg tablet 2023 024 [facility] #[id number], [address] [place], [address], 13:37:14 Patient TargetsNo targets recorded. Patient InstructionsNo instructions recorded. Reason for Referral Physical Therapist Referral for Rupture of rotator cuff of left shoulder POST OP REHAB S/P LEFT Arthroscopic Cuff Repair IF BICEP TENODESIS: NO ACTIVE ELBOW FLEXION X 3WEEKS NO RESISITED ELBOW FLEXION X 8 WEEKS Referring Physician: Saundra Chase, Physician Multimedia Technician, Encounter Date: 02/11/2024 Physical Therapist Referral for [...] Time 4 Orthopaedic Surgery completed Donnie Joy [facility] 02/11/2024 13:20:10 5 Other completed Murali Bowie [facility] [place] 10/29/2023 08:58:29 Imaging Results None recorded. Procedure Notes None recorded. Medical Equipment None Reported. Allergies Allergen ID Allergen Name Allergen Category Reaction Reaction Severity Criticality Documentation Date Start Date Code Code System Note Provider Name and Address Organization Details Recorded Time [id number] codeine medicatio n Not available Not available Not available 10/29/2023 2670 RxNorm Murali mora [facility] 08:58:21 Medications Name Sig Start Date Stop [...] Updated DateTime 02/11/2024 170.18 cm Donnie Joy [facility] [place] 02/11/2024 13:19:44 Date Recorded Body height Body mass index (BMI) Body weight Provider Name and Address Organization Details Last Updated DateTime 03/14/2024 170.18 cm 28.2 kg/m2 10729.63 g Shea booth [facility] 03/14/2024 12:52:38 Date Recorded Body height Provider Name an d Address Organization Details Last Updated DateTime 04/25/2024 170.18 cm Shea Amos [facility] [place] 04/25/2024 13:37:04 Date Recorded Body height Provider Name an d Address Organization Details Last Updated DateTime 06/27/2024 170.18 cm Josefina Kong [facility] Kareem riddle [facility] 06/27/2024 13:17:05 Date Recorded Body height Provider Name an d Address Organization Details Last Updated DateTime 08/31/2024 170.18 cm Donnie Joy [facility] [place] 08/31/2024 17:02:54 Social History Question Answer Notes LastModified by Organizat ion Details LastModified Time Tobacco Smoking Status Former Smoker Murali mora [facility] 10/29/2023 08:58:26 What Is Your Level Of Alcohol Consumption? None [email or web address] Information not available 10/29/2023 Are You Currently Employed? Yes Information not available 03/14/2024 Do You Or Have You Ever Used E-cigarettes Or Vape? 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 1-2 Times Per Week Information not available 03/14/2024 Do You Or Have You Ever Used Smokeless Tobacco? Never Used Smokeless Tobacco Information not available 10/29/2023 How Much Tobacco Do You Smoke? No [email or web address] Information not available 10/29/2023 How Many Years [...] available 03/14 12:55:22 Medical History Condition Response Blood Clots / Phlebitis N HIV or AIDS N Heart Problems N High Blood Pressure N Depression or Anxiety N Irregular Heartbeat N MRSA N Emphysema / Chronic Bronchitis N Any Other Significant Medical Issues Y Reaction to General/Local Anesthesia N Hepatitis / Jaundice N Weight Gain / Loss N Kidney / Bladder Infections N Diabetes N Bleeding Disorder N Hearing Loss N Angina, Heart Failure or Attack N Night Sweats N Seizures / Epilepsy N Osteoarthritis / Rheumatoid arthritis / Other N Cancer N Stroke N Chemical Dependency / Alcoholism N Ulcer / Stomach Bleeding / Indigestion N Visual Loss or Glaucoma N Psoriasis / Skin Rash N Thyroid Disorder N Heart Disease N Asthma / Shortness of Breath / Sleep Credit Authorizer ea (please specify) N Pulmonary Embolism N Gynecological HistoryNo gynecological history recorded. Obstetrics History GPAL:G 0 P 0 0 0 0 Past Encounters Encounter ID Performer Location Encounter Start Date Encounter Closed Date Diagnosis/Indication Diagnosis SNOMED-CT Code Diagnosis ICD10 Code Diagnosis Note [id number] RASHMI DEL VALLE [facility] Office [address] [place] [address] 10/29/2023 08:21:29 10/29/2023 09:25:25 Bursitis of left shoulder 5069080224 41039 M75.52 [id number] RASHMI DEL VALLE [address] [address] 11/08/2023 14:12:08 11/08/2023 15:05:40 Strain of rotator cuff of shoulder 724782076 S46.012A [id number] GERTRUDE LUCIA MD [address] [address] 11/11/2023 13:25:14 11/11/2023 14:52:31 Bursitis of left shoulder 9812250386 37672 M75.52 Impingemen t syndrome of left shoulder region 3506958834 38558 M75.42 Pain of ri ght shoulder joint 8710923024 1031788 M25.511 Strain of rotator cuff of shoulder 852239617 S46.011A [id number] RASHMI DEL VALLE [address] [address] 12/02/2023 09:45:14 12/02/2023 11:30:03 Bone spur of left shoulder 6530980751 55055 M25.712 Impingemen t syndrome of left shoulder region 8489929634 42587 M75.42 [id number] RASHMI DEL VALLE [facility] Office [address] [address] 02/11/2024 13:00:48 02/11/2024 13:59:33 Pain of left shoulder joint 0460307549 0201764 M25.512 Rupture of rotator cuff of left shoulder 9902344196 2670040 M75.102 Shoulder pain 08891525 M 25.857 [id number] MD [facility] [address] [place] [address] 03/14/2024 12:47:57 03/14/2024 13:38:56 Strain of rotator cuff of shoulder 621123306 S46.012A Shoulder pain 77916508 M 25.715 [id number] MD SHANNAN MARTINE[facility]az[facility] [address] [facility] [address] [place] [address] 04/25/2024 13:34:23 04/25/2024 13:59:12 Strain of rotator cuff of shoulder 584859612 S46.012D [id number] GERTRUDE LUCIA MD [facility] Office [address] [place] [address] 06/27/2024 13:08:38 06/27/2024 14:00:23 Bursitis of left shoulder 5650449851 17379 M75.52 Bone spur of left shoulder 8341873048 74577 M25.712 Impingemen t syndrome of left shoulder region 2913605563 51151 M75.42 Strain of rotator cuff of shoulder 586679855 S46.012D [id number] Gertrude Lucia MD [place] [facility] [address] [place] [address] 08/31/2024 17:02:38 08/31/2024 18:04:43 Strain of rotator cuff of shoulder 577351694 S46.011D Health Concerns Section Related Observation LastModified by Organization Detai ls LastModified Time None Recorded Concern Status LastModified by Organization Details LastModified Time None Recorded Advance Directives Directive None Recorded Payers Encounter Date Sequence Insurance Name Policy Number Policy Jin Covered Member ID Jin Member ID Guarantor Name 02/11/2024 1 [place] [id number] Herminio Leonard [id number] Shikha Leonard 03/14/2024 1 [place] [id number] Herminio Leonard [id number] Shikha Leonard 04/25/2024 1 [place] [id number] Herminio Leonard [id number] Shikha Leonard 06/27/2024 1 [place] [id number] Herminio Destini AlbertoHoracio [id number] Shikha Leonard 08/31/2024 1 [place] [id number] Herminio Leonard [id number] Shikha Leonard Notes Date Note Type [...] weeks with Dr. Lucia. RASHMI DEL VALLE [address] [place] [address], [phone], [facility] 02/15/2024 17:37:34 03/14/2024 text/html Shikha comes in today, doing okay. She is very protective of the shoulder that is a bit stiff, so I have encouraged her to wean out of the sling, really work on stretching. Continue physical therapy. Back in 6 weeks. GERTRUDE LUCIA MD [address] [place] [address], [phone], [facility] 03/15/2024 08:20:55 04/25/2024 text/html Shikha is doing great 3 months out, full range of motion, minimal discomfort. Very happy with where she is. Continue PT. Let us add some massage for rhomboid pain and recheck in 2 months. GERTRUDE LUCIA MD [address] [place] [address], [phone], [facility] 04/26/2024 08:24:44 06/27/2024 text/html Shikha comes in today 5 months out, doing remarkably well. She has full range of motion. No pain. She is very happy with her progress. Home exercise program. Recheck via telehealth in 2 months. GERTRUDE LUCIA MD [address] [place] [address], [phone], [facility] 06/28/2024 10:53:21 08/31/2024 text/html Shikha is a [id number]-[id number]-half months out from repair of the rotator cuff, doing great. She has great motion except for internal rotation is improving, but she has no pain. She can continue home exercise program. Follow up p.r.n., [id number] encounter. This visit was conducted as a real time interactive TeleHealth audio & visual via [employer]. The patient was identified by name and date of and consented to this TeleHealth visit. The patient was at their home in [place] and I was at my [place] office. Participants of the telehealth visit included myself and the patient. This was done over the course of 10 minutes including record review. Gertrude Lucia MD [address] [place] [address], [place], [address], [facility] 09/01/2024 08:04:46 OBGyn Episode No OBEpisode recorded.
--- OUTSIDE RECORDS SUMMARY | 2024-10-25 14:57 | XMS_ITS | Encounter Summary ---
Author Organization [facility] Address [address] [facility] [address] [place] [address] Care Team Providers Care Winder Helper Name Role Phone No Pcp, Per Patient Primary Care Provider Unajenniferi lable Reason for Visit * Reason Comments Med Refill Encounter Details Date Type Department Care Team (Late st Contact Info) Description 07/21/2024 Refill [facility] [address] [place] [address] Jade Jernigan MD [address] [place] [address] Androgenetic alopecia Social History Tobacco Use Types [...] Description 11/13/2024 4:00 PM EDT Office Visit [facility] [address] [place] [address] Jade Jernigan MD [address] [place] [address] documented as of this encounter Visit Diagnoses Diagnosis Androgenetic alopecia documented in this encounter Care Teams Winder Helper Relationship Specialty Start Date End Date No Pcp, Per Patient [place] PCP - General Kitchen Manager 04/24/24 documented as of this encounter
--- OUTSIDE RECORDS SUMMARY | 2024-10-25 14:57 | XMS_ITS | Encounter Summary ---
Author Organization [facility] Address [address] [place] [address] Phone Care Team Providers Care Oyster Floater Name Role Phone Yas Alvarez MD Primary Care Provider Yas Alvarez MD Unavailable [phone] Kike Garcia MD Unavailable [phone] Encounter Details Date Type Department Care Team (Late st Contact Info) Description 10/18/2024 2:30 PM EDT Follow-Up [facility] [address] [address] Claire John, [facility] 873 [facility] 3 [place] [address] [email or web address] Class 1 obesity without serious comorbidity with [...] this encounter Progress Notes * Claire John, FREEZER PERSON - 10/18/2024 2:30 PM EDT HPI: Shikha [...] differential Iron and iron binding capacity Ferritin * Yas Alvarez MD - 10/18/2024 2:30 PM EDT Subject Line: Provider Attestation I have reviewed the notes, assessments, and/or procedures performed by Claire John, I concur withher/his documentation of Shikha Leonard. documented in this encounter Miscellaneous Notes * [...] Time PHQ-9 Depression Total Score: 5 10/19/19 2:44 PM EDT PHQ-2 Depression Total Score: 2 10/19/19 2:44 PM EDT documented as of this encounter Care Teams Oyster Floater Relationship Specialty Start Date End Date Yas Alvarez MD [address] [place] [phone] [email or web address] PCP - General Internal Medicine 02/07/19 Yas Alvarez MD [address] [place] [address] [email or web address] Insurance Assigned Provider 10/23/23 10/22/24 Kike Garcia MD [address] [place] [phone] [email or web address] Insurance Assigned Provider 10/22/24 documented as of this encounter Additional Source Comments The information contained in this document represents components of the legal health record. It is not the complete legal health record.[facility]
--- OUTSIDE RECORDS SUMMARY | 2024-10-25 14:57 | XMS_ITS | Encounter Summary ---
Author Organization [facility]: [facility] & [facility] Address [address] [facility] [address] [place] [address] Care Team Providers Care Coroner Technician Name Role Phone Generic, Provider Primary Care Provider +[id number] Encounter Details Date Type Department Care Team (Late st Contact Info) Description 12/24/2011 [facility] Medicine at [address] [address] [address] Horner Social History Tobacco Use Types [...] on filedocumented in this encounter Care Teams Coroner Technician Relationship Specialty Start Date End Date Generic, Provider [address] [address] PCP - General Generic/Test/No PCP 09/06/12 documented as of this encounter
--- OUTSIDE RECORDS SUMMARY | 2024-10-25 14:57 | XMS_ITS | Encounter Summary ---
Author Organization [facility]: [facility] & [facility] Address [address] [facility] [address] [place] [address] Care Team Providers Care Oil Analyst Name Role Phone Generic, Provider Primary Care Provider +[phone] Encounter Details Date Type Department Care Team (Late st Contact Info) Description 03/04/2010 [facility] at [address] [address] MRI of the Lumbar Spine-02/28/10 Social History [...] on filedocumented in this encounter Care Teams Oil Analyst Relationship Specialty Start Date End Date Generic, Provider [address] [address] PCP - General Generic/Test/No PCP 09/06/12 documented as of this encounter
[2024-10-27 12:25] VITALS: BP 132/66; PULSE 65; RESP 14; TEMP 36.9; O2SAT 96; BMI 33.4
[2024-10-27] MEDS: Lactated Ringers 1,000 ML 100 ML IVCONT (12:35)
--- NOTE | 2024-10-27 13:09 | MHC.SHP ---
Pre-Procedural Eval Section A - 24 Hr Update-Section A only Date of Service: 10/27/24 The patient is an INPATIENT: No The patient has been examined within 24 hours of the surgical procedure. The History & Physical has been completed within 30 days and I have reviewed it.: Yes Section B - Complete if H&P > 30 days Chief Complaint: Obesity, unspecified Details of Present Illness: GERD Relevant Family History (Specify if Yes): No Relevant Social History: None Present Medications: None Medical History: No relevant PMH History of Previous Operations: No relevant previous surgery Allergies: Allergies Allergy/AdvReac Type Severity Reaction Status Date / Time codeine Allergy Mild Unknown Verified 10/27/24 12:18 Review of Systems Sugical H&P ROS: Negative: Constitution, Cardiovascular, Respiratory, Neurological, Psychiatric, Hem-Onc, Allergic/Immunologic, Gastrointestinal, Genitourinary, Musculoskeletal, Integumentary, Endocrine and Eyes/Ears/Nose/Throat Exam Surgical H&P Exam: Normal: HEENT, Normal: Heart, Normal: Lungs, Normal: Extremities, Normal: Abdomen, Normal: Skin and Normal: Neurological Plan Diagnosis/Plan: Unchanged (EGD to assess etiology of GERD. Risks of bleeding and perforation were discussed with the patient and she is in agreement with the plan.) I have reviewed the history and physical and performed a pertinent physical examination on my patient. No changes have occurred unless specified. Time Spent With Patient Time: Total time managing care of this patient today ____ minutes.
--- NOTE | 2024-10-27 13:12 | P.BOP_ITS ---
Brief Operative Note Date of Service: 10/27/24 Pre-op diagnosis: GERD Post-op diagnosis: same Procedure: PROCEDURE DATE: 10/27/2024 PREOPERATIVE DIAGNOSIS: GERD POSTOPERATIVE DIAGNOSIS: ?Same as above. 1) Duodenitis, 2) gastritis, 3) gastric polyps, 4) small diaphragmatic hernia PROCEDURE: Wgtwefxs-srxjhi-ynikheyyasys with biopsies Surgeon: ?Alexx Lr M.D.. Ph.D. Skein Mercerizing Machine Operator: None ? Anesthesia: IV sedation Estimated blood loss: ?Minimal FINDINGS AND PROCEDURE: ? OPERATIVE INDICATIONS: ?The patient is a 59 year old female known to me who is interested in bariatric surgery. The patient has GERD. Based on this information I recommended an upper endoscopy to evaluate the patient's symptoms. Risks and complications of the surgery were discussed with the patient in advance particularly the possibility of perforation or bleeding that may require surgical intervention. The patient understood the risks and was in agreement with the plan. ? PROCEDURE: After informed consent was obtained by the patient, the patient was ?transferred to the Operating Room and was placed in the supine position.? After successful induction of IV sedation, a mouth block was inserted and the patient was placed in the left lateral decubitus position. An upper endoscopy was performed next, the oropharynx and esophagus appeared within the normal limits. There was a small 1cm diaphragmatic hernia. The z-line was smooth. Two biopsies were obtained from the distal esophagus 2-3 cm proximal to the GE junction and two additional biopsies from the GE junction. The stomach was entered and it appeared to be of normal size. There was mild gastritis at distal antrum. There was no stricture or ulcer. A biopsy was obtained from the gastric fundus and the antrum. There were scattered benign-appearing gastric polyps and one of them located in the gastric fundus was biopsied. No significant bleeding was noted from any of the biopsy sites. Retroflexion of the scope confirmed the presence of a small diaphragmatic hernia. The scope was then advanced into the duodenum which appeared to have some erythema consistent with duodenitis. At that point the duodenum ?and the stomach were decompressed and the scope was withdrawn from the patient's mouth. The patient extubated and was transferred in stable condition to the Recovery Room for further care. I was present and performed all steps of the procedure. There were no residents to assist with this case. Alexx Lr M.D., Ph.D. Surgeon: Tyrell Lr MD Anesthesia: MAC Was an Skein Mercerizing Machine Operator used for this Procedure?: No Estimated blood loss (mL): 0 IV fluids (mL): 400 Urine output (mL): 0 (No Juarez to record output) Pathology: other (1) antrum x1, 2) fundus and polyp x1, 3) GE junction x2, 4) distal esophagus x2) Condition: stable Disposition: PACU
[2024-10-27 13:35] VITALS: BP 129/50; PULSE 79; RESP 16; TEMP 36.4; O2SAT 95
[2024-10-27 13:50] VITALS: BP 116/52; PULSE 69; RESP 16; O2SAT 97
[2024-10-27 14:01] VITALS: BP 123/59; PULSE 72; RESP 16; TEMP 36.3; O2SAT 97
--- NOTE | 2024-10-27 14:38 | HO.POSTANES ---
Post Anesthesia Evaluation Post Anesthesia Evaluation Date of Service: 10/27/24 Vital Signs: Vital Signs Temp Pulse Resp BP Pulse Ox O2 Del Method 10/27/24 14:01 97.4 F 72 16 123/59 L 97 Room Air 10/27/24 13:50 69 16 116/52 L 97 Room Air 10/27/24 13:35 97.6 F 79 16 129/50 L 95 Room Air 10/27/24 12:25 98.4 F 65 14 132/66 96 Room Air Anesthesia: Monitored Mental Status: Awake Pain Control: Satisfactory Nausea/Vomiting: None Hydration: Adequate Anesthesia-Related Issues: No Anes. Related Issues
== END 2024-10-27 14:22 | disposition home or self-care (01) ==
PROVIDERS: Visit Provider Surgery
PROC: 0DJ08ZZ Inspection of Upper Intestinal Tract, Via Natural or Artificial Opening Endoscopic (ICD-10-PCS; CPT 43235; principal; 2024-10-27 13:00)
DX: K21.9 Gastro-esophageal reflux disease without esophagitis (principal); E66.09 Other obesity due to excess calories; Z68.35 Body mass index [BMI] 35.0-35.9, adult; K29.60 Other gastritis without bleeding; K29.80 Duodenitis without bleeding; K31.7 Polyp of stomach and duodenum; K44.9 Diaphragmatic hernia without obstruction or gangrene; I10 Essential (primary) hypertension; E78.5 Hyperlipidemia, unspecified; R73.03 Prediabetes; R60.0 Localized edema; M19.90 Unspecified osteoarthritis, unspecified site; Z79.899 Other long term (current) drug therapy; Z88.5 Allergy status to narcotic agent; Z98.890 Other specified postprocedural states
CPT/HCPCS: 43239; 88305; 88313; 88342; J2003; J2704

== ENCOUNTER → 2024-10-27 11:34 | Outpatient (BNV) | payer BC, SELFPAY | PROVIDERS: Visit Provider Surgery | DX: K29.80 Duodenitis without bleeding (principal); K29.70 Gastritis, unspecified, without bleeding; K31.7 Polyp of stomach and duodenum | CPT/HCPCS: 43239 ==

== ENCOUNTER 2024-11-10 09:06 | Outpatient (AMB) | payer BC, SELFPAY ==
--- NOTE | 2024-11-10 09:00 | MHC.WMTHER ---
Intake Intake Visit Reasons: VIDEO BH Intake Allergies codeine Allergy (Mild, Verified 10/27/24 12:18) Unknown [facility] Medical History Hyperlipidemia Lower extremity edema Hypertension GERD (gastroesophageal reflux disease) DJD (degenerative joint disease) Pre-diabetes Pitting edema Obesity Hx of degenerative disc disease Surgical History (Updated 10/19/24 @ 08:42 by GERARDO Casas) S/P rotator cuff repair Hx of colonoscopy Hx of breast augmentation Hx of LASIK History of left oophorectomy Hx of tubal ligation Hx of cholecystectomy Hx of umbilical hernia repair Family History (Updated 10/19/24 @ 09:17 by GERARDO Casas) Mother Diabetes Congestive heart failure Father Colon polyp Tachycardia Paternal Grandmother Colon cancer Colostomy care Tachycardia Social History Are you a primary pharmacy customer care specialist to a significant other at home: No Do you presently have visiting nurse or other home services: No Patient Tobacco Use Status: Former Tobacco user Behavioral Health Assessment Weight Management Therapy Therapy Notes Details The patient is a 59-year-old female presenting for a behavioral health assessment as part of the surgical weight loss program. She is self-referred for bariatric surgery, reporting a 4?6 year struggle with weight gain. She began the program at her highest recorded weight of 211 lbs. The patient is seeking a sustainable solution to help her achieve and maintain long-term weight loss. She denies any history of mental health treatment, psychiatric hospitalizations, or behavioral health crises. She also denies current or past suicidal ideation, suicide attempts, self-harm, or homicidal ideation. No history of substance use is reported. Binge Eating Scale (BES) scores suggest moderate-low risk for disordered eating patterns. PHQ-9 scores indicate no current symptoms or concerns related to depression. Mental status exam is within normal limits, with no evidence of psychological impairment. Presenting Concerns Referral Source [facility]-Provider. PT had initial visit with Dr. Ashford on 10/20/2024 Reason for referral Completion of behavioral health assessment as part of process for weight-loss surgery. Precipitating Event Obesity. Living Situation Current Living Situation Own At risk of losing current housing? No Satisfied with current living situation? Yes Comments PT lives with her and her pet. Food/Weight/Diet Expectations of change The patient?s initial goal is to lose approximately 10% of her body weight prior to surgery, which equals about 21 lbs. Her current pre-surgical target weight is 190 lbs. She began the program at 211 lbs. Her long-term weight loss goal is to reach 135 lbs. Current Implementation Plan: -Meal Plan: Patient is currently following the slow meal plan, which includes three structured meals, one protein shake, and one nutrition bar per day. -Exercise Plan: Patient has an active gym membership and is in the process of building consistency with physical activity. - Monitoring Tools: Patient owns a scale and is regularly tracking her weight. Motivational Insights: Patient reports feeling somewhat apprehensive about the dietary component of the program. She expressed a preference for gradual, steady weight loss rather than rapid changes. Additionally, she shared that if the weight loss after surgery feels too drastic or sudden, she may reconsider proceeding with the procedure. History/Relationship with food Patient describes having a long-standing sweet tooth and identifies sugar as her primary dietary challenge. In earlier years, she experienced appetite suppression during periods of high stress, often unable to eat. As she has gotten older, she reports managing stress differently, which no longer affects her eating habits in the same way. She does not tend to eat large portions; instead, her food choices?particularly sweets?are the main concern. She reports feeling generally in control of her eating during the day, with no episodes of binge eating. Patient denies any history of disordered eating behaviors. History/Relationship with weight Patient denies any history of overweight or obesity prior to menopause. She reports maintaining a weight between 140?150 lbs consistently until the onset of menopause, after which she began experiencing weight fluctuations. Since then, she describes a pattern of yo-yo dieting and gradual weight gain. She also reports the development of edema during this period. Over the past 10 years, her weight has ranged from a low of 168 lbs to a high of 211 lbs, which is her current weight. History/Relationship with dieting Patient reports trying multiple weight loss methods over the years, with a maximum adherence of approximately six months to any single plan. Strategies have included cutting carbohydrates and sugar, using weight loss medications such as Wegovy and Zepbound, participating in Weight Watchers, and using Shakeology meal replacement products. She notes limited long-term success with these approaches and reports challenges with maintaining consistency over time. Binge Eating Do you frequently eat large amounts of food in short periods of time, not feeling physically hungry? No Do you feel out of control when you eat a large amount of food in a short period of time? No Do you eat large amounts of food rapidly and typically alone? No Night Eating Do you wake up at least once during the night to eat? No If you wake up in the night, do you find that it is necessary to eat something in order to fall back asleep? No Do you have little or no appetite in the morning and feel very hungry in the evening, often overeating between dinner and when you go to bed? No Social History Family history and relationship for 22 years. PT has 2 adult children and 4 grandkids. Mom 2 years ago, dad alive in a fdc w/ vascular dementia. Pt has a step sister. Good family dynamics. 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 Developmental history and status None reported. Currently WNL. Social support . sister, aunt. Community support PCP. [employer]ybeterian/Spirituality Denominational. Not afiliated to any episcopal. Cultural/Ethnic information Legal Involvement and History Current or historical involvement with the legal system? None. Education Highest grade completed HS. Some college. Preferred learning style Visual Currently enrolled in educational program? No Interested in further educational program? 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 ) Wants help to find employment? No Meaningful activities Photography, motorcycle riding, travel, and social activities. Help people. Financial Situation Describe current financial situation Comfortable Financial assistance? None Service Service? No Mental Health and Addiction Treatment Current/Past substance abuse? No Comments Alcohol: 1 twice at month when going out for dinner. Cigarettes/Tobacco: None. Cannabis/Edibles: None. Current/Past addictive behavior concerns? No Psychiatric history Patient reports no history of mental health treatment or engagement with behavioral health services. She denies ever experiencing a psychiatric crisis or requiring inpatient care. There is no past or current indication of suicidal ideation (SI), suicide attempts (SA), self-harm, or thoughts of harming others. Medical and Physical Health Summary Additional Medical History not covered in history None additional. Sexual History concerns None reported. Physical exam in the last year? Yes Pain Screening Current pain? Yes Pain in the last few months? Yes Medications Is the patient compliant with medications? Yes Does the patient have [place] Guardian in place? Not applicable Does the patient use complimentary health approaches? No Questionnaires PHQ-9 Over the last 2 weeks, how often have you been bothered by any of the following problems? 1. Little interest or pleasure in doing things: not at all 2. Feeling down, depressed, or hopeless: several days (sad grief) 3. Trouble falling or staying asleep, or sleeping too much: not at all 4. Feeling tired or having little energy: several days 5. Poor appetite or overeating: not at all 6. Feeling bad about yourself - or that you are a failure or have let yourself or your family down: not at all 7. Trouble concentrating on things, such as reading the newspaper or watching television: not at all 8. Moving or speaking so slowly that other people could have noticed. Or the opposite - being so fidgety or restless that you have been moving around a lot more than usual: not at all 9. Thoughts that you would be better off or of hurting yourself in some way: not at all Total score: 2 Depression Screening Interpretation: Negative Depression Screening Done: Yes 98943 - PHQ-9 Billing: Yes Source: Developed by Drs. Keron Barker, Susu Ulloa, Hugh Varela and colleagues, with an educational mando from [employer]. Binge Eating Scale Group 1 A. I don't feel self-conscious about my wt. or body size when I'm with others. B. I feel concerned about how I look to others, but it normally does not make me fell disappointed with myself C. I do get self-conscious about my appearance and wt. which makes me feel disappointed in myself. D. I feel very self-conscious about my wt. and frequently I feel intense shame and disgust for myself. I try to avoid social contacts because of my self-consciousness. Response Group 1: D Group 2 A. I don't have any difficulty eating slowly in the proper manner. B. Although I seem to gobble down foods, I don't end up feeling stuffed because of eating to much. C. At times, I tend to eat quickly and then, I feel uncomfortably full afterwards. D. I have the habit of bolting down my food, without really chewing it. When this happens I usually feel uncomfortably stuffed because I've eaten to much. Response Group 2: A Group 3 A. I feel capable to control my eating urges when I want to. B. I feel like I have failed to control my eating more than the average person. C. I feel utterly helpless when it comes to feeling in control of my eating urges. D. Because I feel so helpless about controlling my eating I have become very desperate about trying to get control. Response Group 3: B Group 4 A. I don't have the habit of eating when I'm bored. B. I sometimes eat when I'm bored, but often I'm able to get busy and get my mind off food. C. I have a regular habit of eating when I'm bored, but occasionally, I can use some other activity to get my mind off eating. D. I have a strong habit of eating when I'm bored. Nothing seems to help me breath the habit. Response Group 4: C Group 5 A. I'm usually physically hungry when I eat something. B. Occasionally, I eat something on impulse even though I really am not hungry. C. I have the regular habit of eating foods, that I might not really enjoy, to satisfy a hungry feeling even though physically, I don't need the food. D. Although I'm not physically hungry, I get a hungry feeling in my mouth that only seems to be satisfied when I eat a food, like sandwich, that fills my mouth. Sometimes, when I eat the food to satisfy my mouth hunger, I then spit the food out so I won't gain weight. Response Group 5: B Group 6 A. I don't feel any guilt or self-hate after I overeat. B. After I overeat, occasionally I feel guilt or self-hate. C. Almost all the time I experience strong guilt or self-hate after I overeat. Response Group 6: C Group 7 A. I don't lose total control of my eating when dieting even after periods when I overeat. B. Sometimes when I eat a forbidden food on a diet, I feel like I blew it and eat even more. C. Frequently, I have the habit of saying to myself, I've blown it now, why not go all the way, when I overeat on a diet. When that happens I eat more. D. I have a regular habit of starting a strict diets for myself but I break the diets by going on an eating binge. My life seems to be either a feast or famine. Response Group 7: C Group 8 A. I rarely eat so much food that I feel uncomfortably stuffed afterwards. B. Usually about once a month, I each such a quantity of food, I end up feeling very stuffed. C. I have regular periods during the month when I eat large amounts of food, either at mealtime or at snacks. D. I eat so much food that I regularly feel quite uncomfortable after eating and sometimes a bit nauseous. Response Group 8: C Group 9 A. My level of calorie intake does not go up very high or go down very low on a regular basis. B. Sometimes after I overeat, I will try to reduce my caloric intake to almost nothing to compensate for the excess calories I've eaten. C. I have a regular habit of overeating during the night. It seems that my routine is not to be hungry in the morning but overeat in the evening. D. In my adult years, I have had week-long periods where I practically starve myself. This follows periods when I overeat. It seems I live a life of either feast or famine. Response Group 9: C Group 10 A. I usually am able to stop eating when I want to. I know when enough is enough. B. Every so often, I experience a compulsion to eat which I can't seem to control. C. Frequently, I experience strong urges to eat which I seem unable to control, but at other times I can control my eating urges. D. I feel incapable of controlling urges to eat. I have a fear of not being able to stop eating voluntarily. Response Group 10: B Group 11 A. I don't have any problem stopping eating when I feel full. B. I usually can stop eating when I feel full but occasionally overeat leaving me feeling uncomfortably stuffed. C. I have a problem stopping eating once I start and usually I feel uncomfortably stuffed after I eat a meal. D. Because I have a problem not being able to stop eating when I want, I sometimes have to induce vomiting to relieve my stuffed feeling. Response Group 11: B Group 12 A. I seem to eat just as much when I'm with others, Family social gatherings as when I'm by myself. B. Sometimes, when I'm with other persons, I don't eat as much as I want to eat because I'm self-conscious about my eating. C. Frequently, I eat only a small amount of food when others are present, because I'm very embarrassed about my eating. D. I feel so ashamed about overeating that I pick times to overeat when I know no one will see me. I feel like a closet eater. Response Group 12: B Group 13 A. I eat three meals a day with only an occasional between meal snack. B. I eat 3 meals a day, but I also normally snack between meals. C. When I am snacking heavily, I get in the habit of skipping regular meals. D. There are regular periods when I seem to be continually eating, with no planned meals. Response Group 13: B Group 14 A. I don't think much about trying to control unwanted eating urges. B. At least some of the time, I feel my thoughts are pre-occupied with trying to control my eating urges. C. I feel that frequently I spend much time thinking about how much I ate or about trying not to eat anymore. D. It seems to me that most of my waking hours are pre-occupied by thoughts about eating or not eating. I feel like I'm constantly struggling not to eat. Response Group 14: B Group 15 A. I don't think about food a great deal. B. I have strong craving for food but they last only for brief periods of time. C. I have days when I can't seem to think about anything else but food. D. Most of my days seem to be pre-occupied with thoughts about food. I feel like I live to eat. Response Group 15: C Group 16 A. I usually know whether or not I'm physically hungry. I take the right portion of food to satisfy me. B. Occasionally, I feel uncertain about knowing whether or not I'm physically hungry. A these times it's hard to know how much food I should take to satisfy me. C. Even though I might know how many calories I should eat, I don't have any idea what is a normal amount of food for me. Response Group 16: B Binge Eating Score: 23 Score less than 17 Minimal Risk Score between 18-26 Moderate Risk Score between 27-46 High Risk Assessment & Plan Assessment & Plan (1) Adjustment disorder: Code(s): F43.20 - Adjustment disorder, unspecified Qualifiers: Adjustment disorder type: with other symptoms Qualified Code(s): F43.29 - Adjustment disorder with other symptoms Plan From a behavioral health standpoint, the patient is cleared for insurance submission when ready. She will be seen again 2?4 weeks postoperatively for follow-up support. Next pasha: 2-4 weeks PO. Telehealth Telehealth Telehealth Platform: [employer] Location of provider rendering services: other ([facility], [place], [place].) Location of patient: address on file Patient Identification confirmed using: Name, : Yes Telehealth method: video Patient verbally consented to treatment: Yes Patient verbally consented to billing insurance company: Yes Patient informed of any privacy concerns related to visit: Yes Minutes spent on Phone/Video with Pt.: 75 Coding Level of Care Code New Pt Tele Psytx >53 mins ([id number]) Patient Type New Diagnoses Adjustment disorder with other symptom F43.29 Adjustment disorder type: with other symptoms Additional Codes PHQ-9 - 67653 - PHQ-9 Billing: Yes ([id number]) Time Spent (min) 75
--- OUTSIDE RECORDS SUMMARY | 2024-11-10 09:17 | XMS_ITS | Referral Summary ---
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 Procedure Name Priority Date/Time Associated Diagnosis Comments ECG 12-LEAD Routine 11/01/2024 5:14 PM EDT Class 1 obesity with body mass index (BMI) of 34.0 to 34.9 in adult, unspecified obesity type, unspecified whether serious comorbidity present from Last 3 Months Results * Due to [place] Assurely law, this organization might not be sharing negative HIV tests. * ECG 12 lead (11/01/2024 5:14 PM EDT) Ventricular Rate EKG 61 BPM MUSE EKG Atrial Rate 61 BPM MUSE EKG TX Interval 150 ms MUSE EKG QRS Interval 94 ms MUSE EKG QT Interval 402 ms MUSE EKG QTC Interval 404 ms MUSE EKG R [place] 202 degrees MUSE EKG T Wave [place] 163 degrees MUSE EKG 11/01/2024 5:14 PM EDT 11/08/2024 12:41 PM EDT Impressions MUSE EKG - 11/08/2024 12:41 PM EDT limb Lead reversal Normal sinus rhythm Incomplete right bundle branch block T wave abnormality, consider inferior ischemia Abnormal ECG Confirmed by Sahil Burkett ([id number]) on 11/08/2024 12:41:41 PM us Tyrell Lr ECG ORDERABLES Final Result MUSE EKG from Last 3 Months Insurance [facility] PPO/EPO [facility] PPO/EPO Care Teams Music Critic Relationship Specialty Start Date End Date Unknown, Doctor Unknown Unknown, LOGAN PCP - General 11/01/24
--- OUTSIDE RECORDS SUMMARY | 2024-11-10 09:17 | XMS_ITS | Data Portability ---
Author Organization [place] - [facility], [facility] - INPATIENT Address [address] [place] [address] Care Team Providers Care Marina Dry Dock Manager Name Role Phone JULIUS FLOREZ Primary Care Provider Assessment No assessment recorded. Plan of Treatment Reminders Order Date Submit Date Provider Last Modified By Organization Details Last Modified Time Details Appointments None recorded. Lab None recorded. Referral physical therapist referral - S/P Arthrosco pic Cuff Repair-Le ft Shoulder 2023 024 [email or web address] [facility] Physical [facility]), [address], [place], [address], 4 11:14:48 physical therapist referral - S/P Arthrosco pic Cuff Repair-Le ft Shoulder 2023 024 [email or web address] 2 [facility]), [address], [place], [address], 4 13:38:56 physical therapist referral - S/P LEFT Arthrosco pic Cuff Repair 2023 024 LAURA [facility]), [address], [place], [address], 4 15:27:23 Procedures None recorded. Surgeries None recorded. Imaging None recorded. Medication Orders Celebrex 200 mg capsule 2023 024 [email or web address] [id number], [address] [place], [address], 13:26:02 tramadol 50 mg tablet 2023 024 [id number], [address] [place], [address], 13:37:14 tramadol 50 mg tablet 2023 024 [id number], [address] [place], [address], 13:37:14 Patient TargetsNo targets recorded. Patient InstructionsNo instructions recorded. Reason for Referral Physical Therapist Referral for Rupture of rotator cuff of left shoulder POST OP REHAB S/P LEFT Arthroscopic Cuff Repair IF BICEP TENODESIS: NO ACTIVE ELBOW FLEXION X 3WEEKS NO RESISITED ELBOW FLEXION X 8 WEEKS Referring Physician: Saundra Chase, Physician Yam Curer, Encounter Date: 02/11/2024 Physical Therapist Referral for [...] Time 4 Orthopaedic Surgery completed Donnie Joy [facility] 02/11/2024 13:20:10 5 Other completed Murali Bowie [facility] [place] 10/29/2023 08:58:29 Imaging Results None recorded. Procedure Notes None recorded. Medical Equipment None Reported. Allergies Allergen ID Allergen Name Allergen Category Reaction Reaction Severity Criticality Documentation Date Start Date Code Code System Note Provider Name and Address Organization Details Recorded Time [id number] codeine medicatio n Not available Not available Not available 10/29/2023 2670 RxNorm Murali mora [facility] 08:58:21 Medications Name Sig Start Date Stop [...] DateTime 02/11/2024 170.18 cm Donnie Joy [facility] [place] 02/11/2024 13:19:44 Date Recorded Body height Body mass index (BMI) Body weight Provider Name and Address Organization Details Last Updated DateTime 03/14/2024 170.18 cm 28.2 kg/m2 67968.63 g Shea booth [facility] 03/14/2024 12:52:38 Date Recorded Body height Provider Name an d Address Organization Details Last Updated DateTime 04/25/2024 170.18 cm Shea Amos [facility] [place] 04/25/2024 13:37:04 Date Recorded Body height Provider Name an d Address Organization Details Last Updated DateTime 06/27/2024 170.18 cm Josefina Kong [facility] Kareem riddle [facility] 06/27/2024 13:17:05 Date Recorded Body height Provider Name an d Address Organization Details Last Updated DateTime 08/31/2024 170.18 cm Donnie Joy [facility] 08/31/2024 17:02:54 Social History Question Answer Notes LastModified by Organizat ion Details LastModified Time Tobacco Smoking Status Former Smoker Murali mora [facility] 10/29/2023 08:58:26 What Is Your Level Of Alcohol Consumption? None Information not available 10/29/2023 Are You Currently Employed? Yes Information not available 03/14/2024 Do You Or Have You Ever Used E-cigarettes Or Vape? 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 1-2 Times Per Week Information not available 03/14/2024 Do You Or Have You Ever Used Smokeless Tobacco? Never Used Smokeless Tobacco [email or web address] Information not available 10/29/2023 How Much Tobacco Do You Smoke? No Information not available 10/29/2023 How Many Years [...] Condition Response Blood Clots / Phlebitis N Heart Problems N HIV or AIDS N Depression or Anxiety N High Blood Pressure N Irregular Heartbeat N MRSA N Emphysema / Chronic Bronchitis N Any Other Significant Medical Issues Y Reaction to General/Local Anesthesia N Weight Gain / Loss N Hepatitis / Jaundice N Kidney / [...] Asthma / Shortness of Breath / Sleep Cytopathology Technologist ea (please specify) N Pulmonary Embolism N Gynecological HistoryNo gynecological history recorded. Obstetrics History GPAL:G 0 P 0 0 0 0 Past Encounters Encounter ID Performer Location Encounter Start Date Encounter Closed Date Diagnosis/Indication Diagnosis SNOMED-CT Code Diagnosis ICD10 Code Diagnosis Note [id number] RASHMI DEL VALLE [facility] Office [address] [place] [phone] 10/29/2023 08:21:29 10/29/2023 09:25:25 Bursitis of left shoulder 2065184082 34496 M75.52 [id number] RASHMI DEL VALLE [address] [address] 11/08/2023 14:12:08 11/08/2023 15:05:40 Strain of rotator cuff of shoulder 585652409 S46.012A [id number] GERTRUDE LUCIA MD [address] [address] 11/11/2023 13:25:14 11/11/2023 14:52:31 Bursitis of left shoulder 0997688317 68604 M75.52 Impingemen t syndrome of left shoulder region 8520747600 08651 M75.42 Pain of ri ght shoulder joint 3027469830 5616478 M25.511 Strain of rotator cuff of shoulder 558875114 S46.011A [id number] RASHMI DEL VALLE [address] [address] 12/02/2023 09:45:14 12/02/2023 11:30:03 Bone spur of left shoulder 8218326476 60130 M25.712 Impingemen t syndrome of left shoulder region 5459961032 28220 M75.42 [id number] RASHMI DEL VALLE [facility] Office [address] [address] 02/11/2024 13:00:48 02/11/2024 13:59:33 Pain of left shoulder joint 3930079846 4307354 M25.512 Rupture of rotator cuff of left shoulder 2813735143 6034640 M75.102 Shoulder pain 86633010 M 25.995 [id number] [facility] [address] [place] [address] 03/14/2024 12:47:57 03/14/2024 13:38:56 Strain of rotator cuff of shoulder 551607190 S46.012A Shoulder pain 35539622 M 25.346 [id number] [facility] [address] [place] [address] 04/25/2024 13:34:23 04/25/2024 13:59:12 Strain of rotator cuff of shoulder 427277591 S46.012D [id number] GERTRUDE LUCIA MD [facility] Office [address] [place] [address] 06/27/2024 13:08:38 06/27/2024 14:00:23 Bursitis of left shoulder 0403734035 75784 M75.52 Bone spur of left shoulder 5219191707 85214 M25.712 Impingemen t syndrome of left shoulder region 9855306628 89309 M75.42 Strain of rotator cuff of shoulder 298310553 S46.012D [id number] Gertrude Lucia MD [place] Office [address] [place] [address] 08/31/2024 17:02:38 08/31/2024 18:04:43 Strain of rotator cuff of shoulder 266902526 S46.011D Health Concerns Section Related Observation LastModified by Organization Detai ls LastModified Time None Recorded Concern Status LastModified by Organization Details LastModified Time None Recorded Advance Directives Directive None Recorded Payers Encounter Date Sequence Insurance Name Policy Number Policy Jin Covered Member ID Jin Member ID Guarantor Name 02/11/2024 1 [place] [id number] Herminio Leonard [id number] Shikha Leonard 03/14/2024 1 [place] [id number] Herminio Leonard [id number] Shikha Leonard 04/25/2024 1 [place] [id number] Herminio Leonard [id number] Shikha Leonard 06/27/2024 1 [place] [id number] Herminio Destini AlbertoHoracio [id number] Shikha Leonard 08/31/2024 1 [place] [id number] Herminio Leonard [id number] Shikha Leonard Notes Date Note Type [...] weeks with Dr. Lucia. RASHMI DEL VALLE [address] [place] [address], [phone], [facility] 02/15/2024 17:37:34 03/14/2024 text/html Shikha comes in today, doing okay. She is very protective of the shoulder that is a bit stiff, so I have encouraged her to wean out of the sling, really work on stretching. Continue physical therapy. Back in 6 weeks. GERTRUDE LUCIA MD [address] [place] [address], [phone], [facility] 03/15/2024 08:20:55 04/25/2024 text/html Shikha is doing great 3 months out, full range of motion, minimal discomfort. Very happy with where she is. Continue PT. Let us add some massage for rhomboid pain and recheck in 2 months. GERTRUDE LUCIA MD [address] [place] [address], [phone], [facility] 04/26/2024 08:24:44 06/27/2024 text/html Shikha comes in today 5 months out, doing remarkably well. She has full range of motion. No pain. She is very happy with her progress. Home exercise program. Recheck via telehealth in 2 months. GERTRUDE LUCIA MD [address] [place] [address], [phone], [facility] 06/28/2024 10:53:21 08/31/2024 text/html Shikha is a oznc-ufr-o-half months out from repair of the rotator cuff, doing great. She has great motion except for internal rotation is improving, but she has no pain. She can continue home exercise program. Follow up p.r.n., [id number] encounter. This visit was conducted as a real time interactive TeleHealth audio & visual via [employer]. The patient was identified by name and date of and consented to this TeleHealth visit. The patient was at their home in [place] and I was at my [place] office. Participants of the telehealth visit included myself and the patient. This was done over the course of 10 minutes including record review. Gertrude Lucia MD [address] [place] [address], [place], [phone], [facility] 09/01/2024 08:04:46 OBGyn Episode No OBEpisode recorded.
--- OUTSIDE RECORDS SUMMARY | 2024-11-10 09:17 | XMS_ITS | Clinical Summary ---
Author Organization [facility] Address [address] [place] [address] Care Team Providers Care Electrophonic Engineer Name Role Phone Yas Alvarez MD Primary Care Provider [phone] Allergies Active Allergy Reactions Criticality Noted Date [...] complete this topic Procedures * Due to [employer] law, this organization might not be sharing negative HIV tests. Procedure Name Priority Date/Time Associated Diagnosis Comments DXA BONE DENSITY STUDY AXIAL (LSSPINE, HIP) (DX: OSTEOPENIA) Routine 09/02/2022 3:30 PM EST MAMMOGRAM SCREENING TOMOSYNTHESIS, BILATERAL Routine 09/02/2022 3:23 PM EST Breast cancer screening by mammogram from Last 3 Months or Most Recently Relevant to Health Maintenance Results * Due to [place] [employer] law, this organization might not be sharing [...] X-RAY ABSORPTIOMETRY (DXA) SCAN: ?? DXA MODEL: [employer] A in fast scan mode RISK FACTORS: [...] BC FEE FOR SERVICE PPO Care Teams Electrophonic Engineer Relationship Specialty Start Date End Date Yas Alvarez MD [address] [place] [address] PCP - General Internal Medicine 08/07/22
--- OUTSIDE RECORDS SUMMARY | 2024-11-10 09:17 | XMS_ITS | Encounter Summary ---
Author Organization [facility] Address [address] [facility] [address] [place] [address] Care Team Providers Care Synchronous Motor Assembler Name Role Phone Generic, Provider Primary Care Provider [phone] Encounter Details Date Type Department Care Team (Late st Contact Info) Description 03/04/2010 [facility] at [address] [address] MRI of the Lumbar Spine-02/28/10 Social History [...] on filedocumented in this encounter Care Teams Synchronous Motor Assembler Relationship Specialty Start Date End Date Generic, Provider [address] [address] PCP - General Generic/Test/No PCP 09/06/12 documented as of this encounter
--- OUTSIDE RECORDS SUMMARY | 2024-11-10 09:17 | XMS_ITS | Encounter Summary ---
Author Organization [facility] Address [address] [facility] [address] [place] [address] Care Team Providers Care Instrument Repair Specialist Name Role Phone No Pcp, Per Patient Primary Care Provider Unaisaac montoya Reason for Visit * Reason Comments Med Refill Encounter Details Date Type Department Care Team (Late st Contact Info) Description 07/21/2024 Refill [facility] [address] [place] [address] Jade Jernigan MD [address] [place] [address] Androgenetic alopecia Social History Tobacco Use Types Packs/Day Years Used Date Smoking Tobacco: Former Cigarettes Smokeless Tobacco: Never Comments Unknown Sex and Gender Information Value Date Recorded Sex Assigned at Not on file Legal Sex Female 3:54 PM EDT Gender Identity Not on file [...] Description 11/13/2024 4:00 PM EDT Office Visit [facility] [address] [place] [address] Jade Jernigan MD [address] [place] [address] documented as of this encounter Visit Diagnoses Diagnosis Androgenetic alopecia documented in this encounter Care Teams Instrument Repair Specialist Relationship Specialty Start Date End Date No Pcp, Per Patient LOGAN PCP - General Contract Mail Carrier 04/24/24 documented as of this encounter
--- OUTSIDE RECORDS SUMMARY | 2024-11-10 09:17 | XMS_ITS | Clinical Summary ---
Author Organization [facility] lin Address [address] [facility] [place] [place] [address] Care Team Providers Care Micro Computer Specialist Name Role Phone Unavailable Primary Care Provider [...] Adults 18 yrs or above (or HM Modifier)([facility]) 1966 Hepatitis C Virus Infection in Adolescents and Adults: Screening (or Modifier) ([facility]) 02/04/1984 [facility] Screening Reminder: Kaylene barahona for all adults ([facility]) 02/04/1984 Tobacco Smoking Cessation: i n Adults excluding Women: Behavioral and Pharmacotherapy Interventions ([facility]) 02/04/1984 Cervical Cancer Screenin 1-65 yrs of age (or Modifier) 1987 Cervical Cancer Screening: P ap every 3 yrs pts age 21-65 1987 Cervical Cancer: Pap Screeni ng with Modifier timing ([facility]) 1987 Cervical Cancer: hrHPV alone or with cotesting Pap for Pts 30-65yrs screening every 5yrs ([facility]) 1987 Colorectal Cancer Screening 45 -75 Yrs (or HM Modifier) 2011 Colorectal Cancer: FLEXIBLE SIGMOIDOSCOPY Screening every 5 yrs 2011 Colorectal Cancer: Fecal Imm unochemical Test (FIT) Annually [facility] 2011 Colorectal Cancer: High-sens itivity gFOBT Screening Annually [facility] 2011 Colorectal Cancer: Stool Col oguard Screening every 3 yrs 2011 Colorectal Cancer:CT Colonog owen Screening every 5 yrs 2011 Lipid Screening: Every 5 yrs for Women aged 45+ (or HM Modifier) ([facility]) 02/04/2012 Breast Cancer: Screening Kaylene ually age 50-74 yrs (or HM Modifier)([facility]) 02/04/2016 Pneumococcal Vaccination Scr eening: Patients 50+ yrs of age ([facility]) (1 of 1 - PCV) 02/04/2016 Zoster/Shingles Vaccine Seri es Screening: Adults aged 18+ yrs (or HM Modifiers)([facility]) (2 of 2) 06/13/2023 04/18/2023 COVID-19 Vaccine Screening: Initial Series and Booster Status ([facility]) ( - 2023- season) 2024 Flu Vaccination: Yearly for ages 18mos through 64 years (or Modifier)([facility]) 02/16/2025 DTaP/Tdap/Td Vaccines ([facility]) (2 - Td or Tdap) 04/17/2019 Medical Devices Not on file Insurance [facility]
--- OUTSIDE RECORDS SUMMARY | 2024-11-10 09:17 | XMS_ITS | Clinical Summary ---
Author Organization [facility] Address [address] [facility] [address] [place] [address] Care Team Providers Care Furniture Removalist Name Role Phone No Pcp, Per Patient Primary Care Provider Unavai lable Allergies Active Allergy Reactions Criticality Noted Date Comments Codeine High 04/24/2024 Medications ibuprofen 100 mg chewable tablet Chew 400 mg every 8 (eight) hours if needed for pain score 1-3. Active minoxidil (Loniten) 2.5 mg tabletIndicatio ns:Androgenetic alopecia Take 1/2 tablet nightly by mouth. 45 tablet 2 04/24/2024 Active finasteride (Proscar) 5 mg tabletIndicatio ns:Androgenetic alopecia TAKE 1 TABLET BY MOUTH DAILY BY MOUTH. 90 tablet 07/21/2024 Active Active Problems No known active problems Social History Tobacco Use Types Packs/Day Years Used Date Smoking Tobacco: Former Cigarettes Smokeless Tobacco: Never Tobacco Cessation:Counseling Given: Not Answered Comments Unknown Sex and Gender Information Value Date Recorded Sex Assigned at Not on file Legal Sex Female 3:54 PM EDT Gender Identity Not on file Sexual Orientation Not on file Plan of Treatment Upcoming Encounters Date Type Department Care Team (Late st Contact Info) Description 11/13/2024 4:00 PM EDT Office Visit [facility] [address] [place] [address] Jade Jernigan MD [address] [place] [address] Health Maintenance Due Date Last Done Comments CT Colonography 1966 Colonoscopy 1966 Colorectal Cancer Screening 1966 FIT-DNA 1966 FIT 1966 FOBT 1966 HIV Screening 1966 Sigmoidoscopy 1966 Hepatitis B Vaccines (1 of 3 - 19+ 3-dose series) 1985 HPV/Cotest 02/04/1996 Pneumococcal Vaccine: 50+ Years (1 of 1 - PCV) 02/04/2016 COVID-19 Vaccine ( season) 2024 07/15/2021, 09/28/2020, 08/31/2020 Depression Screening 07/19/2024 Mammogram 09/02/2024 09/02/2022, 09/02/2022 Influenza Vaccine (Season Ended) 2025 Cervical Cancer Screening 07/27/2025 Pap Smear 07/27/2025 07/27/2022 Diabetes Screening 08/12/2026 08/12/2023, 0 07/27/2022, 06/02/2019, Additional history exists Lipid Panel 08/12/2028 08/12/2023, 03/2023, 02/07/2019 DTaP/Tdap/Td Vaccines (2 - Td or Tdap) 04/17/2029 04/17/2019 Hepatitis A Vaccines [...] on patient's age to complete this topic Insurance [facility] PPO Care Teams Furniture Removalist Relationship Specialty Start Date End Date No Pcp, Per Patient LOGAN PCP - General International Student Advisor 04/24/24
--- OUTSIDE RECORDS SUMMARY | 2024-11-10 09:17 | XMS_ITS | Clinical Summary ---
Author Organization [facility] Address [address] [place] [address] Phone Care Team Providers Care Diesel Engine I Pipe Fitter Name Role Phone Yas Alvarez MD Primary Care Provider [phone] Kike Garcia MD Unavailable [phone] Allergies Active Allergy Reactions Criticality Noted Date [...] procedure Will fax note to: Dr. Lucia [phone]. Will send labs with the note Hyperlipidemia 08/03/2023 Assessment & Plan (10/19/2024 8:25 AM EDT): Recheck lipid panel Low fat diet, weight loss Grief reaction 01/01/2023 Assessment & Plan (01/01/2023 1:54 PM EDT): Low mood due to grief I recommend she speak with a therapist Go to [employer] to find someone, she would prefer to [...] Department Care Team Description 10/26/2024 Orders Only [address] [address] Provider, MD Bud 10/18/2024 2:30 PM EDT Follow-Up [address] [address] Claire John, GRADUATE ASSISTANT Class 1 obesity without serious comorbidity with body mass index (BMI) of 32.0 to 32.9 in adult, unspecified obesity type (Primary Dx); Leg swelling; Vitamin D deficiency, unspecified; Iron deficiency; Prediabetes; Hyperlipidemia, unspecified hyperlipidemia type 08/22/[address] [address] Yas Alvarez MD Medication Refill from Last [...] years) (1 of 1 - PCV) 02/04/2016 COVID-19 VACCINE (4 - 2023- season) 2024 [...] EDT) Sodium 146 135 - 146 mEq/L [facility] Potassium 4.2 3.5 - 5.3 mEq/L [facility] Chloride 107 98 - 107 mEq/L [facility] CO2 30 20 - 31 mEq/L [facility] Anion Gap 9 4 - 14 [facility] Glucose 84 70 - 99 mg/dL [facility] BUN 13 6 - 20 mg/dL [facility] Creatinine 0.8 0.6 - 1.1 mg/dL [facility] GFR 77 >60 mL/min/1.7 3m^2 [facility] Calcium 10.1 8.4 - 10.2 mg/dL [facility] Corrected Calcium 9.6 8.4 - 10.2 mg/dL [facility] Protein, Total 6.8 6.2 - 8.2 g/dL [facility] Alkaline Phosphatase 51 0 - 130 U/L [facility] Albumin 4.6 3.4 - 5.2 g/dL [facility] ALT (SGPT) 16 0 - 40 U/L [facility] AST (SGOT) 14 0 - 33 U/L [facility] Bilirubin, Total 0.5 0.3 - 1.2 mg/dL [facility] 01/17/2024 5:12 PM EDT 01/17/2024 5:12 PM EDT Narrative Resulting Agency Comment No Claire Mcfaddenno GRADUATE ASSISTANT LAB BLOOD ORDERABLES Performing Organization Address City/[facility]/ZIP Co de Phone Number [facility] [address] [facility] [address] * (ABNORMAL) Lipid panel (08/12/2023 11:16 AM EST) Cholesterol 228(H) <200 mg/dL [facility] Triglycerides 178(H) <150 mg/dL [facility] Cholesterol, HDL 51 >40 mg/dL [facility] [employer] [facility] LDL Cholesterol, Calculated 141(H) <129 mg/dL [facility] Cholesterol/HDL Ratio 4.47(H) <4.43 [facility] 08/12/2023 11:1 6 AM EST 08/12/2023 11:16 AM EST Narrative Resulting Agency Comment No Yas Alvarez MD LAB BLOOD ORDERABLES Performing Organization Address City/[facility]/ZIP Co de Phone Number [facility] [address] [facility] [address] * HM COLONOSCOPY FOR RESULT ENTRY ONLY (10/23/2022) Historical Provider [facility] * ThinPrep Pap & HPV (07/27/2022 7:10 PM EST) Clinical Information: Routine exam [facility] LMP: 0 [facility] Prev. PAP: NONE GIVEN [facility] Prev. BX: NONE GIVEN [facility] Source: Cervix [facility] Statement of Adequacy: Satisfactory for evaluation. Endocervical/camara sformation zone component present. [facility] Interpretation/ Result: Negative for intraepithelial lesion or malignancy. [facility] Comment: This Pap test has been evaluated with computer assisted technology. [employer] [facility] Cytotechnologis t: SXA, CT(ASCP) CT screening location: [address] [facility] Comment SEE NOTE [facility] Comment: EXPLANATORY NOTE: The Pap is [...] HPV MRNA E6/E7 Not Detected Not Detected [facility] Comment: Methodology: Social Sciences Lecturer-Mediated Amplification This assay detects E6/E7 viral messenger RNA (mRNA) from 14 high-risk HPV types (16,18,31,33,35,39,45,51,52,56,58,59,66,68). Cervical sources are required for HPV testing. If a vaginal source from a patient who has had a total hysterectomy with removal of cervix was submitted, please contact the testing laboratory for alternative testing options. For additional information, please refer to http://education.[employer]/faq/ZUF992b9 (This link if provided for information/ educational purposes only.) 07/27/2022 7:10 PM EST 07/27/2022 7:10 PM EST Narrative [facility] - 07/31/2022 12:34 PM EST Testing performed at: [facility], [address] [place] [address] ([address], [id number], Air Filler: ANTON TYLER MD Resulting Agency Comment No Yas Alvarez MD LAB BLOOD ORDERABLES Performing Organization Address City/[facility]/ZIP Co de Phone Number [facility] [address] [address], [facility] * Hepatitis C antibody, qualitative (07/27/2022 7:08 PM EST) HepC AB Non Reactive Non Reactive;E quivocal;R eactive [facility] 07/27/2022 7:08 PM EST 07/27/2022 7:08 PM EST Yas Alvarez MD [place] [address] from Last 3 Months or Most Recently Relevant to Health Maintenance Shikha Leonard Personal/Family Self 1965 [address] [id number] Shikha Leonard Personal/Family Self 1965 [address] [phone] Shikha Leonard Personal/Family Self 1965 [address] [facility] Shikha Leonard Personal/Family Self 1965 [address] [facility] [place] [address] Shikha Leonard Personal/Family Self 1965 [address] [facility] [place] [address] Care Teams Diesel Engine I Pipe Fitter Relationship Specialty Start Date End Date Yas Alvarez MD [address] [place] [address] [email or web address] PCP - General Internal Medicine 02/07/19 Kike Garcia MD [address] [place] [phone] [email or web address] Insurance Assigned Provider 10/22/24 Additional Source Comments The information contained in this document represents components of the legal health record. It is not the complete legal health record.[facility]
--- OUTSIDE RECORDS SUMMARY | 2024-11-10 09:17 | XMS_ITS | Clinical Summary ---
Author Organization [facility] Address [address] [place] [address] Care Team Providers Care Steam Finisher Name Role Phone Unknown, Doctor Primary Care [...] Health Maintenance Due Date Last Done Comments Cervical Cancer Screening 1965 Cologuard 1966 Colon Cancer Screening 1965 Colonoscopy 1966 FOBT / Fit Test 1966 HIV Screening 1965 HPV and Pap Smear 1966 Hepatitis C Screening 1966 Pap Smear 1966 Sigmoidoscopy 1966 Hepatitis B Vaccines (1 of 3 - 19+ 3-dose series) 1985 Pneumococcal Vaccine: 50+ Ye ars (1 of 1 - PCV) 02/04/2016 COVID-19 Vaccine ( season) 2024 07/15/2021, 09/28/2020, 08/31/2020 Alcohol/Substance Use Screening 07/19/2024 Depression Screening and Follow-Up 07/19/2024 Social Drivers of Health Kaylene ual Screening 07/19/2024 Mammogram 09/02/2024 09/02/2022 Influenza Vaccine (Season Ended) 2025 DTaP,Tdap,and Td Vaccines (2 - Td or Tdap) 04/17/2029 04/17/2019 RSV Vaccine (60+ years old a nd patients) (1 - 1-dose 75+ series) 2041 Zoster Vaccines Completed 08/04/2023, 04/18/2023 Procedures * Due to [employer] law, this organization might not be sharing negative HIV tests. Procedure Name Priority Date/Time Associated Diagnosis Comments ECG 12-LEAD Routine 11/01/2024 5:14 PM EDT Class 1 obesity with body mass index (BMI) of 34.0 to 34.9 in adult, unspecified obesity type, unspecified whether serious comorbidity present from Last 3 Months Results * Due to [employer] law, this organization might not be sharing negative HIV tests. * ECG 12 lead (11/01/2024 5:14 PM EDT) Ventricular Rate EKG 61 BPM MUSE EKG Atrial Rate 61 BPM MUSE EKG SD Interval 150 ms MUSE EKG QRS Interval 94 ms MUSE EKG QT Interval 402 ms MUSE EKG QTC Interval 404 ms MUSE EKG R [place] 202 degrees MUSE EKG T Wave [place] 163 degrees MUSE EKG 11/01/2024 5:14 PM EDT 11/08/2024 12:41 PM EDT Impressions MUSE EKG - 11/08/2024 12:41 PM EDT limb Lead reversal Normal sinus rhythm Incomplete right bundle branch block T wave abnormality, consider inferior ischemia Abnormal ECG Confirmed by Sahil Burkett ([id number]) on 11/08/2024 12:41:41 PM us Tyrell Lr ECG ORDERABLES Final Result MUSE EKG from Last 3 Months Insurance [facility] PPO/EPO [facility] PPO/EPO Care Teams Steam Finisher Relationship Specialty Start Date End Date Unknown, Doctor Unknown Unknown, LOGAN PCP - General 11/01/24
--- OUTSIDE RECORDS SUMMARY | 2024-11-10 09:17 | XMS_ITS | Encounter Summary ---
Author Organization [facility]: [facility] Address [address] [facility] [address] [place] [address] Care Team Providers Care Sandblaster Paint Sprayer Name Role Phone Generic, Provider Primary Care Provider [phone] Encounter Details Date Type Department Care Team (Late st Contact Info) Description 12/24/2011 [facility] Medicine at [address] [phone] [address] Horner Social History Tobacco Use Types [...] on filedocumented in this encounter Care Teams Sandblaster Paint Sprayer Relationship Specialty Start Date End Date Generic, Provider [address] [address] PCP - General Generic/Test/No PCP 09/06/12 documented as of this encounter
--- OUTSIDE RECORDS SUMMARY | 2024-11-10 09:17 | XMS_ITS | Referral Summary ---
Author Organization [facility]: [facility] & [facility] Care Address [address] [place] [address] [address] [facility] [address] [place] [address] Care Team Providers Care Thaw Shed Heater Tender Name Role Phone Generic, Provider Primary Care [...] of Treatment Not on file Care Teams Thaw Shed Heater Tender Relationship Specialty Start Date End Date Generic, Provider [address] [address] PCP - General Generic/Test/No PCP 09/06/12
--- OUTSIDE RECORDS SUMMARY | 2024-11-10 09:17 | XMS_ITS | Clinical Summary ---
Author Organization [facility]: [facility] Address [address] [place] [address] [address] [facility] 8 [place] [address] Care Team Providers Care Wharf Labourer Name Role Phone Generic, Provider Primary Care [...] age to complete this topic Care Teams Wharf Labourer Relationship Specialty Start Date End Date Generic, Provider [address] [address] PCP - General Generic/Test/No PCP 09/06/12
--- OUTSIDE RECORDS SUMMARY | 2024-11-10 09:17 | XMS_ITS | Encounter Summary ---
Author Organization [facility] Address [address] [place] [address] Phone Care Team Providers Care Student Services Advisor Name Role Phone Yas Alvarez MD Primary Care Provider [phone] Kike Garcia MD Unavailable [phone] Encounter Details Date Type Department Care Team (Late st Contact Info) Description 10/26/2024 Orders Only [facility] [address] [facility] [address] [place] [address] Provider, MD Bud [address] [place] [address] Social History Tobacco Use Types Packs/Day [...] documented as of this encounter Care Teams Student Services Advisor Relationship Specialty Start Date End Date Yas Alvarez MD [address] [place] [phone] [email or web address] PCP - General Internal Medicine 02/07/19 Kike Garcia MD [address] [place] [phone] [email or web address] Insurance Assigned Provider 10/22/24 documented as of this encounter Additional Source Comments The information contained in this document represents components of the legal health record. It is not the complete legal health record.[facility]
== END 2024-11-10 10:22 | disposition home or self-care (01) ==
LOC: HO.HBST 09:06
PROVIDERS: Visit Provider Counselor Mental Health
DX: F43.29 Adjustment disorder with other symptoms (principal)
CPT/HCPCS: 90837

== ENCOUNTER 2024-12-01 08:12 | Outpatient (AMB) | payer BC, SELFPAY ==
--- NOTE | 2024-11-30 15:43 | MHC.OFFVISWM ---
VS Expanded 11/30/24 15:48 Height 5 ft 5 in Weight 193 lb 8 oz BMI 32.2 Body Fat % 41.8 Body Fat Mass 81 Fat Free Mass 112.8 Visceral Fat Rating 15 Body Water % 39.9 Body Water Mass 77.3 Basal Metabolic Rate/Score 1,478 Intake Visit Reasons: TV Pre Op LSG 12/14/24 Allergies codeine Allergy (Mild, Verified 11/30/24 15:53) Unknown Medication List - Last Reconciled 11/30/24 by Tyrell Lr MD diclofenac sodium 75 mg PO 3XW finasteride 5 mg PO BEDTIME furosemide (Lasix) 20 mg PO Q OTHER DAY ondansetron 4 mg PO Q12H pantoprazole 40 mg PO DAILY polyethylene glycol 3350 17 grams PO DAILY sucralfate 10 mL PO BID thiamine HCl (vitamin B1) 100 mg PO DAILY [Vitamin B-12 1 tab DAILY] HPI HPI TV Pre Op LSG 12/14/24: Details: Start time: 8.30am, End time: 9am I spent 25 minutes speaking with the patient on the phone plus an additional 5 minutes reviewing and updating records for a total of 30 minutes HPI Comments Details: Overall weight loss: 18lbs, or 8.5% TBWL Is doing one Celebrate 4:1 shake with 1/2 scoop in almond milk, one ONE bar and 3 meals (5 forkfuls each) Exercise: treadmill for 400 meagan x5/wk PFSH Medical History (Updated 11/18/24 @ 13:42 by Tyrell Lr MD) Hyperlipidemia Lower extremity edema Hypertension GERD (gastroesophageal reflux disease) DJD (degenerative joint disease) Pre-diabetes Pitting edema Obesity Hx of degenerative disc disease Surgical History (Updated 11/30/24 @ 13:26 by Xochitl Reyes RN) History of esophagogastroduodenoscopy (EGD) S/P rotator cuff repair Hx of colonoscopy Hx of breast augmentation Hx of LASIK History of left oophorectomy Hx of tubal ligation Hx of cholecystectomy Hx of umbilical hernia repair Family History (Updated 10/19/24 @ 09:17 by GERARDO Casas) Mother Diabetes Congestive heart failure Father Colon polyp Tachycardia Paternal Grandmother Colon cancer Colostomy care Tachycardia Social History Are you a primary critical care technician to a significant other at home: No Do you presently have visiting nurse or other home services: No Patient Tobacco Use Status: Former Tobacco user Physical Exam Vital Signs: BMI result Body Mass Index 32.2 Telehealth Telehealth Telehealth Platform: Telephone Location of provider rendering services: practice address Location of patient: address on file Patient Identification confirmed using: Name, : Yes Telehealth method: voice only Patient verbally consented to treatment: Yes Patient verbally consented to billing insurance company: Yes Patient informed of any privacy concerns related to visit: Yes Minutes spent on Phone/Video with Pt.: 30 Assessment & Plan Assessment & Plan (1) Obesity: Code(s): E66.9 - Obesity, unspecified Category: Medical Qualifiers: Body mass index: BMI 34.0-34.9 Obesity classification: adult class 1 (BMI 30 - 34.9) Obesity type: due to excess calories Serious obesity comorbidity presence: with serious comorbidity Qualified Code(s): E66.811 - Obesity, class 1; E66.09 - Other obesity due to excess calories; Z68.34 - Body mass index [BMI] 34.0-34.9, adult Plan: 1. Plan for lap sleeve gastrectomy including upper GI endoscopy. All tests has been completed and reviewed and the patient is cleared for the surgery. If diaphragmatic or ventral hernias are present at time of surgery, these will be repaired laparoscopically as well. The surgery does not replace the need to change your lifestlyle which is the cause of the obesity problem. The surgery provides the motivation to try again to change your lifestyle, it reduces the appetite and make the transition to a better lifestyle easier and doubles the amount of weight you would lose compared to doing the lifestyle change without the surgery. You will need to be on a liquid diet with protein shakes for 2 weeks before surgery to maximize weight loss and boost your nutritional status to recover better from surgery and also for the first two weeks after surgery to let the stomach heal before we introduce other foods. After the first 2 weeks we will introduce protein bars and soft foods like scrambled eggs, cottage cheese and yogurt and after the 6th week will introduce meat, fish and cooked vegetables in small amounts. Over time you should be able to eat everything in small amounts. Side effects like nausea, vomiting, heartburn or abdominal pain are not common in the practice unless you are not following in the practice. This operation requires lifetime commitment to following in our practice and communication with me. You will much less weight and experience side effects if you don?t communicate or not following in the practice. Complications are rare and in our practice is about 1/10 of the national average. However, you can develop bleeding that may require transfusion (hasn?t happened for year in the practice), you may from complications (we did not have any deaths in the practice) and infections. Infections are usually a result of breakdown in communication or not understanding or following directions correctly. They are difficult to treat, they can happen during the first 6 weeks, they may require to be in the hospital for weeks or even months, not being able to eat by mouth and you may have drains and surgeries to try and correct the issue. Other risks and complications include possible conversion to an open procedure, leaks, small bowel obstruction, blood clots, cardiac, or pulmonary complications, as predatory animal exterminator complications such as ulcers, insufficient weight loss and vitamin deficiencies. So far she has proven to be an excellent communicator and very compliant with all our directions accomplishing a great weight loss. I believe that she is an excellent candidate and she is ready. 2. Preop prescriptions were provided and explained the purpose of each one. Need to be purchased preop. Start Pantoprazole now as you get it from the pharmacy, 1 pill per day. Sucralfate and Zofran are for after surgery as needed. 3. Bowel prep: please do 7 packets of Miralax mixing each one with a an 8oz glass of water, crystal light, gatorade zero, or propel on 12/12/24 and the same amount on 12/13/24. The Miralax you begin with one packet at a time in 8oz water or crystal light, gatorade zero, or propel as early in the day as you can and you do them back to back until you finish them. Continue the protein shakes during the bowel prep. 4. Needs to purchase 1oz medicine cups . 5. Needs to purchase Children's liquid Tylenol for postop pain control. 6. She needs to stop the Meloxicam as of today 11/30/24. Avoid aspirin, motrin, Advil, Aleve, Ibuprofen, Naproxyn. Tylenol is OK. 7. She needs to purchase the Celebrate multivitamins from the hospital's gift shop. 8. Will do basic preop blood work-up any day between Wednesday12/04/24 and Wednesday12/08/24 fasting for 12 hours and is scheduled to see the Anesthesiologist prior to the day of surgery. 9. Importance of adherence to postop folllow-up and recommendations was underscored and she understands that. 10. Stop food and bars as of Wednesday12/03/24 and continue with 4 Celebrate protein shakes (ONE scoop EACH in 8oz almond milk) at 8am-10am, 11am-1pm, 2pm-4pm, 5pm-7pm and one more Celebrate protein shake with TWO scoops in 10oz of almond milk at 8pm-10pm 11. No soups, broths or V8 12. The patient's medical history has been reviewed and they are considered low risk for post op DVT and therefore DVT prophylaxis is not considered necessary. Travel after surgery was reviewed. The patient has not disclosed any travel plans during the first 30 days after surgery and they have been advised that within the first 30 days after surgery any bus, plane, train or car travel over 2 hours in duration is contraindicated due to the possibility of developing blood clots from immobility. Any travel, needs to include periods of ambulation of 10 minutes in duration every 2 hours. Patient was instructed to discuss any plans for travel during this period with their bariatric surgeon. 13. Please take at the day of surgery the following medications: NONE 14. Stop any control pills and don't use them for one month after surgery 15. Absolutely no smoking or vaping, or marijuana until the surgery and for at least the first 4 weeks. Only nicotine patches are allowed. 16. Send me weight measurements on Wednesday12/02/24, Wednesday12/09/24 and then on 12/14/24, the day of surgery before you go to the hospital. 17. Avoid any steroids by mouth for any reason. Let me know if someone prescribes them to you 18. These instructions supersede anything else you read in the handbook, anything you watched in videos or classes or you were told by any other provider. If there is any conflict, you follow the above instructions and nothing else. 19. As of tomorrow, please check your blood pressure daily in the morning. If your blood pressure is: Below 120/70: do not take the Lasix 121/71 to 130/80: take HALF Lasix Over 131/81: take the whole Lasix Orders: Orders Complete Blood Count Auto Diff 11/30/24 E66.09 - Other obesity due to excess calories, E66.811 - Obesity, class 1, Z68.32 - Body mass index [BMI] 32.0-32.9, adult, Z68.34 - Body mass index [BMI] 34.0-34.9, adult C Reactive Protein 11/30/24 E66.09 - Other obesity due to excess calories, E66.811 - Obesity, class 1, Z68.32 - Body mass index [BMI] 32.0-32.9, adult, Z68.34 - Body mass index [BMI] 34.0-34.9, adult Lipid Panel 11/30/24 E66.09 - Other obesity due to excess calories, E66.811 - Obesity, class 1, Z68.32 - Body mass index [BMI] 32.0-32.9, adult, Z68.34 - Body mass index [BMI] 34.0-34.9, adult Comprehensive Met. Panel 11/30/24 E66.09 - Other obesity due to excess calories, E66.811 - Obesity, class 1, Z68.32 - Body mass index [BMI] 32.0-32.9, adult, Z68.34 - Body mass index [BMI] 34.0-34.9, adult TSH reflex Free T4 11/30/24 E66.09 - Other obesity due to excess calories, E66.811 - Obesity, class 1, Z68.32 - Body mass index [BMI] 32.0-32.9, adult, Z68.34 - Body mass index [BMI] 34.0-34.9, adult Prothrombin Time INR 11/30/24 E66.09 - Other obesity due to excess calories, E66.811 - Obesity, class 1, Z68.32 - Body mass index [BMI] 32.0-32.9, adult, Z68.34 - Body mass index [BMI] 34.0-34.9, adult Type and Screen 11/30/24 E66.09 - Other obesity due to excess calories, E66.811 - Obesity, class 1, Z68.32 - Body mass index [BMI] 32.0-32.9, adult, Z68.34 - Body mass index [BMI] 34.0-34.9, adult Partial Thromboplastin Time 11/30/24 E66.09 - Other obesity due to excess calories, E66.811 - Obesity, class 1, Z68.32 - Body mass index [BMI] 32.0-32.9, adult, Z68.34 - Body mass index [BMI] 34.0-34.9, adult Insulin 11/30/24 E66.09 - Other obesity due to excess calories, E66.811 - Obesity, class 1, Z68.32 - Body mass index [BMI] 32.0-32.9, adult, Z68.34 - Body mass index [BMI] 34.0-34.9, adult Hemoglobin A1c 11/30/24 E66.09 - Other obesity due to excess calories, E66.811 - Obesity, class 1, Z68.32 - Body mass index [BMI] 32.0-32.9, adult, Z68.34 - Body mass index [BMI] 34.0-34.9, adult Medications: New sucralfate 10 mL PO BID 600 mL 2RF K21.9 - Gastro-esophageal reflux disease without esophagitis ondansetron Only take one every 12 hours as needed if you have nausea 4 mg PO Q12H 20 tabs 0RF nausea and vomiting R11.0 - Nausea polyethylene glycol 3350 Mix each measuring cup with 8oz of water, Crystal light, or Gatorade zero, or Propel and do 7 measuring cups on 12/12/24 and another 7 measuring cups on 12/13/24 17 grams PO DAILY 238 grams 0RF Z01.818 - Encounter for other preprocedural examination pantoprazole 40 mg PO DAILY 90 tabs 0RF K21.9 - Gastro-esophageal reflux disease without esophagitis
[2024-11-30 15:48] VITALS: BMI 32.2
--- OUTSIDE RECORDS SUMMARY | 2024-12-01 08:19 | XMS_ITS | Clinical Summary ---
Author Organization [facility] Address [address] [facility] [place] [address] Care Team Providers Care Rhythmic Gymnastics Coach Name Role Phone Unavailable Primary Care Provider [...] Adults 18 yrs or above (or HM Modifier)([facility]) 02/04/1984 Hepatitis C Virus Infection in Adolescents and Adults: Screening (or Modifier) ([facility]) 02/04/1984 [facility] Screening Reminder: Kaylene barahona for all adults ([facility]) 02/04/1984 Tobacco Smoking Cessation: i n Adults excluding Women: Behavioral and Pharmacotherapy Interventions ([facility]) 02/04/1984 Cervical Cancer Screenin 1-65 yrs of age (or Modifier) 1987 Cervical Cancer Screening: P ap every 3 yrs pts age 21-65 1987 Cervical Cancer: Pap Screeni ng with Modifier timing ([facility]) 1987 Cervical Cancer: hrHPV alone or with cotesting Pap for Pts 30-65yrs screening every 5yrs ([facility]) 1987 Colorectal Cancer Screening 45 -75 Yrs (or HM Modifier) 2011 Colorectal Cancer: FLEXIBLE SIGMOIDOSCOPY Screening every 5 yrs 2011 Colorectal Cancer: Fecal Imm unochemical Test (FIT) Annually [facility] 2011 Colorectal Cancer: High-sens itivity gFOBT Screening Annually [facility] 2011 Colorectal Cancer: Stool Col oguard Screening every 3 yrs 2011 Colorectal Cancer:CT Colonog owen Screening every 5 yrs 2011 Lipid Screening: Every 5 yrs for Women aged 45+ (or HM Modifier) ([facility]) 02/04/2012 Breast Cancer: Screening Kaylene ually age 50-74 yrs (or HM Modifier)([facility]) 02/04/2016 Pneumococcal Vaccination Scr eening: Patients 50+ yrs of age ([facility]) (1 of 1 - PCV) 02/04/2016 Zoster/Shingles Vaccine Seri es Screening: Adults aged 18+ yrs (or HM Modifiers)([facility]) (2 of 2) 06/13/2023 04/18/2023 COVID-19 Vaccine Screening: Initial Series and Booster Status ([facility]) ( - 2023- season) 2024 Flu Vaccination: Yearly for ages 18mos through 64 years (or Modifier)([facility]) 02/16/2025 DTaP/Tdap/Td Vaccines ([facility]) (2 - Td or Tdap) 04/17/2019 Medical Devices Not on file Insurance [facility]
--- OUTSIDE RECORDS SUMMARY | 2024-12-01 08:19 | XMS_ITS | Clinical Summary ---
Author Organization [facility] Address [address] [place] [address] Care Team Providers Care Auto Carrier Driver Name Role Phone Yas Alvarez MD Primary Care Provider [phone] Allergies Active Allergy Reactions Criticality Noted Date [...] complete this topic Procedures * Due to [place] law, this organization might not be sharing negative HIV tests. Procedure Name Priority Date/Time Associated Diagnosis Comments DXA BONE DENSITY STUDY AXIAL (LSSPINE, HIP) (DX: OSTEOPENIA) Routine 09/02/2022 3:30 PM EST MAMMOGRAM SCREENING TOMOSYNTHESIS, BILATERAL Routine 09/02/2022 3:23 PM EST Breast cancer screening by mammogram from Last 3 Months or Most Recently Relevant to Health Maintenance Results * Due to [place] [employer] law, this organization might not be sharing [...] X-RAY ABSORPTIOMETRY (DXA) SCAN: ?? DXA MODEL: [employer] A in fast scan mode RISK FACTORS: [...] BC FEE FOR SERVICE PPO Care Teams Auto Carrier Driver Relationship Specialty Start Date End Date Yas Alvarez MD [address] [place] [address] PCP - General Internal Medicine 08/07/22
--- OUTSIDE RECORDS SUMMARY | 2024-12-01 08:20 | XMS_ITS | Encounter Summary ---
Author Organization [facility] Address [address] [place] [address] Care Team Providers Care Rig Site Engineer Name Role Phone Generic, Provider Primary Care Provider [phone] Encounter Details Date Type Department Care Team (Late st Contact Info) Description 03/04/2010 [facility] [place] [address] [address] [facility] [place] [address] MRI of the Lumbar Spine-02/28/10 Social History Tobacco Use Types Packs/Day Years Used Date Smoking Tobacco: Every Day Cigarettes Comments:intermittent > 10 y ears Alcohol Use Standard Drinks/Week Comments Yes 0 (1 standard drink = 0.6 oz pur e alcohol) occasionally Comments Unknown Sex and Gender Information Value Date Recorded Sex Assigned at Not on file Legal Sex Female 4:12 PM EST Gender Identity Not on file Sexual Orientation Not on file 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
--- OUTSIDE RECORDS SUMMARY | 2024-12-01 08:20 | XMS_ITS | Encounter Summary ---
Author Organization [facility] Address [address] [place] [address] Care Team Providers Care Mental Health Practitioner Name Role Phone No Pcp, Per Patient Primary Care Provider Unavai lable Reason for Visit * Reason Comments Med Refill Encounter Details Date Type Department Care Team (Late st Contact Info) Description 07/21/2024 Refill [facility] Dermatology [address] [place] [address] Jade Jernigan MD [address] [place] [id number] Androgenetic alopecia Social History Tobacco Use Types [...] Care Team (Late st Contact Info) Description 05/28/2025 12:45 PM EST Telemedicine [facility] Dermatology [address] [place] [address] Jade Jernigan MD [address] [place] [address] documented as of this encounter Visit Diagnoses Diagnosis Androgenetic alopecia documented in this encounter Care Teams Mental Health Practitioner Relationship Specialty Start Date End Date No Pcp, Per Patient [place] PCP - General Community Relations Representative 04/24/24 documented as of this encounter
--- OUTSIDE RECORDS SUMMARY | 2024-12-01 08:20 | XMS_ITS | Encounter Summary ---
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
--- OUTSIDE RECORDS SUMMARY | 2024-12-01 08:20 | XMS_ITS | Referral Summary ---
Author Organization [facility] Address [address] [place] [address] Care Team Providers Care Professor Of Chemistry Name Role Phone Unknown, Doctor Primary Care [...] Care Team (Late st Contact Info) Description 12/08/2024 8:30 AM EDT Appointment [facility] Cardiac Ultrasound [address] [place] [id number] Procedures * Due to [place] state law, this organization might not be sharing negative HIV tests. Procedure Name Priority Date/Time Associated Diagnosis Comments ECG 12-LEAD Routine 11/01/2024 5:14 PM EDT Class 1 obesity with body mass index (BMI) of 34.0 to 34.9 in adult, unspecified obesity type, unspecified whether serious comorbidity present from Last 3 Months Results * Due to [facility] law, this organization might not be sharing negative HIV tests. * ECG 12 lead (11/01/2024 5:14 PM EDT) Ventricular Rate EKG 61 BPM MUSE EKG Atrial Rate 61 BPM MUSE EKG OR Interval 150 ms MUSE EKG QRS Interval 94 ms MUSE EKG QT Interval 402 ms MUSE EKG QTC Interval 404 ms MUSE EKG R [place] 202 degrees MUSE EKG T Wave [place] 163 degrees MUSE EKG 11/01/2024 5:14 PM EDT 11/08/2024 12:41 PM EDT Impressions MUSE EKG - 11/08/2024 12:41 PM EDT limb Lead reversal Normal sinus rhythm Incomplete right bundle branch block T wave abnormality, consider inferior ischemia Abnormal ECG Confirmed by Sahil Burkett ([id number]) on 11/08/2024 12:41:41 PM us Tyrell Lr ECG ORDERABLES Final Result MUSE EKG from Last 3 Months Insurance [facility] PPO/EPO [facility] PPO/EPO Care Teams Professor Of Chemistry Relationship Specialty Start Date End Date Unknown, Doctor Unknown Unknown, LOGAN PCP - General 11/01/24
--- OUTSIDE RECORDS SUMMARY | 2024-12-01 08:20 | XMS_ITS | Clinical Summary ---
Author Organization [facility] Address [address] [facility] [facility] [address] [place] [address] Care Team Providers Care Grout Machine Operator Name Role Phone No Pcp, Per Patient Primary Care Provider Unavai lable Allergies Active Allergy Reactions Criticality Noted Date Comments Codeine High 04/24/2024 Medications ibuprofen 100 mg chewable tablet Chew 400 mg every 8 (eight) hours if needed for pain score 1-3. Active minoxidil (Loniten) 2.5 mg tabletIndicatio ns:Androgenetic alopecia Take 1/2 tablet nightly by mouth. 45 tablet 2 4 Active Additional Information Patient not taking.Reported on 11/13/2024 finasteride (Proscar) 5 mg tabletIndicatio ns:Androgenetic alopecia TAKE 1 TABLET BY MOUTH DAILY BY MOUTH. 90 tablet 5 Active Active Problems No known active problems Encounters Date Type Department Care Team Description 11/13/2024 4:00 PM EDT Office Visit [facility] Dermatology [address] [place] [address] Jade Jernigan MD Androgenetic alopecia (Primary Dx) 11/13/2024 Travel from Last 3 Months Social History Tobacco Use Types Packs/Day Years [...] Info) Description 05/28/2025 12:45 PM EST Telemedicine [facility] Dermatology [address] [place] [address] Jade Jernigan MD [address] [place] [address] Health Maintenance Due Date Last Done Comments CT Colonography 1966 Colonoscopy 1966 Colorectal Cancer Screening 1966 FIT-DNA 1966 FIT 1966 FOBT 1966 HIV Screening 1966 Sigmoidoscopy 1966 Hepatitis B Vaccines (1 of 3 - 19+ 3-dose series) 1985 HPV/Cotest 02/04/1996 Pneumococcal Vaccine: 50+ Years (1 of 1 - PCV) 02/04/2016 COVID-19 Vaccine ( - season) 2024 07/15/2021, 09/28/2020, 08/31/2020 Depression Screening [...] patient's age to complete this topic Insurance [facility] PPO Care Teams Grout Machine Operator Relationship Specialty Start Date End Date No Pcp, Per Patient [place] PCP - General Polysomnography Technologist 04/24/24
--- OUTSIDE RECORDS SUMMARY | 2024-12-01 08:20 | XMS_ITS | Clinical Summary ---
Author Organization [facility] Address [address] [place] [address] Care Team Providers Care Digital Marketing Officer Name Role Phone Unknown, Doctor Primary Care [...] Info) Description 12/08/2024 8:30 AM EDT Appointment [facility] Building Cardiac Ultrasound [address], [place] [id number] Health Maintenance Due Date Last Done Comments [...] Completed 08/04/2023, 04/18/2023 Procedures * Due to [place] flaveit law, this organization might not be sharing negative HIV tests. Procedure Name Priority Date/Time Associated Diagnosis Comments ECG 12-LEAD Routine 11/01/2024 5:14 PM EDT Class 1 obesity with body mass index (BMI) of 34.0 to 34.9 in adult, unspecified obesity type, unspecified whether serious comorbidity present from Last 3 Months Results * Due to [place] flaveit law, this organization might not be sharing negative HIV tests. * ECG 12 lead (11/01/2024 5:14 PM EDT) Ventricular Rate EKG 61 BPM MUSE EKG Atrial Rate 61 BPM MUSE EKG TN Interval 150 ms MUSE EKG QRS Interval 94 ms MUSE EKG QT Interval 402 ms MUSE EKG QTC Interval 404 ms MUSE EKG R [place] 202 degrees MUSE EKG T Wave [place] 163 degrees MUSE EKG 11/01/2024 5:14 PM EDT 11/08/2024 12:41 PM EDT Impressions MUSE EKG - 11/08/2024 12:41 PM EDT limb Lead reversal Normal sinus rhythm Incomplete right bundle branch block T wave abnormality, consider inferior ischemia Abnormal ECG Confirmed by Sahil Burkett ([id number]) on 11/08/2024 12:41:41 PM us Tyrell Lr ECG ORDERABLES Final Result MUSE EKG from Last 3 Months Insurance [place] PPO/EPO [facility] PPO/EPO Care Teams Digital Marketing Officer Relationship Specialty Start Date End Date Unknown, Doctor Unknown Unknown, LOGAN PCP - General 11/01/24
--- OUTSIDE RECORDS SUMMARY | 2024-12-01 08:21 | XMS_ITS | Referral Summary ---
Author Organization [facility]: [facility] Care Address [address] [facility] [address] [place] [address] Care Team Providers Care Balance Truing Inspector Name Role Phone Generic, Provider Primary Care Provider [id number] [id number] Allergies Active Allergy Reactions Criticality Noted Date Comments Codeine 11/15/2009 Medications buPROPion SR (WELLBUTRIN-SR) 100 MG PO TB12 Take 1 Tab by mouth DAILY. 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
--- OUTSIDE RECORDS SUMMARY | 2024-12-01 08:21 | XMS_ITS | Clinical Summary ---
Author Organization [facility]: [facility] Care Address [address] [place] [address] [address] [place] [address] Care Team Providers Care Jackhammer Splitter Operator Name Role Phone Generic, Provider Primary Care Provider [id number] [id number] Allergies Active Allergy Reactions Criticality Noted Date Comments Codeine 11/15/2009 Medications buPROPion SR (WELLBUTRIN-SR) 100 MG PO TB12 Take 1 Tab by mouth DAILY. 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
--- OUTSIDE RECORDS SUMMARY | 2024-12-01 08:21 | XMS_ITS | Data Portability ---
Author Organization [facility] Address [address] [place] [address] Care Team Providers Care Frickertron Checker Name Role Phone JULIUS FLOREZ Primary Care Provider Assessment No assessment recorded. Plan of Treatment Reminders Order Date Submit Date Provider Last Modified By Organization Details Last Modified Time Details Appointments None recorded. Lab None recorded. Referral physical therapist referral - S/P Arthrosco pic Cuff Repair-Le ft Shoulder 2023 024 [email or web address] [facility]), [address], [place], [address], 4 11:14:48 physical therapist referral - S/P Arthrosco pic Cuff Repair-Le ft Shoulder 2023 024 [facility] 2 [facility]), [address], [place], [address], 4 13:38:56 physical therapist referral - S/P LEFT Arthrosco pic Cuff Repair 2023 024 LAURA [facility]), [address], [place], [address], 4 15:27:23 Procedures None recorded. Surgeries None recorded. Imaging None recorded. Medication Orders Celebrex 200 mg capsule 2023 024 [email or web address] [facility][id number], [address] [place], [address], 13:26:02 tramadol 50 mg tablet 2023 024 [id number], [address] [place], [address], 13:37:14 tramadol 50 mg tablet 2023 024 [facility][id number], [address] [place], [address], 13:37:14 Patient TargetsNo targets recorded. Patient InstructionsNo instructions recorded. Reason for Referral Physical Therapist Referral for Rupture of rotator cuff of left shoulder POST OP REHAB S/P LEFT Arthroscopic Cuff Repair IF BICEP TENODESIS: NO ACTIVE ELBOW FLEXION X 3WEEKS NO RESISITED ELBOW FLEXION X 8 WEEKS Referring Physician: Saundra Chase, Physician Piano Builder, Encounter Date: 02/11/2024 Physical Therapist Referral for Pain of shoulder region POST OP REHAB S/P Arthroscopic Cuff Repair-Left Shoulder IF BICEP TENODESIS: NO ACTIVE ELBOW FLEXION X 3WEEKS NO RESISITED ELBOW FLEXION X 8 WEEKS Referring Physician: Paul Lucia, Orthopedic Surgery, Encounter Date: 03/14/2024 Physical Therapist Referral for Strain of rotator cuff of shoulder POST OP REHAB S/P Arthroscopic Cuff Repair-Left Shoulder IF BICEP TENODESIS: NO ACTIVE ELBOW FLEXION X 3WEEKS NO RESISITED ELBOW FLEXION X 8 WEEKS Referring Physician: Paul Lucia, Orthopedic Surgery, Encounter Date: 04/25/2024 Problems No Known Problems Procedures Surgical History Date Name Laterality Status Provider Name and Address Organization Details Recorded Time 4 Orthopaedic Surgery completed Donnie Joy [facility] 02/11/2024 13:20:10 5 Other completed Murali Bowie [facility] 10/29/2023 08:58:29 Imaging Results None recorded. Procedure Notes None recorded. Medical Equipment None Reported. Allergies Allergen ID Allergen Name Allergen Category Reaction Reaction Severity Criticality Documentation Date Start Date Code Code System Note Provider Name and Address Organization Details Recorded Time [id number] codeine medicatio n Not available Not available Not available 10/29/2023 2670 RxNorm Murali mora [facility] 08:58:21 Medications Name Sig Start Date Stop [...] Updated DateTime 02/11/2024 170.18 cm Donnie Joy [facility] 02/11/2024 13:19:44 Date Recorded Body height Body mass index (BMI) Body weight Provider Name and Address Organization Details Last Updated DateTime 03/14/2024 170.18 cm 28.2 kg/m2 78503.63 g Shea [facility] 03/14/2024 12:52:38 Date Recorded Body height Provider Name an d Address Organization Details Last Updated DateTime 04/25/2024 170.18 cm Shea Amos [facility] 04/25/2024 13:37:04 Date Recorded Body height Provider Name an d Address Organization Details Last Updated DateTime 06/27/2024 170.18 cm Josefina Kong [place] [facility] 06/27/2024 13:17:05 Date Recorded Body height Provider Name an d Address Organization Details Last Updated DateTime 08/31/2024 170.18 cm Donnie Joy [facility] 08/31/2024 17:02:54 Social History Question Answer Notes LastModified by Organizat ion Details LastModified Time Tobacco Smoking Status Former Smoker Murali mora [place] [facility] 10/29/2023 08:58:26 How Many Times Per Week Do You Exercise? 1-2 Times Per Week Information not available 03/14/2024 How Much Tobacco Do You Smoke? No [email or web address] Information not available 10/29/2023 How Many Years Have You Smoked Tobacco? 10 Information not available 03/14/2024 Sex: Unknown Functional Status Question Answer Note LastModified by Organizat ion Details LastModified Time What is your level of alcohol consumption? None Information not available 10/29/2023 Do you or have you ever used smokeless tobacco? Never used smokeless tobacco [email or web address] Information not available 10/29/2023 Are you currently employed? 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 Never used electronic cigarettes [email or web address] Information not available 10/29/2023 What is your exercise level? Occasional Information [...] Asthma / Shortness of Breath / Sleep Administrative Assistant Receptionist ea (please specify) N Pulmonary Embolism N Gynecological HistoryNo gynecological history recorded. Obstetrics History GPAL:G 0 P 0 0 0 0 Past Encounters Encounter ID Performer Location Encounter Start Date Encounter Closed Date Diagnosis/Indication Diagnosis SNOMED-CT Code Diagnosis ICD10 Code Diagnosis Note [id number] RASHMI DEL VALLE [facility] Office [address] [place] [id number] 10/29/2023 08:21:29 10/29/2023 09:25:25 Bursitis of left shoulder 1967099977 33290 M75.52 [id number] RASHMI DEL VALLE [address] [address] 11/08/2023 14:12:08 11/08/2023 15:05:40 Strain of rotator cuff of shoulder 800289323 S46.012A [id number] PAUL LUCIA MD [address] [address] 11/11/2023 13:25:14 11/11/2023 14:52:31 Bursitis of left shoulder 1973566638 09369 M75.52 Impingemen t syndrome of left shoulder region 9479933936 45631 M75.42 Pain of ri ght shoulder joint 2823848005 1314488 M25.511 Strain of rotator cuff of shoulder 152187161 S46.011A [id number] RASHMI DEL VALLE [facility] Office [address] [place] [id number] 12/02/2023 09:45:14 12/02/2023 11:30:03 Bone spur of left shoulder 3115623611 07624 M25.712 Impingemen t syndrome of left shoulder region 1616165029 54059 M75.42 [id number] RASHMI DEL VALLE [facility] Office [address] [address] 02/11/2024 13:00:48 02/11/2024 13:59:33 Pain of left shoulder joint 7279476959 1920358 M25.512 Rupture of rotator cuff of left shoulder 7354835973 7121666 M75.102 Pain of oulder region 22322897 M25.711 [id number] [facility] [address] [place] [address] 03/14/2024 12:47:57 03/14/2024 13:38:56 Strain of rotator cuff of shoulder 099441923 S46.012A Pain of [facility] region 45794942 M25.583 [id number] PAUL LUCIA [facility] [address] [place] [address] 04/25/2024 13:34:23 04/25/2024 13:59:12 Strain of rotator cuff of shoulder 788074847 S46.012D [id number] PAUL LUCIA MD [facility] am Office [address] [address] 06/27/2024 13:08:38 06/27/2024 14:00:23 Bursitis of left shoulder 0646668510 04115 M75.52 Bone spur of left shoulder 9984247630 06964 M25.712 Impingemen t syndrome of left shoulder region 8745018863 04239 M75.42 Strain of rotator cuff of shoulder 934529179 S46.012D [id number] Paul Lucia MD [place] [facility] [address] [place] [id number] 08/31/2024 17:02:38 08/31/2024 18:04:43 Strain of rotator cuff of shoulder 043340662 S46.011D Health Concerns Section Related Observation LastModified by Organization Detai ls LastModified Time None Recorded Concern Status LastModified by Organization Details LastModified Time None Recorded Advance Directives Directive None Recorded Payers Insurance Date Sequence Insurance Name Policy Number Policy Jin Covered Member ID Jin Member ID Guarantor Name 10/22/2023 1 [place] [id number] Herminio Leonard [id number] Shikha Leonard 10/02/2024 1 [place] [id number] Herminio Leonard [id number] Shikha Leonard Notes Date Note Type Note [...] weeks with Dr. Lucia. RASHMI DEL VALLE [address] [place] [address], [phone], [facility] 02/15/2024 17:37:34 03/14/2024 text/html Shikha comes in today, doing okay. She is very protective of the shoulder that is a bit stiff, so I have encouraged her to wean out of the sling, really work on stretching. Continue physical therapy. Back in 6 weeks. PAUL LUCIA MD [address] [place] [address], [phone], [facility] 03/15/2024 08:20:55 04/25/2024 text/html Shkiha is doing great 3 months out, full range of motion, minimal discomfort. Very happy with where she is. Continue PT. Let us add some massage for rhomboid pain and recheck in 2 months. PAUL LUCIA MD [address] [place] [address], [phone], [facility] 04/26/2024 08:24:44 06/27/2024 text/html Shikha comes in today 5 months out, doing remarkably well. She has full range of motion. No pain. She is very happy with her progress. Home exercise program. Recheck via telehealth in 2 months. PAUL LUCIA MD [address] [place] [address], [phone], [facility] 06/28/2024 10:53:21 08/31/2024 text/html Shikha is a xsbw-lka-d-half months out from repair of the rotator cuff, doing great. She has great motion except for internal rotation is improving, but she has no pain. She can continue home exercise program. Follow up p.r.n., [id number] encounter. This visit was conducted as a real time interactive TeleHealth audio & visual via [employer]. The patient was identified by name and date of and consented to this TeleHealth visit. The patient was at their home in [place] and I was at my [place] office. Participants of the telehealth visit included myself and the patient. This was done over the course of 10 minutes including record review. Paul Lucia MD [address] [place] [address], [phone], [facility] 09/01/2024 08:04:46 OBGyn Episode No OBEpisode recorded.
== END 2024-12-01 15:02 | disposition home or self-care (01) ==
LOC: HO.HBS 08:12
PROVIDERS: Visit Provider Surgery
DX: E66.811 Obesity, class 1 (principal); E66.09 Other obesity due to excess calories; Z68.34 Body mass index [BMI] 34.0-34.9, adult
CPT/HCPCS: 99214

== ENCOUNTER 2024-12-14 08:39 | Inpatient (IN) | payer BC, SELFPAY ==
[2024-11-30 13:46] VITALS: BMI 32.1
[2024-12-14] VITALS (14 sets, daily range): BP systolic 105–159; BP diastolic 53–84; PULSE 68–90; RESP 12–18; TEMP 36.1–36.9; O2SAT 92–100; BMI 31.4
--- NOTE | 2024-12-14 08:32 | MHC.SHP ---
Pre-Procedural Eval Section A - 24 Hr Update-Section A only Date of Service: 12/14/24 The patient is an INPATIENT: Yes The patient has been examined within 24 hours of the surgical procedure. The History & Physical has been completed within 30 days and I have reviewed it.: Yes Section B - Complete if H&P > 30 days Chief Complaint: Obesity, unspecified Relevant Family History (Specify if Yes): No Relevant Social History: None Present Medications: None Medical History: No relevant PMH History of Previous Operations: No relevant previous surgery Allergies: Allergies Allergy/AdvReac Type Severity Reaction Status Date / Time codeine Allergy Mild Shakiness, Verified 12/14/24 08:05 Vomiting Review of Systems Sugical H&P ROS: Negative: Constitution, Cardiovascular, Respiratory, Neurological, Psychiatric, Hem-Onc, Allergic/Immunologic, Gastrointestinal, Genitourinary, Musculoskeletal, Integumentary, Endocrine and Eyes/Ears/Nose/Throat Exam Surgical H&P Exam: Normal: HEENT, Normal: Heart, Normal: Lungs, Normal: Extremities, Normal: Abdomen, Normal: Skin and Normal: Neurological Plan Diagnosis/Plan: Unchanged I have reviewed the history and physical and performed a pertinent physical examination on my patient. No changes have occurred unless specified. Time Spent With Patient Time: Total time managing care of this patient today ____ minutes.
[2024-12-14] MEDS: Lactated Ringers 1,000 ML 100 ML IVCONT ×3 (08:40→22:02)
[2024-12-14] MEDS: Aprepitant 32 MG/4.4 ML VIAL IVPUSH (08:40)
[2024-12-14] MEDS: Lactated Ringers 1,000 ML 999 ML IV (08:40)
--- NOTE | 2024-12-14 08:42 | PM.OP ---
Brief Operative Note Date of Service: 12/14/24 Pre-op diagnosis: Severe obesity with comorbidities (see below) Post-op diagnosis: same (and gastric diverticulum) Procedure: INITIAL PATIENT BMI ON PRESENTATION AT OUR OFFICE: 34.2 kg/m2 LAST BMI BEFORE SURGERY: 31.5 kg/m2 COMORBIDITIES: GERD, hypertension, DJD, hair loss, liver steatosis ?The patient presented to the Weight Management Program with significant obesity that was negatively impacting the patient's comorbidities as listed above.? The program is a phased program with a special focus on preoperative medical weight management to promote substantial weight loss and prepare the patients for the second phase of the program: bariatric surgery. The patient participated in an intensive weekly lifestyle ?intervention and exercise program during which the patient ?has lost between the initial office visit and the last preoperative visit 22.2 lbs, or 10.5% of initial actual body weight. It was deemed appropriate for the patient to now have bariatric surgery. In light of the current Covid-19 pandemic and the well documented strong association of obesity and increased risk of worse outcomes if infected with Covid-19 (REFERENCES:https://pubmed.ncbi.nlm.nih.gov/29704488/,?https://pubmed.ncbi.nlm.nih.gov/58605877/), any delay in undergoing bariatric surgery may lead to the patient's worsening health condition and increased?risk of more severe Covid-19 disease if infected. In addition a recent?study from [facility] published in [facility] on 07/14/2021 ([email or web address]:/[email or web address]) found that, among patients with obesity, substantial weight loss achieved with surgery was associated with improved outcomes of COVID-19 infection. The findings suggest that obesity can be a modifiable risk factor for the severity of COVID-19 infection. In addition, the patient met the BMI-criteria for bariatric surgery based on the BMI on initial presentation. The patient should not be penalized for achieving such weight loss because ?it is not sustainable long-term without surgical intervention and it was achieved in preparation for bariatric surgery ?under my direction and based on my published research ([email or web address]).[email or web address] and?https://www.soard.org/article/[email or web address](48)99230-X/pdf) ?that a 10% preoperative weight loss improves long-term weight loss after surgery and reduces perioperative complications.? Insurance carriers such as [facility] have endorsed my recommendations ?and have included in their policies criteria to include a 10% preoperative weight loss requirement. PROCEDURE: Esophago-gastroscopy, laparoscopic resection of gastric divericulum, laparoscopic lysis of adhesions, laparoscopic sleeve gastrectomy and laparoscopic gastropexy INDICATIONS: This is a 59 year-old female who was electively scheduled for laparoscopic, possibly open sleeve gastrectomy. The risks and complications of the procedure were discussed with the patient in advance, particularly the possibility of ; pulmonary embolism; staple line leak; bleeding; GERD; cardiac, pulmonary, or renal complications; as well as long-term problems such as insufficient weight loss, vitamin deficiency, strictures, or ulcers. The patient understood all the risks, and was in agreement to proceed with surgery. DESCRIPTION OF PROCEDURE: After informed consent was obtained from the patient, the patient was given preoperative antibiotics, and was transferred to the operating room. After successful induction of general anesthesia, pneumatic compression devices were placed on both lower extremities. An upper endoscopy was performed next. The oropharynx and esophagus appeared to be within normal limits. There was no diaphragmatic hernia present. The stomach was entered. Then after all fluid and air were suctioned and the stomach was fully decompressed, the scope was withdrawn and secured in the mid esophagus. The patient was then prepped and draped in the usual sterile manner, and abdominal access was established at the right upper quadrant with the Jada technique. A 12 mm blunt port was inserted, and the abdomen was insufflated with CO2 to a pressure of 15 mmHg. Under direct visualization, additional ports were placed, specifically two 5 mm Versi-step ports to the left upper quadrant, and a 5 mm Versi-Step port to the right upper quadrant. 1% lidocaine plain was used to infiltrate all port sites as well as all fascia defects. Following that, the patient was placed in a steep reverse Trendelenburg position. An additional 5 mm port was placed to the right flank for the Mediflex retractor that was used to retract the left lobe of the liver. The gastro-esophageal fat pad was opened with the ultrasonic device (Thunderbeat, Olympus) and the anterior esophagus and hiatus were exposed. The angle of His was opened with the ultrasonic device the fundus of the stomach from any diaphragmatic and splenic attachments. I then opened the gastrocolic ligament between the transverse colon and the greater curvature of the stomach with the ultrasonic device to enter the lesser sac and facilitate the ligation of the short gastric vessels. I started at a mid-point along the greater curvature and using the Thunderbeat, all short gastric vessels were divided all the way to the angle of His until the left beatrice was completely dissected at its entirety. I then divided the gastro-colic ligament distally to a distance of about 3-4 cm proximal to the pylorus. Near the upper pole of the spleen there was additional mass posterior to the stomach very close to the spleen which had a different color than the stomach. Initially it was not clear whether this was a separate structure or it was originating from the stomach. I dissected carefully around this mass and dissected it off the spleen. 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 There were extensive congenital adhesions between the pancreas and posterior gastric wall. Those were lysed completely with the ultrasonic device. Adhesiolysis took approximately 45 min to complete. The stomach was then divided transversely with three Endo ALLY-45 purple and four ALLY-60 articulating purple loads using the ZenMateIA stapler and loads. Every effort was made that the gastric sleeve had a tubular shape and an even caliber throughout. Once the sleeve resection was completed, the staple line of the gastric sleeve was reinforced with Hemoclips. Additional loads were used, than the usual, in order to make sure that the entire gastric diverticulum was completely resected including the inner opening to the stomach. I was able to do that successfully. The resected stomach was retrieved without difficulty from the Jada port. A gastropexy was then performed in order to prevent postoperative GERD and partial gastric volvulus. Several interrupted 2.0 Surgidac sutures were placed between the sleeve's staple line and the previously divided greater omentum and gastro-colic ligament using the Endo-Stitch device. ?An upper endoscopy was performed. There was no narrowing at the GE junction. The scope was easily advanced all the way to the pylorus which was clearly visualized. There was no narrowing anywhere and the sleeve's caliber was even throughout. The sleeve's staple line was inspected and there was no evidence of ischemia, bleeding or dehiscence. At that point the gastroscope was withdrawn from the patient?s mouth while we were decompressing the bowel and the stomach from any remaining air. I looked into the lesser sac to see how the sleeve was situating and it was situating well. There was no bleeding from the staple line, spleen, or short gastric vessels. The Mediflex retractor was removed, and the undersurface of the liver was inspected and there was no bleeding. The patient was placed in supine position. I closed the fascial defect of the 12 mm port site with a figure of eight #1 Polysorb suture. Then 30cc Ropivacaine plain with 10 mg of Dexamethasone were used to infiltrate the fascial closure as well as all skin incisions. At this point, the abdomen was deflated, all ports were removed under direct vision, and no bleeding was noted from any of the port sites. The skin incisions were irrigated with saline and were closed with 4-0 absorbable monofilament sutures. Steri-Strips and OpSites were used to cover all incisions. The patient was extubated and was transferred in stable condition to the recovery room for further care. I was present and performed all vargas parts of the procedure. Ms. Mcfarzad was the fast food sales assistant. There were no residents to assist with this case. Alexx Lr MD, PhD, FACS Surgeon: Tyrell Lr MD Anesthesia: GETA, local and other (TAP bloxk) Was an Gauge Machine Operator used for this Procedure?: Yes Gauge Machine Operator: Estefany Manning Estimated blood loss (mL): 10 IV fluids (mL): 2,500 Urine output (mL): 0 (No Juarez to record output) Pathology: other (1) Stomach, 2) gastric divericulum, 3) gastro-esophageal fat pad) Condition: stable Disposition: PACU
--- NOTE | 2024-12-14 08:45 | HO.ANESPROP2 ---
Documented by User: Leidy Zendejas NP 12/12/24 14:26 HPI - Anesthesia Eval Consult details Narrative: 59yo F for Gastrectomy Sleeve - EGD, possible diaphragmatic hernia, possible ventral hernia, possible open PMFSH Active Problems Active Problems: All Active Problems Abnormal EKG (Acute) Vitamin B1 deficiency (Acute) BMI 34.0-34.9,adult (Acute) Hyperlipidemia (Acute) Lower extremity edema (Acute) Hypertension (Acute) GERD (gastroesophageal reflux disease) (Acute) DJD (degenerative joint disease) (Acute) Pre-diabetes (Acute) Obesity (Acute) Past Medical History Medical History (Updated 12/14/24 @ 08:46 by Tyrell Lr MD) Hyperlipidemia Lower extremity edema Hypertension GERD (gastroesophageal reflux disease) DJD (degenerative joint disease) Pre-diabetes Pitting edema Obesity Hx of degenerative disc disease Family History Family History (Updated 10/19/24 @ 09:17 by GERARDO Casas) Mother Diabetes Congestive heart failure Father Colon polyp Tachycardia Paternal Grandmother Colon cancer Colostomy care Tachycardia Surgical History Surgical History History of esophagogastroduodenoscopy (EGD) S/P rotator cuff repair Hx of colonoscopy Hx of breast augmentation Hx of LASIK History of left oophorectomy Hx of tubal ligation Hx of cholecystectomy Hx of umbilical hernia repair Social History Social History Are you a primary special needs caregiver to a significant other at home: No Do you presently have visiting nurse or other home services: No Patient Tobacco Use Status: Former Tobacco user Use of substances other than those prescribed or required for medical reasons: No Have you been hit, kicked, punched, or otherwise hurt by someone within the past year? If so, by whom?: No Are you DNR?: No Advance Directives: No Advance Directives Information Provided: Yes Advance Directives on File: No Patient : No : No Poor oral hygiene: Yes Meds Allergies Allergy/AdvReac Type Severity Reaction Status Date / Time codeine Allergy Mild Shakiness, Verified 12/14/24 08:05 Vomiting Home Medications ?Medication ?Instructions ?Recorded ?Confirmed ?Last Taken ?Type diclofenac sodium 75 mg 75 mg PO 3XW 10/19/24 12/14/24 11/30/24 History tablet,delayed release finasteride 5 mg tablet 5 mg PO BEDTIME 10/19/24 12/14/24 12/13/24 History furosemide 20 mg tablet (Lasix) 20 mg PO Q OTHER DAY 10/19/24 12/14/24 12/07/24 History Vitamin B-12 1 tab DAILY 11/30/24 12/14/24 12/13/24 History ondansetron 4 mg disintegrating 4 mg PO Q12H PRN nausea and 12/14/24 12/12/24 Unknown History tablet vomiting Exam Height,Weight and Vital Signs: Height 5 ft 5 in Weight 87.543 kg Pertinent Lab Results Pertinent Lab Results: CBC, BMP, INR, A1C 12/06/24 from outside facility WNL Narrative Narrative: EKG 10/2024 ? limb lead reversal NSR @ 61 Incomplete RBBB T wave abnormality, consider inferior ischemia Stress ECHO 11/2024 Asymptomatic max treadmill stress echo with no echo evidence of inducible ischemia despite borderline abnormal ECG LV: Nml LV sys function, LVEF in nml range with visually estimated LVEF 60% Assessment and Plan Assessment Anesthesia Assessment: Chart Reviewed Documented by User: Marlin Fish DO 12/14/24 09:46 [facility] Past Medical History Medical History (Updated 12/14/24 @ 08:46 by Tyrell Lr MD) Hyperlipidemia Lower extremity edema Hypertension GERD (gastroesophageal reflux disease) DJD (degenerative joint disease) Pre-diabetes Pitting edema Obesity Hx of degenerative disc disease Family History Family History (Updated 10/19/24 @ 09:17 by GERARDO Casas) Mother Diabetes Congestive heart failure Father Colon polyp Tachycardia Paternal Grandmother Colon cancer Colostomy care Tachycardia Family history of problems with anesthesia: No Surgical History Surgical History History of esophagogastroduodenoscopy (EGD) S/P rotator cuff repair Hx of colonoscopy Hx of breast augmentation Hx of LASIK History of left oophorectomy Hx of tubal ligation Hx of cholecystectomy Hx of umbilical hernia repair History of Problems with Anesthesia: No Social History Social History Are you a primary special needs caregiver to a significant other at home: No Do you presently have visiting nurse or other home services: No Patient Tobacco Use Status: Former Tobacco user Use of substances other than those prescribed or required for medical reasons: No Have you been hit, kicked, punched, or otherwise hurt by someone within the past year? If so, by whom?: No Are you DNR?: No Advance Directives: No Advance Directives Information Provided: Yes Advance Directives on File: No Patient : No : No Poor oral hygiene: Yes Meds Allergies Allergy/AdvReac Type Severity Reaction Status Date / Time codeine Allergy Mild Shakiness, Verified 12/14/24 08:05 Vomiting Home Medications ?Medication ?Instructions ?Recorded ?Confirmed ?Last Taken ?Type diclofenac sodium 75 mg 75 mg PO 3XW 10/19/24 12/14/24 11/30/24 History tablet,delayed release finasteride 5 mg tablet 5 mg PO BEDTIME 10/19/24 12/14/24 12/13/24 History furosemide 20 mg tablet (Lasix) 20 mg PO Q OTHER DAY 10/19/24 12/14/24 12/07/24 History Vitamin B-12 1 tab DAILY 11/30/24 12/14/24 12/13/24 History ondansetron 4 mg disintegrating 4 mg PO Q12H PRN nausea and 12/14/24 12/12/24 Unknown History tablet vomiting Exam Exam Date and Time: 12/14/24 0845 Height,Weight and Vital Signs: Height 5 ft 5 in Weight 87.543 kg Vital Signs Temperature 97.9 F 12/14/24 08:10 Pulse Rate 68 12/14/24 08:10 Respiratory Rate 16 12/14/24 08:10 Blood Pressure 147/69 H 12/14/24 08:10 Pulse Oximetry 98 12/14/24 08:10 Oxygen Delivery Method Room Air 12/14/24 08:10 Temperature 97.9 F 12/14/24 08:10 Pulse Rate 68 12/14/24 08:10 Respiratory Rate 16 12/14/24 08:10 Blood Pressure 147/69 H 12/14/24 08:10 Pulse Oximetry 98 12/14/24 08:10 Oxygen Delivery Method Room Air 12/14/24 08:10 Airway Mallampati Class: II TM Dist: >3cm Neck ROM: Full Loose/Missing/Broken Teeth: No (patient denies any loose or broken teeth) Heart: S1S2 Lungs: CTAB Assessment and Plan Assessment Anesthesia Assessment: Anesthesia Plan Discussed and Chart Reviewed Final Anesthetic Review Family History of Problems with Anesthesia: No History of Problems with Anesthesia: No NPO: Yes ASA Class: II Final Preanesthetic Review: No Changes in Pt Med Stat, Meds/Allgs Chart Reviewed, Consent Obtained/Reviewed and Anes Risks/Benef Reviewed Patient Risk: Low Procedure Risk: Intermediate Anesthetic Plan Anesthetic Plan: GA and Agree w/ Assess. and Plan Disposition: Standard PACU
--- NOTE | 2024-12-14 08:45 | P.PNGS_ITS ---
Subjective Subjective Date of Service: 12/15/24 Interval history: Feels well. Mild incisional pain. She is tolerating phase 1 bariatric diet Physical Exam 2 Vital Signs: Vital Signs: Last Vital Signs Temp 97.9 F 12/14/24 08:10 Pulse 68 12/14/24 08:10 Resp 16 12/14/24 08:10 BP 147/69 H 12/14/24 08:10 Pulse Ox 98 12/14/24 08:10 O2 Del Method Room Air 12/14/24 08:10 BMI result Body Mass Index 31.4 GI: Inspection: Yes normal to inspection, Yes incision (clean, dry and intact) and Yes obesity Palpation (GI): Soft to palpation Extrem: Right lower extremity: normal to inspection (no calf tenderness) L eft lower extremity: normal to inspection (no calf tenderness) Objective Data Active Medications Lactated Ringer's (Lr) 1,000 mls @ 999 mls/hr IV .Q1H1M PENDING SALE TO [facility] Stop: 12/14/24 10:00 Last Admin: 12/14/24 08:40 Dose: 999 mls/hr Documented By: ANCELMO Lactated Ringer's (Lr) 1,000 mls @ 100 mls/hr IVCONT .Q10H PENDING SALE TO [facility] Last Admin: 12/14/24 08:40 Dose: 100 mls/hr Documented By: ANCELMO Labs 12/15/24 06:12 12/15/24 06:12 Labs: Laboratory Results - last 24 hr 12/14/24 08:05 Blood Type B Negative Antibody Screen NEGATIVE Procedures Date of Service Date of Service: 12/15/24 Progress Note: A&P Assessment and plan (1) Obesity: Status: Acute Assessment and Plan: s/p laparoscopic sleeve gastrectomy, lysis of adhesions, resection of gastric diverticulum and gastropexy Doing well Will check am labs and if OK the patient will be discharged home (2) BMI 31.0-31.9,adult: Status: Acute (3) GERD (gastroesophageal reflux disease): Status: Acute (4) DJD (degenerative joint disease): Status: Acute (5) Lower extremity edema: Status: Acute (6) Hypertension: Status: Acute (7) Hyperlipidemia: Status: Acute (8) S/P laparoscopic sleeve gastrectomy: Status: Acute (9) Gastric diverticulum: Status: Acute Time Spent With Patient Time: Total time managing care of this patient today ____ minutes. Quality Stroke Does the patient have a stroke diagnosis?: No VTE Prior VTE?: No VTE Risk Level:: Surgical - moderate VTE Device Contraindication: N/A - Device Ordered VTE Drug Contraindication: N/A - Med Ordered
[2024-12-14] MEDS: Haloperidol Lactate 5 MG/ML VIAL 1 MG IVPUSH (11:29)
--- NOTE | 2024-12-14 11:31 | P.DS_ITS ---
DS: Providers Provider Date of Service: 12/15/24 Date of admission: 12/14/24 08:39 Date of discharge: 12/15/24 Primary care physician: Unknown Physician DS: Diagnosis Discharge Diagnosis (1) Obesity: Status: Acute (2) BMI 31.0-31.9,adult: Status: Acute (3) GERD (gastroesophageal reflux disease): Status: Acute (4) DJD (degenerative joint disease): Status: Acute (5) Lower extremity edema: Status: Acute (6) Hypertension: Status: Acute (7) Hyperlipidemia: Status: Acute (8) S/P laparoscopic sleeve gastrectomy: Status: Acute (9) Gastric diverticulum: Status: Acute DS: Summary Hospital Course Hospital Course: ADMITTING DIAGNOSIS: obesity, HLD, HTN, GERD, lower extremity edema, DJD, prediabetes DISCHARGE DIAGNOSIS: same, s/p laparoscopic sleeve gastrectomy and gastropexy PAST SURGICAL HISTORY:? History of esophagogastroduodenoscopy (EGD) S/P rotator cuff repair Hx of colonoscopy Hx of breast augmentation Hx of LASIK History of left oophorectomy Hx of tubal ligation Hx of cholecystectomy Hx of umbilical hernia repair PROCEDURE: upper endoscopy, laparoscopic sleeve gastrectomy and gastropexy DISCHARGE SUMMARY: History of Present Illness: The patient is a?59 year-old woman with a BMI of?31.4 kg/m2 and associated co- morbidities as described above. The patient had extensive work-up, lost?23.2 lbs preoperatively and was electively scheduled for laparoscopic, possible open sleeve gastrectomy and gastropexy. Risks and complications of the surgery were discussed with the patient in advance, particularly the possibility of , pulmonary embolism, anastomotic leak, bleeding, bowel injury, GERD, cardiac, renal or pulmonary complications. The patient understood all the risks and was in agreement with the surgical plan. Hospital Course: The patient underwent an uneventful laparoscopic sleeve gastrectomy with gastropexy on the day of admission. Intraoperatively, she was noted to have a gastric diverticulum which was resected as part of the specimen. Postoperatively, the patient was transferred to the surgical floor. The patient received IV acetaminophen and IV Dilaudid for pain control. Patient was started on bariatric phase 1 diet POD #0. On postoperative day one, the patient was feeling well without nausea, vomiting, fevers, or tachycardia. The patient had some mild incisional pain and the abdomen was soft.? ? On the morning of postoperative day one, the patient was continued on 1 ounce of water or ice every half hour. During the day, the patient did fairly well, having some incisional pain, but able to ambulate adequately and to tolerate liquids well. Since the patient is doing well, we decided that the patient was ready to be discharged. The patient was given instructions to follow-up in office next week and to call the office for any fever over 101, persistent abdominal pain, nausea, vomiting, GERD, symptoms of DVT such as calf tenderness, or leg swelling, or pulmonary embolism such as chest pain or shortness of breath.? The patient was also instructed to drink 40-60 ounces of liquids per day using the 1-ounce cups. The patient had been given prescriptions for Tylenol for pain, Zofran prn for nausea, and pantoprazole and carafate previously. The patient was encouraged to ambulate and use the incentive spirometer. The patient was allowed to shower, but no baths, and encouraged to stay active at home. All of these instructions were given to the patient personally. All questions were answered and the patient understood all instructions, the instructions were also given to the patient in print. Time Attestation Discharge Coordination Time (in mins): 30 Quality: Safe Use of Opioids Does Pt have an Active Cancer Diagnosis on the Problem List?: No Quality: Stroke Does the patient have a stroke diagnosis?: No Physical Exam Vital Signs: Vital Signs: Last Vital Signs Temp 98.2 F 12/14/24 11:15 Pulse 86 12/14/24 11:15 Resp 12 12/14/24 11:15 BP 136/75 12/14/24 11:15 Pulse Ox 99 12/14/24 11:15 O2 Del Method Simple Mask 12/14/24 11:15 O2 Flow Rate 6 12/14/24 11:15 BMI result Body Mass Index 31.4 DS: Data Data Completed and Pending Pending studies at discharge: Pending at discharge 12/14/24 10:21 Surgical [PTH] Routine Labs on day of discharge: Laboratory Results - last 24 hr 12/14/24 08:05 Blood Type B Negative Antibody Screen NEGATIVE Discharge Plan Discharge Anticipated Discharge Date/Time: 12/15/24 10:00 Patient Disposition: Home, Self-Care Discharge Diagnosis: s/p laparoscopic sleeve gastrectomy with gastropexy Referrals: Physician,Unknown J [Physician] - 1 Week Discharge Medications: Continued ondansetron 4 mg tablet,disintegrating 4 mg PO Q12H PRN (Reason: nausea and vomiting) Rx Instructions: Only take one every 12 hours as needed if you have nausea finasteride 5 mg tablet 5 mg PO BEDTIME pantoprazole 40 mg tablet,delayed release (DR/EC) 40 mg PO DAILY Qty: 90 0RF sucralfate 100 mg/mL suspension 10 ml PO BID Qty: 600 2RF Discontinued thiamine HCl (vitamin B1) 100 mg tablet 100 mg PO DAILY Qty: 90 0RF Vitamin B-12 1 tab DAILY diclofenac sodium 75 mg tablet,delayed release (DR/EC) 75 mg PO DAILY PRN (Reason: Pain) Discharge Orders: Discharge Order (Routine); Ordered 12/15/24 Ordered By: Tyrell Lr Activity on Discharge: No heavy lifting Stand Alone Forms: Patient Portal Discharge page Print Language: Northern Irish Care Plan Goals: weight loss Health Concerns: obesity Plan of Treatment: No tub baths, sex or returning to work until discussed at first post op appointment. No alcohol, tobacco or illegal drug use. Continue to use incentive spirometer hourly while awake. Walk in home for 5- 10 minutes every 2 hours during the first week. Wear abdominal binder with activity. Follow all meal plan instructions from your bariatric surgeon. Review bariatric handbook and call with any questions. Discharge Instructions 1. Please call your doctor or come back to the emergency room should any new symptoms arise. 2. Activity: abstain from alcohol,? limited stair climbing, no bending, no driving, no exercise, no illicit substances, no lifting, no sex, no tub bath, no work. 4. Diet: follow your bariatric surgeon's recommendations for advancing diet. 5. Dressing Change/Wound Care: Your incisions are covered with waterproof dressings. You can shower with these and pat dry. Do not rub over dressings or incisions. If the area is tender, you may apply an ice pack for short intervals (no more than 20 minutes on, followed by at least 20 minutes off). Do not apply heat. Do not use creams, lotions, or topical antibiotics unless instructed to do so by your surgeon. 6. Call your doctor if: - Your temperature exceeds 101.5 F - You experience excessive pain or swelling - You have an unexpected reaction to medication - You have excessive bleeding - You experience continued vomiting/nausea - Your incision begins to separate - Your incision shows signs of infection such as increased redness, swelling, excessive pain, heat, or drainage (light blood or clear fluid is normal) General instructions: No lifting greater than 10 lbs for the next 6 weeks. [address] driving within 24 hours of taking narcotic pain medications. If you do not move your bowels in the next 2 days, please take milk of magnesia over the counter. Please follow the post op diet and do not advance your diet until instructed by your surgeon or until you are seen in the office in about 1 week. Please walk around your home every hour or two to prevent blood clots from forming in your legs. You do not need to wake from sleeping to walk. Please sleep in a bed or couch to prevent kinking at the hips and knees. Please take your incentive spirometer (your lung medical records supervisor) home with you and use it for the next few days to prevent pneumonias. You may shower; no hot tubs, baths or swimming pools. Please make sure you are consuming 40-60 ounces of total fluids per day. Avoid all carbonation. Please call the office with any questions or concerns such as increasing abdominal pain, fever, chills, shortness of breath, chest pain, leg pain or swelling, or redness or drainage from your incisions. Do not hesitate to contact the office with any questions at . The patient's medical history has been reviewed and they are considered low risk for post op DVT and therefore DVT prophylaxis is not considered necessary. Travel after surgery was reviewed. The patient has not disclosed any travel plans during the first 30 days after surgery and they have been advised that within the first 30 days after surgery any bus, plane, train or car travel over 2 hours in duration is contraindicated due to the possibility of developing b lood clots from immobility. Any travel, needs to include periods of ambulation of 10 minutes in duration every 2 hours.? The patient was instructed to discuss any plans for travel during this period with their bariatric surgeon. Assessment: s/p laparoscopic sleeve gastrectomy with gastropexy Discharge Date/Time: 12/15/24 15:51
[2024-12-14] MEDS: Metoclopramide HCl 10 MG/2 ML VIAL IVPUSH (11:56)
[2024-12-14] MEDS: HYDROmorphone HCl 0.5 MG/0.5 ML SYRINGE IVPUSH (12:12)
[2024-12-14 13:11] LABS: Hematocrit 40.7 % (37.0-47.0); Hemoglobin 13.3 g/dl (12.0-16.0)
[2024-12-14 13:25] LABS: Anion Gap 14 (12-20); Blood Urea Nitrogen 11 mg/dL (9-16); Calcium 9.6 mg/dL (8.4-10.2); Carbon Dioxide 27 mmol/L (22-29); Chloride 107 mmol/L (96-108); Creatinine Clr Calc Pharmacy 94.6; Estimated Glomerular Filt Rate > 60; Glucose Random 132 mg/dL (60-115); Potassium 3.5 mmol/L (3.3-5.1); Sodium 144 mmol/L (135-145)
--- NOTE | 2024-12-14 13:28 | PHA.MEDREC ---
Pharmacy Consult ? Medication Reconciliation Pharmacy has reviewed the medication reconciliation done by nursing and also spoke to patient. Per patient, she is no longer taking furosemide (it was prn edema), vitamin D 1.25 mg nor minoxidil 2.5 mg.
[2024-12-14] MEDS: ceFAZolin Sodium/Dextrose,Iso 2 GM/50 ML PIGGYBACK IV (14:09)
[2024-12-14] MEDS: HYDROmorphone HCl 0.5 MG/0.5 ML SYRINGE 0.25 MG IVPUSH ×2 (15:07→22:36)
[2024-12-14] MEDS: Acetaminophen 1,000 MG/100 ML PIGGYBACK 16.7 MG IV ×2 (15:08→21:05)
[2024-12-14] MEDS: 0.9 % Sodium Chloride Flush 3 ML SYRINGE IVFLUSH (20:19)
[2024-12-14] MEDS: Finasteride 5 MG TABLET PO (20:19)
[2024-12-14] MEDS: Famotidine/PF 20 MG/2 ML VIAL IVPUSH (20:19)
[2024-12-15 02:32] VITALS: BP 128/65; PULSE 83; RESP 17; TEMP 36.7; O2SAT 95
[2024-12-15] MEDS: Acetaminophen 1,000 MG/100 ML PIGGYBACK 16.7 MG IV (03:01)
[2024-12-15 06:49] LABS: MANUAL DIFF FLAG NO
[2024-12-15 06:57] LABS: Basophils Percent Auto 0.1 % (0-2); Hematocrit 37.8 % (37.0-47.0); Hemoglobin 12.5 g/dl (12.0-16.0); Imm Gran Abs Auto 0.05 X10*3/uL (0.00-0.03); Imm Gran Pct Auto 0.6 % (0.0-0.4); Lymphocytes Percent Auto 11.8 % (20-40); Mean Corpuscular HGB Conc 33.1 g/dl (31.0-35.0); Mean Corpuscular Hemoglobin 28.5 pg (27.0-33.0); Mean Corpuscular Volume 86.3 fL (80.0-98.0); Mean Platelet Volume 11.4 fL (9.4-12.3); Monocytes Absolute Auto 0.4 X10*3/uL (0.1-1.2); Monocytes Percent Auto 5.1 % (2-11); Neutrophils Percent Auto 82.4 % (45-73); Platelet Count 223 X10*3/uL (160-400); Red Blood Count 4.38 X10*6/uL (4.20-5.50); Red Cell Distribution Width 12.6 % (11.0-16.0); White Blood Count 8.5 X10*3/uL (4.8-10.8)
[2024-12-15 07:15] LABS: Anion Gap 13 (12-20); Blood Urea Nitrogen 9 mg/dL (9-16); Calcium 9.4 mg/dL (8.4-10.2); Carbon Dioxide 25 mmol/L (22-29); Chloride 111 mmol/L (96-108); Creatinine Clr Calc Pharmacy 103.4; Estimated Glomerular Filt Rate > 60; Glucose Random 111 mg/dL (60-115); Potassium 4.1 mmol/L (3.3-5.1); Sodium 145 mmol/L (135-145)
[2024-12-15 07:32] VITALS: BP 111/53; PULSE 59; RESP 18; TEMP 36.3; O2SAT 94
--- NOTE | 2024-12-15 09:00 | MHC.CM.PN ---
Pt self-care, lives at home with her spouse/HCP Herminio who will transport her home at discharge. PCP: Dr. Yas Alvarez
[2024-12-15 11:57] VITALS: BP 111/54; PULSE 55; RESP 17; TEMP 36.7; O2SAT 95
[2024-12-15] MEDS: Acetaminophen 325 MG TABLET PO (12:20)
[2024-12-15] MEDS: Lactated Ringers 1,000 ML 100 ML IVCONT (13:02)
[2024-12-15 15:44] VITALS: BP 108/57; PULSE 59; RESP 16; TEMP 36.4; O2SAT 94
--- NOTE | 2024-12-18 11:21 | HO.POSTANES ---
Post Anesthesia Evaluation Post Anesthesia Evaluation Date of Service: 12/14/24 Anesthesia: General Endotracheal-GETA Comments: left message on patient phone
== END 2024-12-15 15:51 | disposition home or self-care (01) | DRG 403 ==
LOC: HO.SSSA 08:40 → HO.S3 11:01
PROVIDERS: Physician Assistant Surgical; Admitting Provider Surgery; Visit Provider Surgery
PROC: 0DB64Z3 Excision of Stomach, Percutaneous Endoscopic Approach, Vertical (ICD-10-PCS; CPT 43845; principal; 2024-12-14 10:20)
DX: E66.01 Morbid (severe) obesity due to excess calories (principal); K76.0 Fatty (change of) liver, not elsewhere classified; I10 Essential (primary) hypertension; K21.9 Gastro-esophageal reflux disease without esophagitis; K31.4 Gastric diverticulum; Z68.31 Body mass index [BMI] 31.0-31.9, adult; M19.90 Unspecified osteoarthritis, unspecified site; L65.9 Nonscarring hair loss, unspecified; K66.0 Peritoneal adhesions (postprocedural) (postinfection); Z87.891 Personal history of nicotine dependence; Z79.899 Other long term (current) drug therapy
CPT/HCPCS: 36415; 80048; 85014; 85018; 85025; 86850; 86900; 86901; 88304; 88305; 88307; 88342; A4649; C9145; J0131; J0690; J1100; J1171; J1308; J1630; J2003; J2250; J2371; J2405; J2704; J2765; J2795; J3010; J7120

== ENCOUNTER → 2024-12-14 08:39 | Outpatient (BNV) | payer BC, SELFPAY | PROVIDERS: Admitting Provider Surgery; Visit Provider Surgery | DX: E66.811 Obesity, class 1 (principal); E66.09 Other obesity due to excess calories; Z68.34 Body mass index [BMI] 34.0-34.9, adult; Z68.31 Body mass index [BMI] 31.0-31.9, adult; K21.9 Gastro-esophageal reflux disease without esophagitis; M19.90 Unspecified osteoarthritis, unspecified site; R60.0 Localized edema; I10 Essential (primary) hypertension; E78.5 Hyperlipidemia, unspecified; Z98.84 Bariatric surgery status; K31.4 Gastric diverticulum | CPT/HCPCS: 43659; 43775; 99024; 99499 ==

== ENCOUNTER 2024-12-20 14:28 | Outpatient (AMB) | payer BC, SELFPAY ==
--- NOTE | 2024-12-20 13:43 | A.OFFVIS_ITS ---
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 She is 5 days post sleeve gastrectomy performed on 12/14/2024. She is tolerating, Celebrate rebuild 1 scoop each at 10-12, 2-4, 6-8. She felt that she was going to pass out and felt weak and so she increased her protein to 2 scoops per shake without communicating with Dr Rasmussen. Since then she feels much better. Drinking 30 oz additional of water. Pos BM. No abdominal pain. PFSH Medical History (Updated 12/14/24 @ 11:23 by Tyrell Lr MD) Hyperlipidemia Lower extremity edema Hypertension GERD (gastroesophageal reflux disease) DJD (degenerative joint disease) Pre-diabetes Pitting edema Obesity Hx of degenerative disc disease Surgical History (Updated 12/14/24 @ 11:23 by Tyrell Lr MD) History of esophagogastroduodenoscopy (EGD) S/P rotator cuff repair Hx of colonoscopy Hx of breast augmentation Hx of LASIK History of left oophorectomy Hx of tubal ligation Hx of cholecystectomy Hx of umbilical hernia repair Family History (Updated 10/19/24 @ 09:17 by GERARDO Casas) Mother Diabetes Congestive heart failure Father Colon polyp Tachycardia Paternal Grandmother Colon cancer Colostomy care Tachycardia Social History Household Members: Spouse Housing: House Are you a primary direct care specialist to a significant other at home: No Do you presently have visiting nurse or other home services: No Patient Tobacco Use Status: Former Tobacco user service: No Telehealth Telehealth Telehealth Platform: Telephone Location of provider rendering services: practice address Location of patient: address on file Patient Identification confirmed using: Name, : Yes Telehealth method: voice only Patient verbally consented to treatment: Yes Patient verbally consented to billing insurance company: Yes Patient informed of any privacy concerns related to visit: Yes Minutes spent on Phone/Video with Pt.: 15 Assessment & Plan Assessment & Plan (1) S/P laparoscopic sleeve gastrectomy: Code(s): Z98.84 - Bariatric surgery status Category: Surgical Plan: Pathology of the stomach revealed gastric diverticulum, benign. This was reviewed with the patient. POD 5 s/p LSG on 12/14/[address]r Weight loss prior to surgery was 19.3 pounds or 9.1 % TBWL. Original weight on 10/20/2024 was 211.8 pounds and op weight was 192.5 pounds. Be sure to text Dr Lr exactly 1 week after surgery your weight from your home scale so he can adjust your meal plan. Continue meal plan until f/u heather Tam in 2 weeks May shower, no submersion in bath for another week Continue abdominal binder with activity and exercise for the next 2 weeks. Exercise prior to surgery was treadmill and may resume No abdominal exercises for 6 weeks post operatively Will be emailed link to post op video for review Reminded of the pace of drinking, 2 mL per minute, 1 oz/15 min.
[2024-12-20 13:44] VITALS: BMI 29.9
--- OUTSIDE RECORDS SUMMARY | 2024-12-20 14:31 | XMS_ITS | Data Portability ---
Author Organization [place] - [facility], [facility] - [facility]PATIENT Address [address] [place] [address] Care Team Providers Care Canal Equipment Maintenance Supervisor Name Role Phone JULIUS FLOREZ Primary Care Provider [phone] Assessment No assessment recorded. Plan of Treatment Reminders Order Date Submit Date Provider Last Modified By Organization Details Last Modified Time Details Appointments None recorded. Lab None recorded. Referral physical therapist referral - S/P Arthrosco pic Cuff Repair-Le ft Shoulder 2023 024 [email or web address] [facility]), [address], [place], [address], 4 11:14:48 physical therapist referral - S/P Arthrosco pic Cuff Repair-Le ft Shoulder 2023 024 [facility] 2 [facility]), [address], [place], [address], 4 13:38:56 physical therapist referral - S/P LEFT Arthrosco pic Cuff Repair 2023 024 LAURA [facility]), [address], [place], [address], 4 15:27:23 Procedures None recorded. Surgeries None recorded. Imaging None recorded. Medication Orders Celebrex 200 mg capsule 2023 024 [email or web address] [facility] #[id number], [address] [place], [address], 13:26:02 tramadol 50 mg tablet 2023 024 [id number], [address] [place], [address], 13:37:14 tramadol 50 mg tablet 2023 024 [facility]arm[facility] #[id number], [address] [place], [address], 13:37:14 Patient TargetsNo targets recorded. Patient InstructionsNo instructions recorded. Reason for Referral Physical Therapist Referral for Rupture of rotator cuff of left shoulder POST OP REHAB S/P LEFT Arthroscopic Cuff Repair IF BICEP TENODESIS: NO ACTIVE ELBOW FLEXION X 3WEEKS NO RESISITED ELBOW FLEXION X 8 WEEKS Referring Physician: Saundra Chase, Physician Pharmacy Resident, Encounter Date: 02/11/2024 Physical Therapist Referral for [...] Time 4 Orthopaedic Surgery completed Donnie Joy [facility] 02/11/2024 13:20:10 5 Other completed Murali Bowie [facility] 10/29/2023 08:58:29 Imaging Results None recorded. Procedure Notes None recorded. Medical Equipment None Reported. Allergies Allergen ID Allergen Name Allergen Category Reaction Reaction Severity Criticality Documentation Date Start Date Code Code System Note Provider Name and Address Organization Details Recorded Time [id number] codeine medicatio n Not available Not available Not available 10/29/2023 2670 RxNorm Murali mora [facility] 08:58:21 Medications Name Sig Start Date Stop [...] Last Updated DateTime 08/31/2024 170.18 cm [facility] [place] 08/31/2024 17:02:54 Date Recorded Body height Provider Name an d Address Organization Details Last Updated DateTime 02/11/2024 170.18 cm [facility] 02/11/2024 13:19:44 Date Recorded Body height Body mass index (BMI) Body weight Provider Name and Address Organization Details Last Updated DateTime 03/14/2024 170.18 cm 28.2 kg/m2 15049.63 g Shea Diaz [facility] 03/14/2024 12:52:38 Date Recorded Body height Provider Name an d Address Organization Details Last Updated DateTime 04/25/2024 170.18 cm Shea Amos [facility] 04/25/2024 13:37:04 Date Recorded Body height Provider Name an d Address Organization Details Last Updated DateTime 06/27/2024 170.18 cm Josefina Kong [facility] 06/27/2024 13:17:05 Social History Question Answer Notes LastModified by Organizat ion Details LastModified Time Tobacco Smoking Status Former Smoker Murali mora [facility] 10/29/2023 08:58:26 How Many Times Per Week Do You Exercise? 1-2 Times Per Week Information not available 03/14/2024 How Much Tobacco Do You Smoke? No [email or web address] Information not available 10/29/2023 How Many Years Have You Smoked Tobacco? 10 Information not available 03/14/2024 Sex: Unknown Functional Status Question Answer Note LastModified by Organizat ion Details LastModified Time What is your level of alcohol consumption? None [email or web address] Information not available 10/29/2023 Do you or have you ever used smokeless tobacco? Never used smokeless tobacco [email or web address] Information not available 10/29/2023 Are you currently employed? 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 Never used electronic cigarettes [email or web address] Information not available 10/29/2023 What is your [...] Asthma / Shortness of Breath / Sleep Cone Chocolate Dipper ea (please specify) N Pulmonary Embolism N Gynecological HistoryNo gynecological history recorded. Obstetrics History GPAL:G 0 P 0 0 0 0 Past Encounters Encounter ID Performer Location Encounter Start Date Encounter Closed Date Diagnosis/Indication Diagnosis SNOMED-CT Code Diagnosis ICD10 Code Diagnosis Note [id number] RASHMI DEL VALLE [facility] Office [address] [place] [address] 10/29/2023 08:21:29 10/29/2023 09:25:25 Bursitis of left shoulder 5059722003 71535 M75.52 [id number] RASHMI DEL VALLE [address] [address] 11/08/2023 14:12:08 11/08/2023 15:05:40 Strain of rotator cuff of shoulder 925345948 S46.012A [id number] GERTRUDE LUCIA MD [address] [address] 11/11/2023 13:25:14 11/11/2023 14:52:31 Bursitis of left shoulder 0085073525 55555 M75.52 Impingemen t syndrome of left shoulder region 4831518637 31176 M75.42 Pain of ri ght shoulder joint 9542750724 2307340 M25.511 Strain of rotator cuff of shoulder 450825139 S46.011A [id number] RASHMI DEL VALLE [facility] Office [address] [place] [address] 12/02/2023 09:45:14 12/02/2023 11:30:03 Bone spur of left shoulder 1646460736 55178 M25.712 Impingemen t syndrome of left shoulder region 9006948555 19990 M75.42 [id number] RASHMI DEL VALLE [facility] Office [address] [address] 02/11/2024 13:00:48 02/11/2024 13:59:33 Pain of left shoulder joint 7809525162 1174205 M25.512 Rupture of rotator cuff of left shoulder 4984348666 8143110 M75.102 Pain of oulder region 18498800 M25.109 [id number] [facility] [address] [place] [address] 03/14/2024 12:47:57 03/14/2024 13:38:56 Strain of rotator cuff of shoulder 067903977 S46.012A Pain of [facility] region 88533278 M25.203 [id number] GERTRUDE LUCIA MD [facility] Office [address],[place] [address] 04/25/2024 13:34:23 04/25/2024 13:59:12 Strain of rotator cuff of shoulder 477332024 S46.012D [id number] MD [facility] [address],[place] [address] 06/27/2024 13:08:38 06/27/2024 14:00:23 Bursitis of left shoulder 9194993706 28820 M75.52 Bone spur of left shoulder 5329794476 31405 M25.712 Impingemen t syndrome of left shoulder region 3630689828 79870 M75.42 Strain of rotator cuff of shoulder 139066302 S46.012D [id number] Gertrude Lucia MD [place] [facility] [address], [address] [place] [address] 08/31/2024 17:02:38 08/31/2024 18:04:43 Strain of rotator cuff of shoulder 402957639 S46.011D Health Concerns Section Related Observation LastModified by Organization Detai ls LastModified Time None Recorded Concern Status LastModified by Organization Details LastModified Time None Recorded Advance Directives Directive None Recorded Payers Insurance Date Sequence Insurance Name Policy Number Policy Jin Covered Member ID Jin Member ID Guarantor Name 10/22/2023 1 WILD [id number] Herminio Leonard [id number] Shikha Leonard 10/02/2024 1 WILD (PPO) [id number] Herminio Leonard [id number] Shikha Leonard Notes Date Note Type [...] weeks with Dr. Lucia. RASHMI DEL VALLE [address] [place] [address], [phone], [facility] 02/15/2024 17:37:34 03/14/2024 text/html Shikha comes in today, doing okay. She is very protective of the shoulder that is a bit stiff, so I have encouraged her to wean out of the sling, really work on stretching. Continue physical therapy. Back in 6 weeks. GERTRUDE LUCIA MD [address] [place] [address], [phone], [facility] 03/15/2024 08:20:55 04/25/2024 text/html Shikha is doing great 3 months out, full range of motion, minimal discomfort. Very happy with where she is. Continue PT. Let us add some massage for rhomboid pain and recheck in 2 months. GERTRUDE LUCIA MD [address] [place] [address], [phone], [facility] 04/26/2024 08:24:44 06/27/2024 text/html Shikha comes in today 5 months out, doing remarkably well. She has full range of motion. No pain. She is very happy with her progress. Home exercise program. Recheck via telehealth in 2 months. GERTRUDE LUCIA MD [address] [place] [address], [phone], [facility] 06/28/2024 10:53:21 08/31/2024 text/html Shikha is a xiwd-jge-a-half months out from repair of the rotator cuff, doing great. She has great motion except for internal rotation is improving, but she has no pain. She can continue home exercise program. Follow up p.r.n., [id number] encounter. This visit was conducted as a real time interactive TeleHealth audio & visual via [employer]. The patient was identified by name and date of and consented to this TeleHealth visit. The patient was at their home in [place] and I was at my [place] office. Participants of the telehealth visit included myself and the patient. This was done over the course of 10 minutes including record review. Gertrude Lucia MD [address] [place], [phone], [facility] - [facility] 09/01/2024 08:04:46 OBGyn Episode No OBEpisode recorded.
== END 2024-12-20 14:58 | disposition home or self-care (01) ==
LOC: HO.HBS 14:28
PROVIDERS: Visit Provider Physician Assistant Surgical
DX: Z98.84 Bariatric surgery status (principal)
CPT/HCPCS: 99024

== ENCOUNTER 2024-12-21 10:50 | Outpatient (AMB) | payer BC, SELFPAY ==
--- NOTE | 2024-12-21 10:12 | MHC.WMTHER ---
Intake Intake Visit Reasons: TV PO LSG 12/14/24 Allergies codeine Allergy (Mild, Verified 12/14/24 08:05) Shakiness, Vomiting PFSH Medical History (Updated 12/14/24 @ 11:23 by Tyrell Lr MD) Hyperlipidemia Lower extremity edema Hypertension GERD (gastroesophageal reflux disease) DJD (degenerative joint disease) Pre-diabetes Pitting edema Obesity Hx of degenerative disc disease Surgical History (Updated 12/14/24 @ 11:23 by Tyrell Lr MD) History of esophagogastroduodenoscopy (EGD) S/P rotator cuff repair Hx of colonoscopy Hx of breast augmentation Hx of LASIK History of left oophorectomy Hx of tubal ligation Hx of cholecystectomy Hx of umbilical hernia repair Family History (Updated 10/19/24 @ 09:17 by GERARDO Casas) Mother Diabetes Congestive heart failure Father Colon polyp Tachycardia Paternal Grandmother Colon cancer Colostomy care Tachycardia Social History Household Members: Spouse Housing: House Are you a primary pet care assistant to a significant other at home: No Do you presently have visiting nurse or other home services: No Patient Tobacco Use Status: Former Tobacco user service: No Behavioral Health Assessment Weight Management Therapy Therapy Notes Details Subjective: Patient underwent weight loss surgery last . She reports feeling hungry but is looking forward to introducing some solid foods next week. She notes having high energy levels and was able to return to work on Wednesday. Additionally, the patient shared that she adjusted her prescribed meal plan independently?after feeling that one scoop per shake was insufficient, she increased to two scoops based on her own research. Weight on day of surgery (12/14/2024): 187 lbs Post-op weight (12/21/2024): 179 lbs Objective: Patient presents for a post-operative follow-up visit. Reflective listening techniques were used to support patient engagement. Discussed her functional progress and current challenges with adhering to the recommended meal plan. Reinforced the importance of maintaining regular communication with the care team and being mindful of dietary decisions during this critical early stage of recovery to avoid potential complications. Assessment/Response: Mental Status: Within normal limits Risk Identified: No concerns related to self-harm or harm to others. However, the patient?s decision to modify her prescribed meal plan independently may pose a safety risk during the early post-operative phase. This was addressed during the visit. Questionnaires PHQ-9 Over the last 2 weeks, how often have you been bothered by any of the following problems? 1. Little interest or pleasure in doing things: not at all 2. Feeling down, depressed, or hopeless: not at all 3. Trouble falling or staying asleep, or sleeping too much: not at all 4. Feeling tired or having little energy: not at all 5. Poor appetite or overeating: not at all 6. Feeling bad about yourself - or that you are a failure or have let yourself or your family down: not at all 7. Trouble concentrating on things, such as reading the newspaper or watching television: not at all 8. Moving or speaking so slowly that other people could have noticed. Or the opposite - being so fidgety or restless that you have been moving around a lot more than usual: not at all 9. Thoughts that you would be better off or of hurting yourself in some way: not at all Total score: 0 Depression Screening Interpretation: Negative Depression Screening Done: Yes 48018 - PHQ-9 Billing: Yes Source: Developed by Drs. Keron Barker, Susu Ulloa, Hugh Varela and colleagues, with an educational mando from [employer]. Assessment & Plan Assessment & Plan (1) Adjustment disorder: Code(s): F43.20 - Adjustment disorder, unspecified (2) Pre-bariatric surgery psychological evaluation: Code(s): Z71.89 - Other specified counseling Plan Patient reports feeling well and confident in continuing her post-operative journey independently. She declined further behavioral health support at this time. Next Appointment: None scheduled. Telehealth Telehealth Telehealth Platform: [facility] Location of provider rendering services: other Location of patient: address on file Patient Identification confirmed using: Name, : Yes Telehealth method: voice only Patient verbally consented to treatment: Yes Patient verbally consented to billing insurance company: Yes Patient informed of any privacy concerns related to visit: Yes Minutes spent on Phone/Video with Pt.: 20 Coding Level of Care Code Established Pt Tele Psytx 30 mins ([id number]) Patient Type Established Diagnoses Adjustment disorder F43.20 Pre-bariatric surgery psychological evaluation Z71.89 Additional Codes PHQ-9 - 95447 - PHQ-9 Billing: Yes ([id number]) Time Spent (min) 20
--- OUTSIDE RECORDS SUMMARY | 2024-12-21 12:45 | XMS_ITS | Clinical Summary ---
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 Name Role Phone Unavailable Primary Care Provider [...] Adults 18 yrs or above (or HM Modifier)([facility]) 02/04/1984 Hepatitis C Virus Infection in Adolescents and Adults: Screening (or Modifier) ([facility]) 02/04/1984 [facility] Screening Reminder: Kaylene barahona for all adults ([facility]) 02/04/1984 Tobacco Smoking Cessation: i n Adults excluding Women: Behavioral and Pharmacotherapy Interventions ([facility]) 02/04/1984 Cervical Cancer Screenin 1-65 yrs of age (or Modifier) 1987 Cervical Cancer Screening: P ap every 3 yrs pts age 21-65 1987 Cervical Cancer: Pap Screeni ng with Modifier timing ([facility]) 1987 Cervical Cancer: hrHPV alone or with cotesting Pap for Pts 30-65yrs screening every 5yrs ([facility]) 1987 Colorectal Cancer Screening 45 -75 Yrs (or HM Modifier) 2011 Colorectal Cancer: FLEXIBLE SIGMOIDOSCOPY Screening every 5 yrs 2011 Colorectal Cancer: Fecal Imm unochemical Test (FIT) Annually [facility] 2011 Colorectal Cancer: High-sens itivity gFOBT Screening Annually [facility] 2011 Colorectal Cancer: Stool Col oguard Screening every 3 yrs 2011 Colorectal Cancer:CT Colonog owen Screening every 5 yrs 2011 Breast Cancer: Screening Kaylene ually age 50-74 yrs (or HM Modifier)([facility]) 02/04/2016 Pneumococcal Vaccination Scr eening: Patients 50+ yrs of age ([facility]) (1 of 1 - PCV) 02/04/2016 Zoster/Shingles Vaccine Seri es Screening: Adults aged 18+ yrs (or HM Modifiers)([facility]) (2 of 2) 06/13/2023 04/18/2023 COVID-19 Vaccine Screening: Initial Series and Booster Status ([facility]) ( - 2023- season) 2024 Flu Vaccination: Yearly for ages 18mos through 64 years (or Modifier)([facility]) 02/16/2025 DTaP/Tdap/Td Vaccines ([facility]) (2 - Td or Tdap) 04/17/2019 Medical Devices Not on file Insurance [facility]
== END 2024-12-21 10:50 | disposition home or self-care (01) ==
LOC: HO.HBST 10:50
PROVIDERS: Visit Provider Counselor Mental Health
DX: F43.20 Adjustment disorder, unspecified (principal); Z71.89 Other specified counseling
CPT/HCPCS: 90832

== ENCOUNTER → 2024-12-21 10:50 | Outpatient (BNVA) | payer BC, SELFPAY | PROVIDERS: Visit Provider Counselor Mental Health ==

== ENCOUNTER 2025-01-29 13:00 | Outpatient (AMB) | payer BC, SELFPAY ==
--- NOTE | 2025-01-29 11:33 | MHC.OFFVISWM ---
VS Expanded 01/29/25 11:34 Height 5 ft 5 in Weight 167 lb 8 oz BMI 27.9 Body Fat % 33.8 Fat Free Mass 111.2 Visceral Fat Rating 10 Body Water % 45.4 Muscle Mass/Score 104.4 Basal Metabolic Rate/Score 1,464 Intake Visit Reasons: (TV) PO LGS 12/14/24 Allergies codeine Allergy (Mild, Verified 12/14/24 08:05) Shakiness, Vomiting HPI Comments Details: This?a?59?yo female who is s/p LSG without hiatal hernia repair on?12/14/2024. Presents for 6 week post op visit. Weight today is 167.8 pounds, with a BMI of 27.9. There has been a 44 pound weight loss,(initial weight 211.8 pounds) since starting the program on 10/20/2024 reflecting a 20.7 % total body weight loss and a weight loss of 24.7 pounds since surgery (operative weight 192.5 pounds) reflecting a 12.8% TBWL since surgery. No complaints of nausea, emesis, abdominal pain or reflux. Reports infrequent but normal bowel movements every 2-3 days. Pt was given a meal plan by Dr Lr, but changed it on her own. She states she wants to lose about 16 more pounds. Went to [employer] website and followed their plans trying to get 60-80 grams protein per day. She switched from recommended plan to her plan about 3 weeks ago. Stating that she would like to have as much food option as possible. Her meal plan that she is doin-830 Celebrate rebuild 2 scoops w chiobani oat milk 10-1030 1/ c egg white w cottage cheese and spinach noon 1-2 oz chicken and 1-2 oz cooked veg 2 pm 2 oz bulgarian yogurt or portabella cheese 430-5 one protein bar meal at 7 1-2 oz chicken and 1-2 oz cooked veg Present recommended meal plan includes: (12/27/24) 2 Celebrate rebuild 1 scoop in 8 oz almond milk at 8-10, 11-1 celebrate bar 2-5 meal at 6 pm 3 forks protein and 3 forks veg celebrate rebuild 2 scoops 8-10 pm Drinking 30 oz water daily ? Exercise routine includes: treadmill at gym 4 x per week 1 hr 400 meagan weight training 4 days per week after [facility] Medical History (Updated 12/23/24 @ 00:02 by Background D[place]arj[place]) Hyperlipidemia Lower extremity edema Hypertension GERD (gastroesophageal reflux disease) DJD (degenerative joint disease) Pre-diabetes Pitting edema Obesity Hx of degenerative disc disease Surgical History (Updated 12/23/24 @ 00:02 by Background Daemon) History of esophagogastroduodenoscopy (EGD) S/P rotator cuff repair Hx of colonoscopy Hx of breast augmentation Hx of LASIK History of left oophorectomy Hx of tubal ligation Hx of cholecystectomy Hx of umbilical hernia repair Family History (Updated 10/19/24 @ 09:17 by GERARDO Casas) Mother Diabetes Congestive heart failure Father Colon polyp Tachycardia Paternal Grandmother Colon cancer Colostomy care Tachycardia Social History Household Members: Spouse Housing: House Are you a primary acute care clinical nurse specialist to a significant other at home: No Do you presently have visiting nurse or other home services: No Patient Tobacco Use Status: Former Tobacco user service: No Telehealth Telehealth Telehealth Platform: Telephone Location of provider rendering services: practice address Location of patient: address on file Patient Identification confirmed using: Name, : Yes Telehealth method: voice only Patient verbally consented to treatment: Yes Patient verbally consented to billing insurance company: Yes Patient informed of any privacy concerns related to visit: Yes Minutes spent on Phone/Video with Pt.: 25 Assessment & Plan Assessment & Plan (1) S/P laparoscopic sleeve gastrectomy: Code(s): Z98.84 - Bariatric surgery status Category: Surgical Plan: Patient created her own meal plan following information obtained on [employer] website. Discussed the risks in doing so. Additionally, discussed her decreased fluid intake. Recommended a celebrate rebuild shake with 2 scoops at lunchtime in place of the meal that she is having. Additionally increasing her fluid intake to 60 oz per day. She stated that she had a patient coming into her office and could not continue the conversation further. We will set her up for a follow-up appointment in approximately 1 month.
[2025-01-29 11:34] VITALS: BMI 27.9
--- OUTSIDE RECORDS SUMMARY | 2025-01-29 14:22 | XMS_ITS | Clinical Summary ---
Author Organization [facility] lin Address [address] [facility] [employer] [place] [address] Care Team Providers Care Manufacturing Supervisor Name Role Phone Unavailable Primary Care Provider [...] Adults 18 yrs or above (or HM Modifier)([facility]) 02/04/1984 Hepatitis C Virus Infection in Adolescents and Adults: Screening (or Modifier) ([facility]) 02/04/1984 [facility] Screening Reminder: Kaylene barahona for all adults ([facility]) 02/04/1984 Tobacco Smoking Cessation: i n Adults excluding Women: Behavioral and Pharmacotherapy Interventions ([facility]) 02/04/1984 Cervical Cancer Screenin 1-65 yrs of age (or Modifier) 1987 Cervical Cancer Screening: P ap every 3 yrs pts age 21-65 1987 Cervical Cancer: Pap Screeni ng with Modifier timing ([facility]) 1987 Cervical Cancer: hrHPV alone or with cotesting Pap for Pts 30-65yrs screening every 5yrs ([facility]) 1987 Colorectal Cancer Screening 45 -75 Yrs (or HM Modifier) 2011 Colorectal Cancer: FLEXIBLE SIGMOIDOSCOPY Screening every 5 yrs 2011 Colorectal Cancer: Fecal Imm unochemical Test (FIT) Annually [facility] 2011 Colorectal Cancer: High-sens itivity gFOBT Screening Annually [facility] 2011 Colorectal Cancer: Stool Col oguard Screening every 3 yrs 2011 Colorectal Cancer:CT Colonog owen Screening every 5 yrs 2011 Breast Cancer: Screening Kaylene ually age 50-74 yrs (or HM Modifier)([facility]) 02/04/2016 Pneumococcal Vaccination Scr eening: Patients 50+ yrs of age ([facility]) (1 of 1 - PCV) 02/04/2016 Zoster/Shingles Vaccine Seri es Screening: Adults aged 18+ yrs (or HM Modifiers)([facility]) (2 of 2) 06/13/2023 04/18/2023 COVID-19 Vaccine Screening: Initial Series and Booster Status ([facility]) ( - 2023- season) 2024 Flu Vaccination: Yearly for ages 18mos through 64 years (or Modifier)([facility]) 02/16/2025 DTaP/Tdap/Td Vaccines ([facility]) (2 - Td or Tdap) 04/17/2019 [employer] Devices Not on file Insurance [facility]
--- OUTSIDE RECORDS SUMMARY | 2025-01-29 14:22 | XMS_ITS | Referral Summary ---
Author Organization [facility] Address [address] [place] [address] Care Team Providers Care Forklift Operator Name Role Phone Unknown, Doctor Primary Care Provider Unavailabl e Encounters Date Type Department Care Team Description 12/08/2024 8:20 AM EDT - 12/08/2024 11:59 PM EDT Hospital Encounter [facility] Cardiac Ultrasound [address] [place] [address] [id number] Abnormal EKG Discharge Disposition: Home or Self Care (01) from Last 3 Months Social History Tobacco Use Types Packs/Day Years Used Date Smoking Tobacco: Never Assessed Comments Unknown Sex and Gender Information Value Date Recorded Sex Assigned at Female 12/08/2024 8:20 AM EDT Legal Sex Female 5:37 AM EDT Gender Identity Female 12/05/2024 11:00 AM EDT Sexual Orientation Straight 12/05/2024 11 :00 AM EDT Plan of Treatment Not on file Procedures * Due to [place] [employer] law, this organization might not be sharing negative HIV tests. Procedure Name Priority Date/Time Associated Diagnosis Comments ECHOCARDIOGRAM EXERCISE STRESS TEST W/ LIMITED DOPPLER AND COLOR Routine 12/08/2024 9:34 AM EDT Abnormal EKG ECG 12-LEAD Routine 11/01/2024 5:14 PM EDT Class 1 obesity with body mass index (BMI) of 34.0 to 34.9 in adult, unspecified obesity type, unspecified whether serious comorbidity present from Last 3 Months Results * Due to [place] [employer] law, this organization might not be sharing negative HIV tests. * ECHOCARDIOGRAM EXERCISE STRESS TEST W/ LIMITED DOPPLER AND COLOR (12/08/2024 9:34 AM EDT) Target HR 138 bpm Angina Index 0 Anatomical Region Laterality Modality Heart Other Narrative 12/08/2024 11:59 AM EDT Asymptomatic maximal treadmill stress echo with no echo evidence of inducible ischemia despite borderline abnormal ECG. Left Ventricle: Normal left ventricular systolic function. Left ventricular ejection fraction is in the normal range with visually estimated LVEF 60%. Patient completed 9 minutes of standard Hermelindo protocol achieving a maximum heart rate of 157 bpm (97% max predicted) and stopped due to fatigue. Left Ventricle The left ventricle size is normal. Normal left ventricular wall motion. Normal left ventricular systolic function. Left ventricular ejection fraction is in the normal range with visually estimated LVEF 60%. Right Ventricle Normal right ventricular systolic function. Mitral Valve Mitral valve structure is normal. Trace mitral regurgitation. No mitral stenosis. Tricuspid Valve Tricuspid valve structure is normal. Trace tricuspid regurgitation. No tricuspid stenosis. Aortic Valve There is a trileaflet aortic valve. Mild aortic regurgitation. No aortic stenosis. Pericardium No pericardial effusion. Study Details Study quality was adequate. The apical and parasternal views were obtained.Left ventricle image acquisition obtained within 90 seconds post-stress. Patient exhibited sinus rhythm. Stress Findings The patient exercised according to the Hermelindo protocol. The patient's exercise capacity was good for their age and sex, reaching stage 3 of the protocol. The patient experienced no angina during the test. Dr. Mary Quinones was immediately available for assistance and direction during the test.The patient reported no symptoms during the stress test. The test was stopped because the patient experienced fatigue. The target heart rate was 138 bpm. The blood pressure was normal at baseline and ezekiel appropriately with stress the heart rate demonstrated a normal response to stress. The patient's heart rate recovery was normal. ECG Resting ECG: Normal sinus rhythm. Stress EC.5-1 horizontal/upsloping ST depression observed during exercise. No arrhythmias. The ECG was equivocal for ischemia. Echo Post Stress Left ventricle at peak stress: Size is reduced. EF by visual approximation is 70 - 75%. Wall Scoring Resting Score Index: 1.00 The left ventricular wall motion is normal. Wall Scoring Peak Dose Score Index: 1.00 The left ventricular wall motion is globally hyperkinetic. us Tyrell Raftosiel CV ECHO PROCEDURES Final Res ult * ECG 12 lead (11/01/2024 5:14 PM EDT) Ventricular Rate EKG 61 BPM MUSE EKG Atrial Rate 61 BPM MUSE EKG AZ Interval 150 ms MUSE EKG QRS Interval 94 ms MUSE EKG QT Interval 402 ms MUSE EKG QTC Interval 404 ms MUSE EKG R [place] 202 degrees MUSE EKG T Wave [place] 163 degrees MUSE EKG 11/01/2024 5:14 PM EDT 11/08/2024 12:41 PM EDT Impressions MUSE EKG - 11/08/2024 12:41 PM EDT limb Lead reversal Normal sinus rhythm Incomplete right bundle branch block T wave abnormality, consider inferior ischemia Abnormal ECG Confirmed by Sahil Burkett ([id number]) on 11/08/2024 12:41:41 PM [facility] ECG ORDERABLES Final Result MUSE EKG from Last 3 Months Insurance [facility] PPO/EPO [facility] PPO/EPO Care Teams Forklift Operator Relationship Specialty Start Date End Date Unknown, Doctor Unknown Unknown, LOGAN PCP - General 11/01/24
--- OUTSIDE RECORDS SUMMARY | 2025-01-29 14:22 | XMS_ITS | Data Portability ---
Author Organization [place] - [facility], [facility] - [facility]PATIENT Address [address] [place] [address] Care Team Providers Care Director Of Cardiopulmonary Services Name Role Phone JULIUS FLOREZ Primary Care Provider [phone] Assessment No assessment recorded. Plan of Treatment Reminders Order Date Submit Date Provider Last Modified By Organization Details Last Modified Time Details Appointments None recorded. Lab None recorded. Referral physical therapist referral - S/P Arthrosco pic Cuff Repair-Le ft Shoulder 2023 024 [email or web address] [facility]), [address], [place], [address], 4 11:14:48 physical therapist referral - S/P Arthrosco pic Cuff Repair-Le ft Shoulder 2023 024 [facility] 2 [facility]), [address], [place], [address], 4 13:38:56 physical therapist referral - S/P LEFT Arthrosco pic Cuff Repair 2023 024 LAURA [facility]), [address], [place], [address], 4 15:27:23 Procedures None recorded. Surgeries None recorded. Imaging None recorded. Medication Orders Celebrex 200 mg capsule [email or web address] [id number], [address] [place] [address], [address], 13:26:02 tramadol 50 mg tablet 2023 024 [id number], [address] [place] [address], [address], 13:37:14 tramadol 50 mg tablet 2023 024 [id number], [address] [place] [address], [id number], 13:37:14 Patient TargetsNo targets recorded. Patient InstructionsNo instructions recorded. Reason for Referral Physical Therapist Referral for Rupture of rotator cuff of left shoulder POST OP REHAB S/P LEFT Arthroscopic Cuff Repair IF BICEP TENODESIS: NO ACTIVE ELBOW FLEXION X 3WEEKS NO RESISITED ELBOW FLEXION X 8 WEEKS Referring Physician: Saundra Chase, Physician Herbarium Curator, Encounter Date: 02/11/2024 Physical Therapist Referral for [...] Time 4 Orthopaedic Surgery completed Donnie Joy [facility] 02/11/2024 13:20:10 5 Other completed Murali Bowie [facility] 10/29/2023 08:58:29 Imaging Results None recorded. Procedure Notes None recorded. Medical Equipment None Reported. Allergies Allergen ID Allergen Name Allergen Category Reaction Reaction Severity Criticality Documentation Date Start Date Code Code System Note Provider Name and Address Organization Details Recorded Time [id number] codeine medicatio n Not available Not available Not available 10/29/2023 2670 RxNorm Murali mora [facility] 08:58:21 Medications Name Sig Start Date Stop [...] Not Available Not Available No t Available oxycodone 5 mg tablet Take 1 tabs every 4-6 hours by oral route PRN pain. 02/10 completed POST OP PAIN MED Not Available Not Available Not Available finasterid e active Not Available Not Available Not Available diclofenac sodium active Not Available Not Available Not Available Tylenol active prn Not Available Not Avail able Not Available Vitals Date Recorded Body height Provider Name an d Address Organization Details Last Updated DateTime 08/31/2024 170.18 cm [facility] 17:02:54 Date Recorded Body height Provider Name an d Address Organization Details Last Updated DateTime 02/11/2024 170.18 cm [facility] 02/11/2024 13:19:44 Date Recorded Body height Body mass index (BMI) Body weight Provider Name and Address Organization Details Last Updated DateTime 03/14/2024 170.18 cm 28.2 kg/m2 66613.63 g Shea Diaz [facility] 03/14/2024 12:52:38 Date Recorded Body height Provider Name an d Address Organization Details Last Updated DateTime 04/25/2024 170.18 cm Shea Amos [facility] 04/25/2024 13:37:04 Date Recorded Body height Provider Name an d Address Organization Details Last Updated DateTime 06/27/2024 170.18 cm Josefina Kong [facility] 06/27/2024 13:17:05 Social History Question Answer Notes LastModified by Organizat ion Details LastModified Time Tobacco Smoking Status Former Smoker Murali mora [facility] 10/29/2023 08:58:26 How Many Times Per Week Do You Exercise? 1-2 Times Per Week Information not available 03/14/2024 How Much Tobacco Do You Smoke? No [email or web address] Information not available 10/29/2023 How Many Years Have You Smoked Tobacco? 10 Information not available 03/14/2024 Sex: Unknown Functional Status Question Answer Note LastModified by Organizat ion Details LastModified Time What is your level of alcohol consumption? None [email or web address] Information not available 10/29/2023 Do you or have you ever used smokeless tobacco? Never used smokeless tobacco [email or web address] Information not available 10/29/2023 Are you currently employed? 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 Never used electronic cigarettes [email or web address] Information not available 10/29/2023 What is your [...] Asthma / Shortness of Breath / Sleep Salvage Machine Operator ea (please specify) N Pulmonary Embolism N Gynecological HistoryNo gynecological history recorded. Obstetrics History GPAL:G 0 P 0 0 0 0 Past Encounters Encounter ID Performer Location Encounter Start Date Encounter Closed Date Diagnosis/Indication Diagnosis SNOMED-CT Code Diagnosis ICD10 Code Diagnosis Note [id number] RASHMI DEL VALLE [facility] [address] [place] [phone] 10/29/2023 08:21:29 10/29/2023 09:25:25 Bursitis of left shoulder 1956087325 66065 M75.52 [id number] RASHMI DEL VALLE [address] [address] 11/08/2023 14:12:08 11/08/2023 15:05:40 Strain of rotator cuff of shoulder 137666684 S46.012A [id number] GERTRUDE LUCIA MD [facility] [address] [place] [address] 11/11/2023 13:25:14 11/11/2023 14:52:31 Bursitis of left shoulder 4835417151 12038 M75.52 Impingemen t syndrome of left shoulder region 0440144985 68540 M75.42 Pain of ri ght shoulder joint 8723641463 4859464 M25.511 Strain of rotator cuff of shoulder 658836113 S46.011A [id number] RASHMI DEL VALLE [facility] [address] [place] [address] 12/02/2023 09:45:14 12/02/2023 11:30:03 Bone spur of left shoulder 2295911656 56377 M25.712 Impingemen t syndrome of left shoulder region 5094060895 45620 M75.42 [id number] RASHMI DEL VALLE [facility] [address] [facility],[address] [address] 02/11/2024 13:00:48 02/11/2024 13:59:33 Pain of left shoulder joint 9134699998 9508440 M25.512 Rupture of rotator cuff of left shoulder 5405175834 2594404 M75.102 Pain of oulder region 03583159 M25.524 [id number] GERTRUDE LUCIA MD [facility] [address] [address] 03/14/2024 12:47:57 03/14/2024 13:38:56 Strain of rotator cuff of shoulder 901084829 S46.012A Pain of oulder region 75494642 M25.599 [id number] GERTRUDE LUCIA MD [facility] [address] [address] 04/25/2024 13:34:23 04/25/2024 13:59:12 Strain of rotator cuff of shoulder 689464338 S46.012D [id number] GERTRUDE LUCIA MD [facility] [address] [address] 06/27/2024 13:08:38 06/27/2024 14:00:23 Bursitis of left shoulder 6046253587 43813 M75.52 Bone spur of left shoulder 5537199472 79520 M25.712 Impingemen t syndrome of left shoulder region 4824775020 07269 M75.42 Strain of rotator cuff of shoulder 625047825 S46.012D [id number] Gertrude Lucia MD [place] [facility] [address], [address] [place] [address] 08/31/2024 17:02:38 08/31/2024 18:04:43 Strain of rotator cuff of shoulder 608258511 S46.011D Health Concerns Section Related Observation LastModified by Organization Detai ls LastModified Time None Recorded Concern Status LastModified by Organization Details LastModified Time None Recorded Advance Directives Directive None Recorded Payers Insurance Date Sequence Insurance Name Policy Number Policy Jin Covered Member ID Jin Member ID Guarantor Name 10/22/2023 1 [facility] [id number] Herminio Leonard [id number] Shikha Leonard 10/02/2024 1 [place] [id number] Herminio Destini Leonard [id number] Shikha Leonard Notes Date Note Type [...] weeks with Dr. Lucia. RASHMI DEL VALLE [address] [place] [address], [phone], [facility] 02/15/2024 17:37:34 03/14/2024 text/html Shikha comes in today, doing okay. She is very protective of the shoulder that is a bit stiff, so I have encouraged her to wean out of the sling, really work on stretching. Continue physical therapy. Back in 6 weeks. GERTRUDE LUCIA MD [address] [place] [address], [phone], [facility] 03/15/2024 08:20:55 04/25/2024 text/html Shikha is doing great 3 months out, full range of motion, minimal discomfort. Very happy with where she is. Continue PT. Let us add some massage for rhomboid pain and recheck in 2 months. GERTRUDE LUCIA MD [address] [place] [address], [phone], [facility] 04/26/2024 08:24:44 06/27/2024 text/html Shikha comes in today 5 months out, doing remarkably well. She has full range of motion. No pain. She is very happy with her progress. Home exercise program. Recheck via telehealth in 2 months. GERTRUDE LUCIA MD [address] [place] [address], [phone], [facility] 06/28/2024 10:53:21 08/31/2024 text/html Shikha is a wvov-sec-n-half months out from repair of the rotator cuff, doing great. She has great motion except for internal rotation is improving, but she has no pain. She can continue home exercise program. Follow up p.r.n., [id number] encounter. This visit was conducted as a real time interactive TeleHealth audio & visual via [employer]. The patient was identified by name and date of and consented to this TeleHealth visit. The patient was at their home in [place] and I was at my [place] office. Participants of the telehealth visit included myself and the patient. This was done over the course of 10 minutes including record review. Gertrude Lucia MD [address] [place] [address], [phone], [facility] 09/01/2024 08:04:46 OBGyn Episode No OBEpisode recorded.
--- OUTSIDE RECORDS SUMMARY | 2025-01-29 14:22 | XMS_ITS | Encounter Summary ---
Author Organization [facility]: [facility] Address [address] [place] [address] Care Team Providers Care Potter Or Ceramic Artist Name Role Phone Generic, Provider Primary Care Provider [id number] Encounter Details Date Type Department Care Team (Late st Contact Info) Description 12/24/[address] 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
--- OUTSIDE RECORDS SUMMARY | 2025-01-29 14:22 | XMS_ITS | Clinical Summary ---
Author Organization [facility] Address [address] [place] [address] Care Team Providers Care Draw Bench Operator Name Role Phone Yas Alvarez MD Primary Care Provider [phone] Allergies Active Allergy Reactions Criticality Noted Date [...] 98 01/02/2024 11:18 AM EDT Temperature 37.2 C (99 F) 01/02/2024 11:18 AM EDT Respiratory Rate - [...] COVID-19 Vaccine ( season) 2024 Influenza (#1) 2025 Bone Density Discontinued 09/02/2022 LDL Cholesterol Discontinued [...] complete this topic Procedures * Due to [place] law, this organization might not be sharing negative HIV tests. Procedure Name Priority Date/Time Associated Diagnosis Comments DXA BONE DENSITY STUDY AXIAL (LSSPINE, HIP) (DX: OSTEOPENIA) Routine 09/02/2022 3:30 PM EST MAMMOGRAM SCREENING TOMOSYNTHESIS, BILATERAL Routine 09/02/2022 3:23 PM EST Breast cancer screening by mammogram from Last 3 Months or Most Recently Relevant to Health Maintenance Results * Due to [place] [employer] law, this organization might not be sharing [...] webpage: http://www.shef.ac.uk/FRAX/. WHO DIAGNOSTIC CRITERIA: (Applicable for postmenopausal women and men age 50 and older.) Normal: T-score at or above -1 SD Osteopenia: T-score between -1 and -2.5 SD Osteoporosis: T-score at or below -2.5 SD Established (Severe) Osteoporosis : T-score at or below -2.5 SD plus fragility fracture Narrative 09/03/2022 10:15 AM EST DUAL-ENERGY X-RAY ABSORPTIOMETRY (DXA) SCAN: DXA MODEL: [employer] Plus A in fast scan mode RISK FACTORS: The patient reports parent with a hip fracture. TREATMENT: The patient reports none. LIMITATIONS: Degenerative changes appear to be present in the lumbar spine which may cause an artifactual increase in BMD. RESULTS: Lumbar Spine L1-L4: 1.139 g/cm2, T-score 0.8, Z-score 2.0 Right femoral Neck: 0.663 g/cm2, T- score -1.7, Z-score -0.6 Right Total Hip: 0.882 g/cm2, T-score -0.5, Z-score 0.3 FRAX 10-year Fracture Risk: Major osteoporotic fracture 14% and hip fracture 0.6% Yas Alvarez MD IMG DEXA IMAGING Final Result * MAMMOGRAM SCREENING TOMOSYNTHESIS, BILATERAL FC (09/02/2022 3:23 PM EST) Anatomical Region Laterality Modality BREAST Bilateral Mammography Impressions 09/09/2022 3:42 PM EST : No mammographic evidence of malignancy BI-RADS: 1 - Negative (overall) RECOMMENDATION: - Routine Screening Mammogram. A result letter has [...] calcifications or areas of unexplained architectural distortion. Implants are unremarkable. Yas Alvarez MD IMG MAMMO ORDERABLES Final Res ult from Last 3 Months or Most Recently Relevant to Health Maintenance Insurance [employer] FEE FOR SERV[employer] PPO Care Teams Draw Bench Operator Relationship Specialty Start Date End Date Yas Alvarez MD [address] [address] PCP - General Internal Medicine 08/07/22
--- OUTSIDE RECORDS SUMMARY | 2025-01-29 14:22 | XMS_ITS | Clinical Summary ---
Author Organization [facility] Address [address] [facility] [address] [place] [address] Care Team Providers Care Metal Checker Name Role Phone No Pcp, Per Patient Primary Care Provider Unavai lable Allergies Active Allergy Reactions Criticality Noted Date Comments Codeine High 04/24/2024 Medications ibuprofen 100 mg chewable tablet Chew 400 mg every 8 (eight) hours if needed for pain score 1-3. Active minoxidil (Loniten) 2.5 mg tabletIndicati ons:Androgenet ic alopecia TAKE 1/2 TABLET NIGHTLY BY MOUTH. 45 tablet 2 5 Active finasteride (Proscar) 5 mg tabletIndicati ons:Androgenet ic alopecia TAKE 1 TABLET BY MOUTH DAILY BY MOUTH. 90 tablet 5 Active minoxidil (Loniten) 2.5 mg tabletIndicati ons:Androgenet ic alopecia Take 1/2 tablet nightly by mouth. 45 tablet 2 4 01/12/20 25 Discontinued finasteride (Proscar) 5 mg tabletIndicati ons:Androgenet ic alopecia TAKE 1 TABLET BY MOUTH DAILY BY MOUTH. 90 tablet 5 01/12/20 25 Discontinued Active Problems No known active problems Encounters Date Type Department Care Team Description 01/11/2025 Refill [facility] [address] [place] [address] Jade Jernigan MD Androgenetic alopecia 11/13/2024 4:00 PM EDT Office Visit [facility] [address] [place] [address] Jade Jernigan MD Androgenetic alopecia (Primary Dx) [...] Info) Description 05/28/2025 12:45 PM EST Telemedicine [facility] [address] [place] [address] Jade Jernigan MD [address] [place] [address] Health Maintenance Due Date Last Done Comments [...] 07/19/2024 Mammogram 09/02/2024 09/02/2022, 09/02/2022 Influenza Vaccine (#1) 2025 Cervical Cancer Screening 07/27/2025 Pap Smear [...] patient's age to complete this topic Insurance [facility] PPO Care Teams Metal Checker Relationship Specialty Start Date End Date No Pcp, Per Patient NE PCP - General Custom Furrier 04/24/24
--- OUTSIDE RECORDS SUMMARY | 2025-01-29 14:22 | XMS_ITS | Patient Health Record ---
Author Organization [facility] Address [address] [place] [address] Care Team Providers Care Briquetting Machine Operator Name Role Phone Jai Watts MD Primary Care Provider UnavailJohn Zepeda Unavailable [phone] Allergies Allergen (clinical drug ingredient) Drug/Non Drug Allergy documented on EMR Reaction Allergy Type Onset Date Status codeine Codeine Unknown Drug Allergy Active Reason For Referral No Information Social History Tobacco Use: Social History Observation Description Date Details (start date - stop date) Never Smoker NA - NA Tobacco Use Question Answer Notes Do you smoke? 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 Nonsmoker
== END 2025-01-29 13:33 | disposition home or self-care (01) ==
LOC: HO.HBS 13:16
PROVIDERS: Visit Provider Physician Assistant Surgical
DX: Z98.84 Bariatric surgery status (principal)
CPT/HCPCS: 99024

== ENCOUNTER 2025-03-01 08:52 | Outpatient (AMB) | payer BC, SELFPAY ==
--- NOTE | 2025-03-01 08:23 | A.OFFVIS_ITS ---
VS Expanded 03/01/25 08:32 Height 5 ft 5 in Weight 160 lb 2 oz BMI 26.6 Intake Visit Reasons: (TV) PO LGS 12/14/24-see note Allergies codeine Allergy (Mild, Verified 12/14/24 08:05) Shakiness, Vomiting HPI Comments Details: This?a?60?yo female who is s/p LSG without hiatal hernia repair on?12/14/2024. Presents for 2.5 month post op visit. Weight today is 160.2 pounds, with a BMI of 26.6. There has been a 51.6 pound weight loss,(initial weight 211.8 pounds) since starting the program on 10/20/2024 reflecting a 24.3 % total body weight loss and a weight loss of 24.7 pounds since surgery (operative weight 192.5 pounds) reflecting a 12.8% TBWL since surgery. No complaints of nausea, emesis, abdominal pain or reflux. Reports infrequent but normal bowel movements every 2- 3 days. Pt was given a meal plan by Dr Lr, but changed it on her own. Went to [employer] website and followed their plans trying to get 60-80 grams protein per day. She switched from recommended plan to her plan about 3 weeks ago. Stating that she would like to have as much food option as possible. She states she feels amazing and down to a size 8. States her goal weight is 140. Taking MVI daily, B1, B12 and neutrafol. Her meal plan that she is doin-830 Celebrate rebuild 2 scoops w chiobani oat milk 10-1030 07/21 c egg white w cottage cheese and spinach 1-130, 1.5 -2 oz chicken and 1-2 oz cooked veg/ or salad 3-430 pm 2 oz maltese yogurt or portabella cheese w piece of banana meal at 630 2 oz chicken and 2 oz cooked veg Drinking 45-50 oz daily Present recommended meal plan includes: (12/27/24) 2 Celebrate rebuild 1 scoop in 8 oz almond milk at 8-10, 11-1 celebrate bar 2-5 meal at 6 pm 3 forks protein and 3 forks veg celebrate rebuild 2 scoops 8-10 pm ? Exercise routine includes: treadmill at gym 4 x per week 1 hr 400 meagan weight training 4 days per week after PFS Medical History Hyperlipidemia Lower extremity edema Hypertension GERD (gastroesophageal reflux disease) DJD (degenerative joint disease) Pre-diabetes Pitting edema Obesity Hx of degenerative disc disease Surgical History History of esophagogastroduodenoscopy (EGD) S/P rotator cuff repair Hx of colonoscopy Hx of breast augmentation Hx of LASIK History of left oophorectomy Hx of tubal ligation Hx of cholecystectomy Hx of umbilical hernia repair Family History Mother Diabetes Congestive heart failure Father Colon polyp Tachycardia Paternal Grandmother Colon cancer Colostomy care Tachycardia Social History Household Members: Spouse Housing: House Are you a primary urgent care physician assistant to a significant other at home: No Do you presently have visiting nurse or other home services: No Patient Tobacco Use Status: Former Tobacco user service: No Telehealth Telehealth Telehealth Platform: Telephone Location of provider rendering services: practice address Location of patient: address on file Patient Identification confirmed using: Name, : Yes Telehealth method: voice only Patient verbally consented to treatment: Yes Patient verbally consented to billing insurance company: Yes Patient informed of any privacy concerns related to visit: Yes Minutes spent on Phone/Video with Pt.: 15 Assessment & Plan Assessment & Plan (1) S/P laparoscopic sleeve gastrectomy: Code(s): Z98.84 - Bariatric surgery status Category: Surgical Plan: Patient has not been following the recommended meal plan from Dr. Lr, she would prefer to have a whole food diet. She used the [employer] website as a guide. She is improving in her statistics by way of her body composition scale. She continues multivitamin and vitamin supplements. We will have her return to the office in 6 weeks. Additionally, encouraged to continue exercise, rotating different cardiovascular machines as she states she is getting bored with the treadmill, suggested treadmill, stationary bike, elliptical, rowing machine on a daily basis. She is overall very satisfied with the results of her procedure and states that she feels amazing.
[2025-03-01 08:32] VITALS: BMI 26.6
--- OUTSIDE RECORDS SUMMARY | 2025-03-01 09:14 | XMS_ITS | Clinical Summary ---
Author Organization [facility]: 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 Not on file Not [...] of 3 - 19+ 3-dose series) 1985 Cervical Cancer Screening 1987 Colonoscopy 2011 Colorectal Cancer Screening 2011 FIT-DNA 2011 FIT 2011 FOBT 2011 Flexible Sigmoidoscopy 2011 Pneumococcal Vaccine: 50+ Ye ars (1 of 1 - PCV) 02/04/2016 Zoster (Shingles) Vaccines ( 1 of 2) 02/04/2016 COVID-19 Vaccine ( - 2023-2 5 season) 2024 Influenza Vaccine (#1) 2025 Screening Mammogram Discontinued 07/18/2008 HIB Vaccines [...] topic Insurance [employer] Care Teams Art Objects Supervisor Relationship Specialty Start Date End Date Generic, Provider [address] [address] PCP - General Generic/Test/No PCP 09/06/12
--- OUTSIDE RECORDS SUMMARY | 2025-03-01 09:14 | XMS_ITS | Clinical Summary ---
Author Organization [facility] Address [address] [place] [address] Care Team Providers Care Chips Screen Tender Name Role Phone Unknown, Doctor Primary Care Provider Unavailabl e Encounters Date Type Department Care Team Description 12/08/2024 8:20 AM EDT - 12/08/2024 11:59 PM EDT Hospital Encounter [facility] Cardiac Ultrasound [address] [place] [address] Abnormal EKG Discharge Disposition: Home or Self [...] 11 :00 AM EDT Plan of Treatment Health Maintenance Due [...] Screening 07/19/2024 Depression Screening and Follow-Up 07/19/2024 [facility] Kaylene ual Screening 07/19/2024 Mammogram 09/02/2024 09/02/2022 Influenza Vaccine (#1) 2025 DTaP,Tdap,and Td Vaccines (2 - Td or Tdap) 04/17/2029 04/17/2019 RSV Vaccine (60+ years old and patients) (1 - 1-dose 75+ series) 2041 Zoster Vaccines Completed 08/04/2023, 04/18/2023 Procedures * Due to [place] [employer] law, this organization might not be sharing negative HIV tests. Procedure Name Priority Date/Time Associated Diagnosis Comments ECHOCARDIOGRAM EXERCISE STRESS TEST W/ LIMITED DOPPLER AND COLOR Routine 12/08/2024 9:34 AM EDT Abnormal EKG from Last 3 Months Results * Due to [place] [employer] law, this organization might not be sharing [...] left ventricular wall motion is globally hyperkinetic. Tyrell Lr CV ECHO PROCEDURES Final Res ult from Last 3 Months Insurance [facility] PPO/EPO [facility] PPO/EPO Care Teams Chips Screen Tender Relationship Specialty Start Date End Date Unknown, Doctor Unknown Unknown, LOGAN PCP - General 11/01/24
--- OUTSIDE RECORDS SUMMARY | 2025-03-01 09:15 | XMS_ITS | Clinical Summary ---
Author Organization [facility] Address [address] [place] [address] Care Team Providers Care Metal Roofing Mechanic Name Role Phone No Pcp, Per Patient Primary Care Provider Unavai lable Allergies Active Allergy Reactions Criticality Noted Date Comments Codeine High 04/24/2024 Medications ibuprofen 100 mg chewable tablet Chew 400 mg every 8 (eight) hours if needed for pain score 1-3. Active minoxidil (Loniten) 2.5 mg tabletIndicatio ns:Androgenetic alopecia TAKE 1/2 TABLET NIGHTLY BY MOUTH. 45 tablet 2 01/11/2025 Active finasteride (Proscar) 5 mg tabletIndicatio ns:Androgenetic alopecia TAKE 1 TABLET BY MOUTH DAILY BY MOUTH. 90 tablet 01/11/2025 Active Active Problems No known active problems Encounters Date Type Department Care Team Description 01/11/2025 Refill [facility] Dermatology [address] [place] [address] Jade Jernigan MD Androgenetic alopecia from Last 3 Months Social History Tobacco [...] Info) Description 05/28/2025 12:45 PM EST Telemedicine [facility] Dermatology [address] [place] [address] Jade Jernigan MD [address] [place] [address] Health Maintenance Due Date Last Done Comments CT Colonography 1966 Colonoscopy 1966 Colorectal Cancer Screening 1966 FIT-DNA 1966 FIT 1966 FOBT 1966 HIV Screening 1966 Sigmoidoscopy 1966 Hepatitis B Vaccines (1 of 3 - 19+ 3-dose series) 1985 HPV/Cotest 02/04/1996 Pneumococcal Vaccine: 50+ Years (1 of 1 - PCV) 02/04/2016 COVID-19 Vaccine (4 - season) 2024 07/15/2021, 09/28/2020, 08/31/2020 Depression [...] patient's age to complete this topic Insurance [employer] [facility] PPO Care Teams Metal Roofing Mechanic Relationship Specialty Start Date End Date No Pcp, Per Patient [place] PCP - General Tsa Screener 04/24/24
--- OUTSIDE RECORDS SUMMARY | 2025-03-01 09:15 | XMS_ITS | Patient Health Record ---
Author Organization [facility] Address [address] [place] [id number] Care Team Providers Care Band Tier Name Role Phone Jai Watts MD Primary Care Provider UnavailJohn Zepeda Unavailable [phone] Allergies Allergen (clinical drug ingredient) Drug/Non Drug [...] Problem Status W/U Status Risk Notes Problem Pain due to varicose veins of lower extremity (211879632) Varicose veins of both lower extremities with pain (I83.813) Active confirmed Plan Of Treatment No Information Insurance Providers Payer Name Payer Address Payer Phone Subscriber Number Group Number Insured Name Patient Relationship to Insured Coverage Start Date Coverage End Date BC Fed [address] [place] [address] [id number] Herminio Leonard Spouse - patient is the spouse of the insured Medical (General) History Medical History History ICD Code 1.Edema 2. Nonsmoker
--- OUTSIDE RECORDS SUMMARY | 2025-03-01 09:15 | XMS_ITS | Clinical Summary ---
Author Organization [facility] Address [address] [place] [address] Care Team Providers Care Allergist/Pediatric Pulmonologist Name Role Phone Yas Alvarez MD Primary Care Provider [phone] Allergies Active Allergy Reactions Criticality Noted Date [...] Cholesterol Discontinued 08/12/2023, 03/2023, 02/07/2019 HPV Vaccine (No Doses Required) Completed Hep A Aged Out No longer eligi ble based on patient's age to complete this topic Hib Aged Out No longer eligi ble based on patient's age to complete this topic Meningococcal ACWY Aged Out No longer eligible based on patient's age to complete this topic Procedures * Due to [place] [employer] law, this organization might not be sharing negative HIV tests. Procedure Name Priority Date/Time Associated Diagnosis Comments DXA BONE DENSITY STUDY AXIAL (LSSPINE, HIP) (DX: OSTEOPENIA) Routine 09/02/2022 3:30 PM EST MAMMOGRAM SCREENING TOMOSYNTHESIS, BILATERAL Routine 09/02/2022 3:23 PM EST Breast cancer screening by mammogram from Last 3 Months or Most Recently Relevant to Health Maintenance Results * Due to [place] [employer] law, this organization might not be sharing [...] DUAL-ENERGY X-RAY ABSORPTIOMETRY (DXA) SCAN: DXA MODEL: [employer] A in fast scan mode RISK FACTORS: [...] osteoporotic fracture 14% and hip fracture 0.6% us Yas Alvarez MD IMG DEXA IMAGING Final [...] Most Recently Relevant to Health Maintenance Insurance [facility] FEE FOR SERVICE PPO Care Teams Allergist/Pediatric Pulmonologist Relationship Specialty Start Date End Date Yas Alvarez MD [address] [address] PCP - General Internal Medicine 08/07/22
--- OUTSIDE RECORDS SUMMARY | 2025-03-01 09:15 | XMS_ITS | Clinical Summary ---
Author Organization [facility] Address [address] [facility] [place] [address] Care Team Providers Care Site Director Name Role Phone Unavailable Primary Care Provider [...] Adults 18 yrs or above (or HM Modifier)([facility]) 02/04/1984 Hepatitis C Virus Infection in Adolescents and Adults: Screening (or Modifier) ([facility]) 02/04/1984 [facility] Screening Reminder: Kaylene barahona for all adults ([facility]) 02/04/1984 Tobacco Smoking Cessation: i n Adults excluding Women: Behavioral and Pharmacotherapy Interventions ([facility]) 02/04/1984 Cervical Cancer Screenin 1-65 yrs of age (or Modifier) 1987 Cervical Cancer Screening: P ap every 3 yrs pts age 21-65 1987 Cervical Cancer: Pap Screeni ng with Modifier timing ([facility]) 1987 Cervical Cancer: hrHPV alone or with cotesting Pap for Pts 30-65yrs screening every 5yrs ([facility]) 1987 Colorectal Cancer Screening 45 -75 Yrs (or HM Modifier) 2011 Colorectal Cancer: FLEXIBLE SIGMOIDOSCOPY Screening every 5 yrs 2011 Colorectal Cancer: Fecal Imm unochemical Test (FIT) Annually [facility] 2011 Colorectal Cancer: High-sens itivity gFOBT Screening Annually [facility] 2011 Colorectal Cancer: Stool Col oguard Screening every 3 yrs 2011 Colorectal Cancer:CT Colonog owen Screening every 5 yrs 2011 Breast Cancer: Screening Kaylene ually age 50-74 yrs (or HM Modifier)([facility]) 02/04/2016 Pneumococcal Vaccination Scr eening: Patients 50+ yrs of age ([facility]) (1 of 1 - PCV) 02/04/2016 Zoster/Shingles Vaccine Seri es Screening: Adults aged 18+ yrs (or HM Modifiers)([facility]) (2 of 2) 06/13/2023 04/18/2023 COVID-19 Vaccine Screening: Initial Series and Booster Status ([facility]) ( - 2023- season) 2024 Flu Vaccination: Yearly for ages 18mos through 64 years (or Modifier)([facility]) 02/16/2025 DTaP/Tdap/Td Vaccines ([facility]) (2 - Td or Tdap) 04/17/2019 Medical Devices Not on file Insurance [facility]
--- OUTSIDE RECORDS SUMMARY | 2025-03-01 09:15 | XMS_ITS | Clinical Summary ---
Author Organization [facility] Address [address] [place] [address] Phone Care Team Providers Care Resident Care Aid Name Role Phone Yas Alvarez MD Primary Care Provider [phone] Yas Alvarez MD Unavailable [phone] Allergies Active Allergy Reactions Criticality Noted Date Comments Codeine 02/07/2019 Medications diclofenac sodium (VOLTAREN) 75 MG EC tablet TAKE 1 TABLET BY MOUTH TWICE A DAY NEEDED 60 tablet 5 5 Active finasteride (PROSCAR) 5 mg tablet Take 5 mg by mouth daily. 5 Active hydroCHLOROthi azide 12.5 mg capsuleIndicat ions:Leg swelling TAKE 1 CAPSULE (12.5 MG TOTAL) BY MOUTH DAILY NEEDED (LEG SWELLING). 90 capsule 3 5 Active ergocalciferol (DRISDOL) 50,000 unit capsule TAKE 1 CAPSULE BY MOUTH ONE TIME PER WEEK 8 capsule 5 5 Active ergocalciferol (DRISDOL) 50,000 unit capsule take 1 capsule by mouth one time per week 8 capsule 5 4 02/20/20 25 Discontinued Active Problems Problem Noted Date Diagnosed Date [...] procedure Will fax note to: Dr. Lucia [phone]. Will send labs with the note Hyperlipidemia 08/03/2023 Assessment & Plan (10/19/2024 8:25 AM EDT): Recheck lipid panel Low fat diet, weight loss Grief reaction 01/01/2023 Assessment & Plan (01/01/2023 1:54 PM EDT): Low mood due to grief I recommend she speak with a therapist [facility] to [facility] to find someone, she would prefer to [...] Encounters Date Type Department Care Team Description 02/18/2025 Refill [facility] [address] [address] Yas Alvarez MD Medication Refill 02/02/2025 Orders Only [address] [address] ProviderBud MD 01/13/2025 Refill [facility] [address] [place] [address] Claire John, KIKE Medication Refill from Last 3 Months Immunizations Immunization Administration Dates Next Due Hepatitis A, Adult [...] with a working camera? Not on file Comments Unknown Sex and Gender Information Value Date Recorded Sex Assigned at Female 10/13/2024 10:44 AM EDT Legal Sex Female 1:35 AM EST Gender Identity Female 10/13/2024 10:44 AM EDT Sexual Orientation Straight 10/13/2024 10 :44 AM EDT Last Filed Vital Signs Vital Sign Reading Time Taken Comments Blood Pressure 140/70 10/18/2024 2:40 PM EDT Pulse 73 10/18/2024 2:40 PM EDT Temperature 36.5 C (97.7 F) 10/18/2024 2:40 PM EDT Respiratory Rate - - Oxygen Saturation 95% 10/18/2024 2:40 PM EDT Inhaled Oxygen Concentration - - Weight 94.8 kg (209 lb) 10/18/2024 2:40 PM EDT Height 170 cm (5' 6.93 ) 08/03/2023 2:37 PM EST Body Mass Index 32.8 08/03/2023 2:37 PM EST Plan of Treatment Upcoming Encounters Date Type Department Care Team (Late st Contact Info) Description 04/04/2025 3:00 PM EDT Follow-Up [facility] [address] [place] [address] Claire John, DRAW FRAME RUNNER [address] [place] [address] Health Maintenance Due Date Last Done Comments SMOKING Hx and SMOKELESS TOBACCO SCREENING 1979 COLOGUARD 2011 FIT TEST 2011 FOBT 2011 SIGMOIDOSCOPY 2011 VIRTUAL COLONOSCOPY 2011 PNEUMOCOCCAL VACCINES (50+ years) (1 of 1 - PCV) 02/04/2016 COVID-19 VACCINE ( season) 2024 07/15/2021, 09/28/2020, 08/31/2020 MAMMOGRAM 09/02/2024 [...] 08/12/2028 08/12/2023, 03/2023, 07/27/2022, Additional history exists Adult Td,Tdap Booster 04/17/2029 04/17/2019 HEPATITIS A [...] age to complete this topic MENINGOCOCCAL VACCINES (B) Aged Out N o longer eligible based on patient's age to complete this topic Medical Devices Not on file Procedures Procedure Name Priority Date/Time Associated Diagnosis Comments OUTSIDE LAB Routine 12/15/2024 2:20 PM EDT OUTSIDE PATHOLOGY Routine 12/14/2024 2:1 4 PM EDT OUTSIDE PROCEDURE Routine 12/01/2024 2:0 5 PM EDT COMPREHENSIVE METABOLIC PANEL Routine 01/17/2024 5:12 PM EDT LIPID PANEL Routine 08/12/2023 11:16 AM EST HM COLONOSCOPY FOR RESULT ENTRY ONLY Routine 10/23/2022 THINPREP PAP & HPV Routine 07/27/2022 7: 10 PM EST HEPATITIS C ANTIBODY, QUALITATIVE Routine 07/27/2022 7:08 PM EST from Last 3 Months or Most Recently Relevant to Health Maintenance Results * Outside Lab (12/15/2024 2:20 PM EDT) [facility] Provider [place] LAB BLOOD ORDERABLES Amada l Result * Outside Pathology (12/14/2024 2:14 PM EDT) [facility] Provider PATHOLOGY ORDERABLES Amada l Result * Outside Procedure (12/01/2024 2:05 PM EDT) [facility] Provider PROCEDURE/MINOR SURGICAL PERFORMABLES Final Result * Comprehensive metabolic panel (01/17/2024 5:12 PM EDT) Sodium 146 135 - 146 mEq/L [facility] Potassium 4.2 3.5 - 5.3 mEq/L [facility] Chloride 107 98 - 107 mEq/L [facility] CO2 30 20 - 31 mEq/L [facility] Anion Gap 9 4 - 14 [facility] Glucose 84 70 - 99 mg/dL [facility] BUN 13 6 - 20 mg/dL [facility] Creatinine 0.8 0.6 - 1.1 mg/dL [facility] GFR 77 >60 mL/min/1.7 3m^2 [facility] Calcium 10.1 8.4 - 10.2 mg/dL [facility] Corrected Calcium 9.6 8.4 - 10.2 mg/dL [facility] Protein, Total 6.8 6.2 - 8.2 g/dL [facility] Alkaline Phosphatase 51 0 - 130 U/L [facility] Albumin 4.6 3.4 - 5.2 g/dL [facility] ALT (SGPT) 16 0 - 40 U/L [facility] AST (SGOT) 14 0 - 33 U/L [facility] Bilirubin, Total 0.5 0.3 - 1.2 mg/dL [facility] 01/17/2024 5:12 PM EDT 01/17/2024 5:12 PM EDT Narrative Resulting Agency Comment No Claire Mcfaddenno DRAW FRAME RUNNER LAB BLOOD ORDERABLES Final R esult Performing Organization Address [facility] Co de Phone Number [facility] [address] [place] [address] * (ABNORMAL) Lipid panel (08/12/2023 11:16 AM EST) Cholesterol 228(H) <200 mg/dL [facility] Triglycerides 178(H) <150 mg/dL [facility] Cholesterol, HDL 51 >40 mg/dL [facility] LDL Cholesterol, Calculated 141(H) <129 mg/dL [facility] Cholesterol/HDL Ratio 4.47(H) <4.43 [facility] 08/12/2023 11:1 6 AM EST 08/12/2023 11:16 AM EST Narrative Resulting Agency Comment No Yas Alvarez MD LAB BLOOD ORDERABLES Final Res ult Performing Organization Address [facility] de Phone Number [facility] [email or web address] [facility] [address] [place] [address] * HM COLONOSCOPY FOR RESULT ENTRY ONLY (10/23/2022) Historical Provider HEALTH MAINTENANCE Final Result * ThinPrep Pap & HPV (07/27/2022 7:10 PM EST) Clinical Information: Routine exam [facility] LMP: 0 [facility] Prev. PAP: NONE GIVEN [employer] [facility] Prev. BX: NONE GIVEN DEON [employer] [facility] Source: Cervix [facility] Statement of Adequacy: Satisfactory for evaluation. Endocervical/camara sformation zone component present. [facility] Interpretation/ Result: Negative for intraepithelial lesion or malignancy. [facility] Comment: This Pap test has been evaluated with computer assisted technology. [facility] Cytotechnologis t: SXA, CT(ASCP) CT screening location: [id number] [place] [address] LABORATORY Comment SEE NOTE [facility] Comment: EXPLANATORY NOTE: The [...] HPV MRNA E6/E7 Not Detected Not Detected [facility] Comment: Methodology: Machine Former-Mediated Amplification This assay detects E6/E7 viral messenger RNA (mRNA) from 14 high-risk HPV types (16,18,31,33,35,39,45,51,52,56,58,59,66,68). Cervical sources are required for HPV testing. If a vaginal source from a patient who has had a total hysterectomy with removal of cervix was submitted, please contact the testing laboratory for alternative testing options. For additional information, please refer to http://education.ClickandBuy/faq/MHT489k4 (This link if provided for information/ educational purposes only.) 07/27/2022 7:10 PM EST 07/27/2022 7:10 PM EST Narrative [facility] - 07/31/2022 12:34 PM EST Testing performed at: [facility], [address] [place] [address] ([facility], [address], Machine Cell Tuber: ANTON TYLER MD Resulting Agency Comment No us Yas Alvarez MD LAB BLOOD ORDERABLES Final Res ult [facility] [address] [place] [address], [facility] * Hepatitis C antibody, qualitative (07/27/2022 7:08 PM EST) HepC AB Non Reactive Non Reactive;E quivocal;R eactive [facility] 07/27/2022 7:08 PM EST 07/27/2022 7:08 PM EST us Yas Alvarez MD LAB BLOOD [place] [address] from Last 3 Months or Most Recently Relevant to Health Maintenance Insurance [facility] PPO EPO [facility] [place] [address] [place] [address] [place] [address] [place] [address] [place] [address] [place] [address] PPO EPO [facility] PPO EPO [facility] PPO EPO [facility] PPO EPO [facility] PPO EPO [facility] PPO EPO [facility] PPO EPO Member Subscriber Plan / Payer (Ef fective 2004-Present) Name:Shikha Mathis Relation to Subscriber:Spouse Name:MIRTA MATHIS Date of :1966 (Home) Address: [address] [place] [address] Payer ID:[id number] ([facility]) Type:PPO Address: [address] [place], [place] [facility] PPO EPO Care Teams Resident Care Aid Relationship Specialty Start Date End Date Yas Alvarez MD [address] [place] [address] LOGAN Barnes [address] [email or web address] PCP - General Internal Medicine 02/07/19 Yas Alvarez MD [address] [place] [address] LOGAN Barnes [address] [email or web address] Insurance Assigned Provider 01/27/25 Additional Source Comments The information contained in this document represents components of the legal health record. It is not the complete legal health record.[facility]
== END 2025-03-01 08:54 | disposition home or self-care (01) ==
LOC: HO.HBS 08:52
PROVIDERS: Visit Provider Physician Assistant Surgical
DX: Z98.84 Bariatric surgery status (principal)
CPT/HCPCS: 99024

== ENCOUNTER 2025-04-20 11:33 | Outpatient (AMB) | payer BC, SELFPAY ==
--- NOTE | 2025-04-20 11:20 | MHC.OFFVISWM ---
VS Expanded 04/20/25 11:22 Height 5 ft 5 in Weight 149 lb BMI 24.8 Intake Visit Reasons: Phone PO LSG 12/14/24 Allergies codeine Allergy (Mild, Verified 12/14/24 08:05) Shakiness, Vomiting Medication List - Last Reconciled 04/20/25 by RASHMI Tejada finasteride 5 mg PO BEDTIME HPI Comments Details: This?is a?60?yo F who is s/p LSG 12/14/2024. Presents for 4 month post op visit. Weight at last visit on 03/01/2025 was 160.2 pounds; weight today is 149 pounds, representing a 11.2 pound weight loss with a BMI today of 24.8.? No complaints of nausea, emesis, abdominal pain or reflux, or constipation. She was dissatisfied with her meal plans from Dr Ashford - protein bars are not whole foods. She created a meal plan on her own based on information she found online at [employer] website. Present meal plan includes: 8-830 Celebrate rebuild 2 scoops w chobani oat milk 10-1030 / c egg white w cottage cheese and spinach 1-130, 1.5 -2 oz chicken and 1-2 oz cooked veg/ or salad 3-430 pm 2 oz puerto rican yogurt or portabella cheese w piece of banana meal at 630 2 oz chicken and 2 oz cooked veg Drinking 45-50 oz daily tries to get 70-80g per day I've eaten everything and can tolerate many different foods without difficulty Present recommended meal plan includes: (12/27/24) 2 Celebrate rebuild 1 scoop in 8 oz almond milk at 8-10, 11-1 celebrate bar 2-5 meal at 6 pm 3 forks protein and 3 forks veg celebrate rebuild 2 scoops 8-10 pm Exercise routine includes: treadmill at gym 4 x per week 1 hr 400 meagan weight training 4 days per week after [facility] Medical History Hyperlipidemia Lower extremity edema Hypertension GERD (gastroesophageal reflux disease) DJD (degenerative joint disease) Pre-diabetes Pitting edema Obesity Hx of degenerative disc disease Surgical History History of esophagogastroduodenoscopy (EGD) S/P rotator cuff repair Hx of colonoscopy Hx of breast augmentation Hx of LASIK History of left oophorectomy Hx of tubal ligation Hx of cholecystectomy Hx of umbilical hernia repair Family History Mother Diabetes Congestive heart failure Father Colon polyp Tachycardia Paternal Grandmother Colon cancer Colostomy care Tachycardia Social History Household Members: Spouse Housing: House Are you a primary long term care pharmacist to a significant other at home: No Do you presently have visiting nurse or other home services: No Patient Tobacco Use Status: Former Tobacco user service: No Telehealth Telehealth Telehealth Platform: Telephone Location of provider rendering services: other Location of patient: other Patient Identification confirmed using: Name, : Yes Telehealth method: voice only Patient verbally consented to treatment: Yes Patient verbally consented to billing insurance company: Yes Patient informed of any privacy concerns related to visit: Yes Minutes spent on Phone/Video with Pt.: 16 Assessment & Plan Assessment & Plan (1) S/P laparoscopic sleeve gastrectomy: Code(s): Z98.84 - Bariatric surgery status Category: Surgical Plan We discussed the risks of creating her own meal plan without professional guidance. Her weight goal is 140lbs. Informed her that our office could help create a maintenance meal plan for her or could refer to an outside vascular neurologist. Pt reports she wants to have labs done at an outside facility. Will mail them to pt or fax to [employer]. RTC 3mo. Orders: Orders Ferritin Today Z98.84 - Bariatric surgery status TSH reflex Free T4 Today Z98.84 - Bariatric surgery status C Reactive Protein Today Z98.84 - Bariatric surgery status Vitamin B1 Today Z98.84 - Bariatric surgery status Vitamin A Today Z98.84 - Bariatric surgery status Vitamin B12 and Folate Today Z98.84 - Bariatric surgery status Comprehensive Met. Panel Today Z.84 - Bariatric surgery status IRON PROFILE Today Z98.84 - Bariatric surgery status Hemoglobin A1c Today Z98.84 - Bariatric surgery status Insulin Today Z98.84 - Bariatric surgery status Vitamin D 25-OH Total Today Z98.84 - Bariatric surgery status Zinc Today Z98.84 - Bariatric surgery status Complete Blood Count Auto Diff Today Z98.84 - Bariatric surgery status Lipid Panel Today Z98.84 - Bariatric surgery status
[2025-04-20 11:22] VITALS: BMI 24.8
--- OUTSIDE RECORDS SUMMARY | 2025-04-20 12:38 | XMS_ITS | Encounter Summary ---
Author Organization [facility] Address [address] [place] [address] Phone Care Team Providers Care River Driver Name Role Phone Yas Alvarez MD Primary Care Provider [phone] Yas Alvarez MD Unavailable [phone] Encounter Details Date Type Department Care Team (Late st Contact Info) Description 04/04/2025 Orders Only [facility] [address] [place] [address] Marta Ibrahim [place] [address] [place] [address] [email or web address] Prediabetes; Status post bariatric surgery; Vitamin D deficiency, unspecified Social History Tobacco Use Types Packs/Day Years [...] Associated Diagnosis Comments COMPREHENSIVE METABOLIC PANEL Routine 04/04/2025 4:12 PM EDT Status post bariatric surgery IRON & TIBC CALC Routine 04/04/2025 4:12 PM EDT 25-OH VITAMIN D Routine 04/04/2025 4:12 PM EDT Vitamin D deficiency, unspecified VITAMIN B1 (THIAMINE) Routine 04/04/2025 4:12 PM EDT Status post bariatric surgery MAGNESIUM Routine 04/04/2025 4:12 PM EDT Status post bariatric surgery HEMOGLOBIN A1C Routine 04/04/2025 4:12 PM EDT Prediabetes FOLATE Routine 04/04/2025 4:12 PM EDT Status post bariatric surgery FERRITIN Routine 04/04/2025 4:12 PM EDT Status post bariatric surgery VITAMIN B12 Routine 04/04/2025 4:12 PM EDT Status post bariatric surgery documented in this encounter Results * (ABNORMAL) Iron & TIBC calc (04/04/2025 4:12 PM EDT) Iron 56 35 - 170 ug/dL [facility] TIBC Calculated 312 250 - 450 ug/dL [facility] %Sat 18(L) 20 - 55 % [facility] 04/04/2025 4:12 PM EDT 04/04/2025 6:51 PM EDT Narrative Resulting Agency Comment No Claire John [facility] BLOOD ORDERABLES Final R esult [facility] [address] [place] [address] * Folate (04/04/2025 4:12 PM EDT) Pathologist [facility] Folic Acid 22.9 >3.4 ng/mL [facility] Blood 04/04/2025 4:12 PM EDT 04/04/2025 6:51 PM EDT Narrative Resulting Agency Comment No [facility] BLOOD ORDERABLES Final R esult Performing Organization Address [facility] de Phone Number [facility] [address] [place] [address] * (ABNORMAL) Vitamin B1 (thiamine) (04/04/2025 4:12 PM EDT) Pathologist [facility] Vitamin B1 (Thiamine), LC/MS/MS 50(H) 8 - 30 nmol/L [facility] Comment: Vitamin supplementation within 24 hours prior to blood draw may affect the accuracy of the results. This test was developed and its analytical performance characteristics have been determined by [employer] [place], [place]. It has not been cleared or approved by the U.S. Food and Drug Administration. This assay has been validated pursuant to the CLIA regulations and is used for clinical purposes. Blood 04/04/2025 4:12 PM EDT 04/04/2025 6:51 PM EDT Narrative [facility] - 04/13/2025 6:26 PM EDT Wrap sample in foil to protect from light. Requires 3 ml Purple top tube. Cannot be shared with other testing. Testing performed at: [employer], [address] [place] [address], , Public Address Announcer: ERNESTO ROSSI MD,PHD Resulting Agency Comment No Claire John [facility] BLOOD ORDERABLES Final R esult Performing Organization Address City/[facility]/ZIP Co de Phone Number [facility] [address] * 25-OH vitamin D (04/04/2025 4:12 PM EDT) Vitamin D, 25 OH 61 30 - 100 ng/mL [facility] Comment: Sufficient: >30ng/mL Insufficient: 20-30ng/mL Deficient: <20ng/mL Blood 04/04/2025 4:12 PM EDT 04/04/2025 6:51 PM EDT Narrative Resulting Agency Comment No Claire John [facility] BLOOD ORDERABLES Final R esult Performing Organization Address [facility] Co de Phone Number [facility] [address] [place] [address] * Vitamin B12 (04/04/2025 4:12 PM EDT) Pathologist [facility] Vitamin B12 >1500 >200 pg/mL [facility] Blood 04/04/2025 4:12 PM EDT 04/04/2025 6:51 PM EDT Narrative Resulting Agency Comment No Claire John [facility] BLOOD ORDERABLES Final R esult Performing Organization Address City/[facility] Co de Phone Number [facility] [address] [place] [address] * Comprehensive metabolic panel (04/04/2025 4:12 PM EDT) Pathologist [facility] Sodium 141 135 - 146 mEq/L [facility] Potassium 4.3 3.5 - 5.3 mEq/L [facility] Chloride 102 98 - 107 mEq/L [facility] CO2 30 20 - 31 mEq/L [facility] Anion Gap 9 4 - 14 [facility] Glucose 94 70 - 99 mg/dL [facility] BUN 19 6 - 20 mg/dL [facility] Creatinine 0.6 0.6 - 1.1 mg/dL [facility] GFR >100 >60 mL/min/1.7 3m^2 [facility] Calcium 10.1 8.4 - 10.2 mg/dL [facility] Corrected Calcium 9.6 8.4 - 10.2 mg/dL [facility] Protein, Total 6.9 6.2 - 8.2 g/dL [facility] Alkaline Phosphatase 75 0 - 130 U/L [facility] Albumin 4.6 3.4 - 5.2 g/dL [facility] ALT (SGPT) 39 0 - 40 U/L [facility] AST (SGOT) 23 0 - 33 U/L [facility] Bilirubin, Total 0.6 0.3 - 1.2 mg/dL [facility] Blood 04/04/2025 4:12 PM EDT 04/04/2025 6:51 PM EDT Narrative Resulting Agency Comment No Claire John [facility] BLOOD ORDERABLES Final R esult Performing Organization Address City/[facility] Co de Phone Number [facility] [address] [place] [address] * Magnesium (04/04/2025 4:12 PM EDT) Magnesium 2.4 1.7 - 2.4 mg/dL [facility] Blood 04/04/2025 4:12 PM EDT 04/04/2025 6:51 PM EDT Narrative Resulting Agency Comment No Claire John [facility] BLOOD ORDERABLES Final R esult Performing Organization Address [facility] Co de Phone Number [facility] [address] * Ferritin (04/04/2025 4:12 PM EDT) Ferritin 279 10 - 291 ng/mL [facility] Blood 04/04/2025 4:12 PM EDT 04/04/2025 6:51 PM EDT Narrative Resulting Agency Comment No Claire Mcfaddenno [facility] BLOOD ORDERABLES Final R esult Performing Organization Address [facility] Co de Phone Number [place] [place] adicate timeads [facility] [address] [place] [address] * (ABNORMAL) Hemoglobin A1c (04/04/2025 4:12 PM EDT) % HGB A1C 6.0(H) 0.0 - 5.6 % [facility] Comment: </=5.6 - Normal 5.7 - 6.4 - Increased diabetes risk >/= 6.5 - Suggests diabetes </= 7.0 - ADA therapeutic goal when diabetes is present, this target should be relaxed for some individuals depending on age, state of health and risk for low blood sugar. Mean Glucose 114 mg/dL [facility] Blood 04/04/2025 4:12 PM EDT 04/04/2025 6:51 PM EDT Narrative Resulting Agency Comment No Claire John [facility] BLOOD ORDERABLES Final R esult Performing Organization Address [facility] Co de Phone Number [facility] [address] documented in this encounter Visit Diagnoses Diagnosis Prediabetes Other abnormal glucose Status post bariatric surgery Bariatric surgery status Vitamin D deficiency, unspecified documented in this encounter Additional Health Concerns Assessment Noted Time PHQ-9 Depression Total Score: 0 04/04/20 25 3:13 PM EDT PHQ-2 Depression Total Score: 0 04/04/20 25 3:13 PM EDT documented as of this encounter Care Teams River Driver Relationship Specialty Start Date End Date Yas Alvarez MD [address] [place] [id number] [email or web address] PCP - General Internal Medicine 02/07/19 Yas Alvarez MD [address] [place] [phone] Insurance Assigned Provider 01/27/25 documented as of this encounter Additional Source Comments The information contained in this document represents components of the legal health record. It is not the complete legal health record.[facility]
--- OUTSIDE RECORDS SUMMARY | 2025-04-20 12:38 | XMS_ITS | Clinical Summary ---
Author Organization [employer]: 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
--- OUTSIDE RECORDS SUMMARY | 2025-04-20 12:38 | XMS_ITS | Clinical Summary ---
Author Organization [facility] Address [address] [place] [id number] Phone Care Team Providers Care Bsa Officer Name Role Phone Yas Alvarez MD Primary Care Provider [phone] Yas Alvarez MD Unavailable Allergies Active Allergy Reactions Criticality Noted Date Comments Codeine 02/07/2019 Medications finasteride (PROSCAR) 5 mg tablet Take 5 mg by mouth daily. 5 Active estradioL (ESTRACE) 0.01 % (0.1 mg/gram) vaginal cream 0.5 to 1 g once daily for 2 weeks, then go down to 0.5-1 mg 1-3 times/week to control your symptoms 42.5 g 3 5 Active hydroCHLOROthia zide 12.5 mg capsuleIndicati ons:Leg swelling TAKE 1 CAPSULE (12.5 MG TOTAL) BY MOUTH DAILY NEEDED (LEG SWELLING). 90 capsule 3 5 04/04/20 25 Discontinu ed(No longer taking) ergocalciferol (DRISDOL) 50,000 unit capsule TAKE 1 CAPSULE BY MOUTH ONE TIME PER WEEK 8 capsule 5 5 04/04/20 25 Discontinu ed(No longer taking) diclofenac sodium (VOLTAREN) 75 MG EC tablet TAKE 1 TABLET BY MOUTH TWICE A DAY NEEDED 60 tablet 5 5 04/04/20 25 Discontinu ed(No longer taking) Active Problems Problem Noted Date Diagnosed Date Status post bariatric surgery 04/04/2025 Assessment & Plan (04/04/2025 3:50 PM EDT): Labs today, we can send them to Dr. Lr Continue with healthy diet, small portions Physical exercise regularly (PT for her right shoulder as well) Continue with bariatric vitamin Prediabetes 10/19/2024 Assessment & Plan (04/04/2025 3:51 PM EDT): Recheck A1c Assessment & Plan (10/19/2024 8:25 AM EDT): Recheck A1c today Low carb diet Weight loss Pre-op evaluation 01/17/2024 Assessment & Plan (01/17/2024 [...] procedure Will fax note to: Dr. Lucia [phone]. Will send labs with the note Hyperlipidemia 08/03/2023 Assessment & Plan (04/04/2025 3:51 PM EDT): Lipid panel will be done at [facility], not fasting today I expect to see great improvement given her weight loss Continue with healthy diet and exercise Assessment & Plan (10/19/2024 8:25 AM EDT): Recheck lipid panel Low fat diet, weight loss Hammer toe of left foot 11/05/2021 Toe pain, right 11/05/2021 Resolved Problems Problem Noted Date Diagnosed Date Resolved Date Class 1 obesity without seri ous comorbidity with body mass index (BMI) of 32.0 to 32.9 in adult 10/19/2024 04/04/2025 Assessment & Plan (10/19/2024 8:25 AM EDT): Unable to tolerate GLP-1 medication She has consult with Dr. Tyrell Lr, I will send note and labs to his office Lab work she will do tomorrow through [facility] when she's fasting Leg swelling 10/19/2024 04/04/2025 Assessment & Plan (10/19/2024 8:26 AM EDT): She has responded well to HCTZ in the past She can use it as needed to help with the swelling Her BP is also borderline today. If her BP remains elevated, then she may need to be on this daily Weight loss, low sodium, and exercise will decrease BP too, and will help with the swelling Overweight (BMI 25.0-29.9) 04/16/2023 0 10/19/2024 Assessment [...] F/u in Jul or sooner as needed Grief reaction 01/01/2023 04/04/2025 Assessment & Plan (01/01/2023 1:54 PM EDT): Low mood due to grief I recommend she speak with a therapist Go to [employer] to find someone, she would prefer to go in person As her mood stabilizes, I expect her compensatory reaction to gravitate towards sweets should subside as well If mood not getting better, then reach out and we can discuss medication management if she desires Hypertension 04/17/2019 08/09/2023 Lower extremity edema 06/27/2018 [...] Encounters Date Type Department Care Team Description 04/12/2025 Orders Only [address] [address] Marta Ibrahim MA Hyperlipidemia, unspecified hyperlipidemia type 04/04/2025 3:00 PM EDT Follow-Up [address] [address] Claire John FNP Status post bariatric surgery (Primary Dx); Vitamin D deficiency, unspecified; Prediabetes; Hyperlipidemia, unspecified hyperlipidemia type 04/04/2025 Orders Only [address] [address] Marta Ibrahim [place] Prediabetes; Status post bariatric surgery; Vitamin D deficiency, unspecified 03/04/[address] [address] Yas Alvarez MD Medication Refill 02/18/[address] [address] Yas Alvarez MD Medication Refill 02/02/2025 Orders Only [address] [address] Provider, MD Bud from Last 3 Months Immunizations Immunization Administration [...] Sign Reading Time Taken Comments Blood Pressure 112/70 04/04/2025 3:13 PM EDT Pulse 57 04/04/2025 3:13 PM EDT Temperature 36.2 C (97.2 F) 04/04/2025 3:13 PM EDT Respiratory Rate - - Oxygen Saturation 96% 04/04/2025 3:13 PM EDT Inhaled Oxygen Concentration - - Weight 68 kg (150 lb) 04/04/2025 3:13 PM EDT Height 170 cm (5' 6.93 ) 08/03/2023 2:37 PM EST Body Mass Index 23.54 08/03/2023 2:37 PM EST Plan of Treatment Health Maintenance Due Date Last Done Comments SMOKING Hx and SMOKELESS TOBACCO SCREENING 1979 COLOGUARD 2011 FIT TEST 2011 FOBT 2011 SIGMOIDOSCOPY 2011 VIRTUAL COLONOSCOPY 2011 PNEUMOCOCCAL VACCINES (50+ years) (1 of 1 - PCV) 02/04/2016 MAMMOGRAM 09/02/2024 09/02/2022, 09/02/2022 INFLUENZA VACCINE (#1) 2025 COVID-19 VACCINE ( season) 2025 07/15/2021, 09/28/2020, 08/31/2020 PAP SMEAR 07/27/2025 07/27/2022, 05/19, 02/07/2019, Additional history exists DEPRESSION SCREENING 04/04/2026 04/04/2025, 04/04/20 25 COLONOSCOPY 10/24/2027 10/23/2022 COLORECTAL CANCER SCREENING 10/24/2027 HIV ONE-TIME SCREENING (18-65 YEARS) 05/19/2028 Postponed from 02/04/1984 (Patient Declines / Guardian Declines) LIPID PANEL 08/12/2028 08/12/2023, 2023, 07/27/2022, Additional history exists Adult Td,Tdap Booster [...] Procedure Name Priority Date/Time Associated Diagnosis Comments IRON & TIBC CALC Routine 04/04/2025 4:12 PM EDT FOLATE Routine 04/04/2025 4:12 PM EDT Status post bariatric surgery VITAMIN B1 (THIAMINE) Routine 04/04/2025 4:12 PM EDT Status post bariatric surgery 25-OH VITAMIN D Routine 04/04/2025 4:12 PM EDT Vitamin D deficiency, unspecified VITAMIN B12 Routine 04/04/2025 4:12 PM EDT Status post bariatric surgery COMPREHENSIVE METABOLIC PANEL Routine 04/04/2025 4:12 PM EDT Status post bariatric surgery MAGNESIUM Routine 04/04/2025 4:12 PM EDT Status post bariatric surgery FERRITIN Routine 04/04/2025 4:12 PM EDT Status post bariatric surgery HEMOGLOBIN A1C Routine 04/04/2025 4:12 PM EDT Prediabetes LIPID PANEL Routine 08/12/2023 11:16 AM EST HM COLONOSCOPY FOR RESULT ENTRY ONLY Routine 10/23/2022 THINPREP PAP & HPV Routine 07/27/2022 7: 10 PM EST HEPATITIS C ANTIBODY, QUALITATIVE Routine 07/27/2022 7:08 PM EST from Last 3 Months or Most Recently Relevant to Health Maintenance Results * Comprehensive metabolic panel (04/04/2025 4:12 PM EDT) Sodium 141 135 - 146 mEq/L [facility] Potassium 4.3 3.5 - 5.3 mEq/L [facility] Chloride 102 98 - 107 mEq/L [facility] CO2 30 20 - 31 mEq/L [facility] Anion Gap 9 4 - 14 [facility] Glucose 94 70 - 99 mg/dL [facility] BUN 19 6 - 20 mg/dL [facility] Creatinine 0.6 0.6 - 1.1 mg/dL [facility] GFR >100 >60 mL/min/1.7 3m^2 [facility] Calcium 10.1 8.4 - 10.2 mg/dL [facility] Corrected Calcium 9.6 8.4 - 10.2 mg/dL [facility] Protein, Total 6.9 6.2 - 8.2 g/dL [facility] Alkaline Phosphatase 75 0 - 130 U/L [facility] Albumin 4.6 3.4 - 5.2 g/dL [facility] ALT (SGPT) 39 0 - 40 U/L [facility] AST (SGOT) 23 0 - 33 U/L [facility] Bilirubin, Total 0.6 0.3 - 1.2 mg/dL [facility] Blood 04/04/2025 4:12 PM EDT 04/04/2025 6:51 PM EDT Narrative Resulting Agency Comment No us Claire John MILLROOM SUPERVISOR LAB BLOOD ORDERABLES Final R esult [facility] [address] [place] [address], [facility] * (ABNORMAL) Iron & TIBC calc (04/04/2025 4:12 PM EDT) Pathologist [facility] Iron 56 35 - 170 ug/dL [facility] TIBC Calculated 312 250 - 450 ug/dL [facility] %Sat 18(L) 20 - 55 % [facility] 04/04/2025 4:12 PM EDT 04/04/2025 6:51 PM EDT Narrative Resulting Agency Comment No Claire Georges [facility] LAB BLOOD ORDERABLES Final R esult Performing Organization Address [facility] Co de Phone Number [facility] [address] [place] [address] * 25-OH vitamin D (04/04/2025 4:12 PM EDT) [facility] Vitamin D, 25 OH 61 30 - 100 ng/mL [facility] Comment: Sufficient: >30ng/mL Insufficient: 20-30ng/mL Deficient: <20ng/mL Blood 04/04/2025 4:12 PM EDT 04/04/2025 6:51 PM EDT Narrative Resulting Agency Comment No [facility] LAB BLOOD ORDERABLES Final R esult Performing Organization Address [facility] Co de Phone Number [facility] [address] [place] [address] * (ABNORMAL) Vitamin B1 (thiamine) (04/04/2025 4:12 PM EDT) [facility] Vitamin B1 (Thiamine), LC/MS/MS 50(H) 8 - 30 nmol/L [facility] Comment: Vitamin supplementation within 24 hours prior to blood draw may affect the accuracy of the results. This test was developed and its analytical performance characteristics have been determined by [place]. It has not been cleared or approved by the U.S. Food and Drug Administration. This assay has been validated pursuant to the CLIA regulations and is used for clinical purposes. Blood 04/04/2025 4:12 PM EDT 04/04/2025 6:51 PM EDT Narrative [facility] - 04/13/2025 6:26 PM EDT Wrap sample in foil to protect from light. Requires 3 ml Purple top tube. Cannot be shared with other testing. Testing performed at: [facility], [address] [place] [address], , Excel Vba Developer: ERNESTO ROSSI MD,PHD Resulting Agency Comment No Cliare Mcfaddenno [facility] LAB BLOOD ORDERABLES Final R esult Performing Organization Address [facility] Co de Phone Number [facility] [address] [place] [address] * Magnesium (04/04/2025 4:12 PM EDT) Pathologist [facility] Magnesium 2.4 1.7 - 2.4 mg/dL [facility] Blood 04/04/2025 4:12 PM EDT 04/04/2025 6:51 PM EDT Narrative Resulting Agency Comment No Claire Mcfaddenno [facility] LAB BLOOD ORDERABLES Final R esult Performing Organization Address [facility] Co de Phone Number [facility] [address] [place] [address] * (ABNORMAL) Hemoglobin A1c (04/04/2025 4:12 PM EDT) % HGB A1C 6.0(H) 0.0 - 5.6 % [facility] Comment: </=5.6 - Normal 5.7 - 6.4 - Increased diabetes risk >/= 6.5 - Suggests diabetes </= 7.0 - ADA therapeutic goal when diabetes is present, this target should be relaxed for some individuals depending on age, state of health and risk for low blood sugar. Mean Glucose 114 mg/dL [facility] Blood 04/04/2025 4:12 PM EDT 04/04/2025 6:51 PM EDT Narrative Resulting Agency Comment No Claire John MILLROOM SUPERVISOR LAB BLOOD ORDERABLES Final R esult [facility] [address] [place] [address] [address] * Folate (04/04/2025 4:12 PM EDT) Folic Acid 22.9 >3.4 ng/mL [facility] Blood 04/04/2025 4:12 PM EDT 04/04/2025 6:51 PM EDT Narrative Resulting Agency Comment No Claire John MILLROOM SUPERVISOR LAB BLOOD ORDERABLES Final R esult Performing Organization Address City/[facility]/ZIP Co de Phone Number [facility] [address] [place] [address] [address] * Ferritin (04/04/2025 4:12 PM EDT) Ferritin 279 10 - 291 ng/mL [facility] Blood 04/04/2025 4:12 PM EDT 04/04/2025 6:51 PM EDT Narrative Resulting Agency Comment No Claire John MILLROOM SUPERVISOR LAB BLOOD ORDERABLES Final R esult Performing Organization Address City/[facility]/ZIP Co de Phone Number [facility] [address] [place] [address] [address] * Vitamin B12 (04/04/2025 4:12 PM EDT) Vitamin B12 >1500 >200 pg/mL [facility] Blood 04/04/2025 4:12 PM EDT 04/04/2025 6:51 PM EDT Narrative Resulting Agency Comment No Claire John MILLROOM SUPERVISOR LAB BLOOD ORDERABLES Final R esult [facility] [address] [place] [address] [address] * (ABNORMAL) Lipid panel (08/12/2023 11:16 AM EST) Cholesterol 228(H) <200 mg/dL [facility] Triglycerides 178(H) <150 mg/dL [facility] Cholesterol, HDL 51 >40 mg/dL [facility] LDL Cholesterol, Calculated 141(H) <129 mg/dL [facility] Cholesterol/HDL Ratio 4.47(H) <4.43 [facility] 08/12/2023 11:1 6 AM EST 08/12/2023 11:16 AM EST Narrative Resulting Agency Comment No Yas Alvarez MD LAB BLOOD ORDERABLES Final Res ult [facility] [address] [place] [address], [facility] * COLONOSCOPY FOR RESULT ENTRY ONLY (10/23/2022) Historical Provider HEALTH MAINTENANCE Final Result * ThinPrep Pap & HPV (07/27/2022 7:10 PM EST) Clinical Information: Routine exam [facility] LMP: 0 [facility] Prev. PAP: NONE [facility] Prev. BX: NONE [facility] Source: Cervix [facility] Statement of Adequacy: Satisfactory for evaluation. Endocervical/camara sformation zone component present. [facility] Interpretation/ Result: Negative for intraepithelial lesion or malignancy. [facility] Comment: This Pap test has been evaluated with computer assisted technology. [facility] Cytotechnologis t: SXA, CT(ASCP) CT screening location: [id number] [place] [address] LABORATORY Comment SEE NOTE [facility] Comment: EXPLANATORY NOTE: The [...] HPV MRNA E6/E7 Not Detected Not Detected [facility] Comment: Methodology: Forging Die Finisher-Mediated Amplification This assay detects E6/E7 viral messenger RNA (mRNA) from 14 high-risk HPV types (16,18,31,33,35,39,45,51,52,56,58,59,66,68). Cervical sources are required for HPV testing. If a vaginal source from a patient who has had a total hysterectomy with removal of cervix was submitted, please contact the testing laboratory for alternative testing options. For additional information, please refer to http://education.Lamahui/faq/COJ990k0 (This link if provided for information/ educational purposes only.) 07/27/2022 7:10 PM EST 07/27/2022 7:10 PM EST Narrative [facility] - 07/31/2022 12:34 PM EST Testing performed at: [facility], [address] [place] [address] ([address], [address], Excel Vba Developer: ANTON TYLER MD Resulting Agency Comment No Yas Alvarez MD LAB BLOOD ORDERABLES Final Res ult Performing Organization Address [facility] Co de Phone Number [facility] [address] [address], [facility] * Hepatitis C antibody, qualitative (07/27/2022 7:08 PM EST) HepC AB Non Reactive Non Reactive;E quivocal;R eactive [facility] 07/27/2022 7:08 PM EST 07/27/2022 7:08 PM EST Yas Alvarez MD LAB BLOOD ORDERABLES Final Res ult Performing Organization Address [facility] [place] [address] from Last 3 Months or Most Recently Relevant to Health Maintenance Insurance [facility] PPO EPO [facility] PPO EPO [facility] [place] [address] [place] [address] PPO EPO [facility] [place] [address] [place] [address] PPO EPO [facility] PPO EPO [facility] PPO EPO [employer] [facility] PPO EPO [place] [facility] PPO EPO [facility] PPO EPO [facility] EPO Care Teams Bsa Officer Relationship Specialty Start Date End Date Yas Alvarez MD [address] [place] [address] [email or web address] PCP - General Internal Medicine 02/07/19 Yas Alvarez MD [address] [address] [email or web address] Insurance Assigned Provider 01/27/25 Additional Source Comments The information contained in this document represents components of the legal health record. It is not the complete legal health record.[facility]
--- OUTSIDE RECORDS SUMMARY | 2025-04-20 12:38 | XMS_ITS | Encounter Summary ---
Author Organization [facility] Address [address] [place] [address] Phone Care Team Providers Care Trophy Assembler Name Role Phone Yas Alvarez MD Primary Care Provider [phone] Yas Alvarez MD Unavailable Encounter Details Date Type Department Care Team (Late st Contact Info) Description 04/12/2025 Orders Only [facility] [address] [facility] [address] [place] [address] Marta IbrahimTEKOA, [place] [address] [place] [address] [email or web address] Hyperlipidemia, unspecified hyperlipidemia type Social History Tobacco [...] as of this encounter Visit Diagnoses Diagnosis Hyperlipidemia, unspecified hyperlipidemia type documented in this encounter Additional Health Concerns Assessment Noted Time PHQ-9 Depression Total Score: 0 04/04/20 3:13 PM EDT PHQ-2 Depression Total Score: 0 04/04/20 3:13 PM EDT documented as of this encounter Care Teams Trophy Assembler Relationship Specialty Start Date End Date Yas Alvarez MD [address] [address] PCP - General Internal Medicine 02/07/19 Yas Alvarez MD [address] [address] Insurance Assigned Provider 01/27/25 documented as of this encounter Additional Source Comments The information contained in this document represents components of the legal health record. It is not the complete legal health record.[facility]
--- OUTSIDE RECORDS SUMMARY | 2025-04-20 12:38 | XMS_ITS | Clinical Summary ---
Author Organization [facility] Address [address] [place] [address] Care Team Providers Care Horticultural Manager Name Role Phone Unknown, Doctor Primary Care [...] ars (1 of 1 - PCV) 02/04/2016 Alcohol/Substance Use Screening 07/19/2024 Depression Screening and Follow-Up 07/19/2024 Social Drivers of Health Kaylene ual Screening 07/19/2024 Mammogram 09/02/2024 09/02/2022 COVID-19 Vaccine ( season) 2025 07/15/2021, 09/28/2020, 08/31/2020 Influenza Vaccine (#1) 2025 DTaP,Tdap,and Td Vaccines (2 - Td or Tdap) 04/17/2029 04/17/2019 RSV Vaccine (60+ years old a nd patients) (1 - 1-dose 75+ series) 2041 Zoster Vaccines Completed 08/04/2023, 04/18/2023 Insurance [facility] PPO/EPO [facility] PPO/EPO Care Teams Horticultural Manager Relationship Specialty Start Date End Date Unknown, Doctor Unknown Unknown, LOGAN PCP - General 11/01/24
--- OUTSIDE RECORDS SUMMARY | 2025-04-20 12:39 | XMS_ITS | Encounter Summary ---
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
--- OUTSIDE RECORDS SUMMARY | 2025-04-20 12:39 | XMS_ITS | Encounter Summary ---
Author Organization [facility] Address [address] [place] [address] Care Team Providers Care Senior Animal Trainer Name Role Phone No Pcp, Per Patient Primary Care Provider Unavai lable Reason for Visit * Reason Comments Med Refill Encounter Details Date Type Department Care Team (Late st Contact Info) Description 07/21/2024 Refill [facility] [address] [place] [address] Jade Jernigan MD [address] [place] [address] Androgenetic alopecia Social History Tobacco Use Types [...] Info) Description 05/28/2025 12:45 PM EST Telemedicine [facility] Derm[facility] [address] [place] [address] Jade Jernigan MD [address] [place] [address] documented as of this encounter Visit Diagnoses Diagnosis Androgenetic alopecia documented in this encounter Care Teams Senior Animal Trainer Relationship Specialty Start Date End Date No Pcp, Per Patient [place] PCP - General Manager Wound Care 04/24/24 documented as of this encounter
--- OUTSIDE RECORDS SUMMARY | 2025-04-20 12:39 | XMS_ITS | Clinical Summary ---
Author Organization [facility] Address [address] [place] [address] Care Team Providers Care Field Service Specialist Name Role Phone Yas Alvarez MD Primary Care Provider [phone] Allergies Active Allergy Reactions Criticality Noted Date [...] affected area. 30 g 4 04/11/20 25 Triamcinolone Acetonide (KENALOG) 0.1 % ointmentIndicat ions:Intertrigo Apply topically 2 (two) times a day if needed for rash APPLY TO AFFECTED AREA. 60 g 2 4 04/11/20 25 Social History Tobacco Use Types Packs/Day Years [...] Additional history exists COVID-19 Vaccine ( season) 2025 Influenza (#1) 2025 Bone Density Discontinued 09/02/2022 [...] complete this topic Procedures * Due to [place] Curbside law, this organization might not be sharing negative HIV tests. Procedure Name Priority Date/Time Associated Diagnosis Comments DXA BONE DENSITY STUDY AXIAL (LSSPINE, HIP) (DX: OSTEOPENIA) Routine 09/02/2022 3:30 PM EST MAMMOGRAM SCREENING TOMOSYNTHESIS, BILATERAL Routine 09/02/2022 3:23 PM EST Breast cancer screening by mammogram from Last 3 Months or Most Recently Relevant to Health Maintenance Results * Due to [place] Curbside law, this organization might not be sharing [...] DUAL-ENERGY X-RAY ABSORPTIOMETRY (DXA) SCAN: DXA MODEL: HoloMaluuba A in fast scan mode RISK FACTORS: [...] Most Recently Relevant to Health Maintenance Insurance [facility] FEE FOR SERVICE PPO Care Teams Field Service Specialist Relationship Specialty Start Date End Date Yas Alvarez MD [address] [address] PCP - General Internal Medicine 08/07/22
--- OUTSIDE RECORDS SUMMARY | 2025-04-20 12:39 | XMS_ITS | Encounter Summary ---
Author Organization [facility]: 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
--- OUTSIDE RECORDS SUMMARY | 2025-04-20 12:39 | XMS_ITS | Clinical Summary ---
Author Organization [facility] Address [address] [place] [address] Care Team Providers Care Buffer Machine Name Role Phone No Pcp, Per Patient [...] 2 5 Active finasteride (Proscar) 5 mg tabletIndicatio ns:Androgenetic alopecia Take 1 tablet (5 mg) by mouth once daily. 90 tablet 5 Active finasteride (Proscar) 5 mg tabletIndicatio ns:Androgenetic alopecia TAKE 1 TABLET BY MOUTH DAILY BY MOUTH. 90 tablet 5 04/10/20 25 Discontinu ed(Reorder ) Active Problems No known active problems Encounters Date Type Department Care Team Description 04/10/2025 Refill [facility] [address] [place] [address] Jade Jernigan MD Androgenetic alopecia from Last [...] Description 05/28/2025 12:45 PM EST Telemedicine [facility] [address] [place] [address] Jade Jernigan MD [address] [place] [address] Health Maintenance Due Date Last Done Comments CT Colonography 1966 Colonoscopy 1966 Colorectal Cancer Screening 1966 FIT-DNA 1966 FIT 1966 FOBT 1966 HIV Screening 1966 Sigmoidoscopy 1966 Hepatitis B Vaccines (1 of 3 - 19+ 3-dose series) 1985 HPV/Cotest 02/04/1996 Pneumococcal Vaccine: 50+ Years (1 of 1 - PCV) 02/04/2016 Depression Screening 07/19/2024 Mammogram 09/02/2024 09/02/2022, 09/02/2022 COVID-19 Vaccine ( season) 2025 07/15/2021, 09/28/2020, 08/31/2020 Influenza Vaccine (#1) 2025 Cervical Cancer Screening 07/27/2025 Pap Smear 07/27/2025 07/27/2022 Diabetes Screening 04/04/2028 04/04/2025, 0 08/12/2023, 07/27/2022, Additional history exists Lipid Panel 08/12/2028 08/12/2023, [...] patient's age to complete this topic Insurance [facility] Care Teams Buffer Machine Relationship Specialty Start Date End Date No Pcp, Per Patient LOGAN PCP - General Machine Tack Puller 04/24/24
--- OUTSIDE RECORDS SUMMARY | 2025-04-20 12:39 | XMS_ITS | Patient Health Record ---
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 Nonsmoker
--- OUTSIDE RECORDS SUMMARY | 2025-04-20 12:39 | XMS_ITS | Clinical Summary ---
Author Organization [facility] lin Address [address] [facility] [place] [address] Care Team Providers Care Windsmith Name Role Phone Unavailable Primary Care Provider Unavailabl e Immunizations Immunization Administration Dates Next Due Shingrix Recombinant Dose [...] Adults 18 yrs or above (or HM Modifier)([facility]) 02/04/1984 Hepatitis C Virus Infection in Adolescents and Adults: Screening (or Modifier) ([facility]) 02/04/1984 [facility] Screening Reminder: Kaylene [place] for all adults ([facility]) 02/04/1984 Tobacco Smoking Cessation: i n Adults excluding Women: Behavioral and Pharmacotherapy Interventions ([facility]) 02/04/1984 Cervical Cancer Screenin 1-65 yrs of age (or Modifier) 1987 Cervical Cancer Screening: P ap every 3 yrs pts age 21-65 1987 Cervical Cancer: Pap Screeni ng with Modifier timing ([facility]) 1987 Cervical Cancer: hrHPV alone or with cotesting Pap for Pts 30-65yrs screening every 5yrs ([facility]) 1987 Colorectal Cancer Screening 45 -75 Yrs (or HM Modifier) 2011 Colorectal Cancer: FLEXIBLE SIGMOIDOSCOPY Screening every 5 yrs 2011 Colorectal Cancer: Fecal Imm unochemical Test (FIT) Annually [facility] 2011 Colorectal Cancer: High-sens itivity gFOBT Screening Annually [facility] 2011 Colorectal Cancer: Stool Col oguard Screening every 3 yrs 2011 Colorectal Cancer:CT Colonog owen Screening every 5 yrs 2011 Breast Cancer: Screening Kaylene ually age 50-74 yrs (or HM Modifier)([facility]) 02/04/2016 Pneumococcal Vaccination Scr eening: Patients 50+ yrs of age ([facility]) (1 of 1 - PCV) 02/04/2016 Zoster/Shingles Vaccine Seri es Screening: Adults aged 18+ yrs (or HM Modifiers)([facility]) (2 of 2) 06/13/2023 04/18/2023 Flu Vaccination: Yearly for ages 18mos through 64 years (or Modifier)([facility]) 02/16/2025 COVID-19 Vaccine Screening: Initial Series and Booster Status ([facility]) (1 - season) 2025 DTaP/Tdap/Td Vaccines ([facility]) (2 - Td or Tdap) 04/17/2019 Medical Devices Not on file Insurance [facility]
== END 2025-04-20 11:43 | disposition home or self-care (01) ==
LOC: HO.HBS 11:33
PROVIDERS: Visit Provider Physician Assistant Surgical
DX: Z71.3 Dietary counseling and surveillance (principal); Z98.84 Bariatric surgery status
CPT/HCPCS: 98967